=== PATIENT | male | born 1965 | race Caucasian/White ===

== ENCOUNTER 2016-05-17 03:49 | Observation (INO) | payer OTHER ==
[~2016-05-17] VITALS: Ht 182.9 cm; Wt 103.0 kg
[~2016-05-17 03:49] MED LIST: DABI150C PO; GARL10007 PO; LISI-792 PO; MAGN250T16 PO; METF-384 PO; METO50TA16 PO; OMEG10007 PO; TMB/100 PO; potassium PO
--- NOTE | 2016-05-17 04:29 | EMERGENCY ROOM VISIT NOTE ---
History Report prepared by Peg: Maria L Evangelista Under the Supervision of: Dr. Kathleen Luciano D.O. First contact with patient: 04:22 Chief Complaint: CARDIAC ASSESSMENT Stated Complaint: IRREGULAR HEART RHYTHM Nursing Triage Summary: Patient arrives to ED via ALS transport with complaints of being in AFib earlier, feeling his heart race, and pressure of indigestion. Patient denies chest pain at this time, denies SOB. EMS stated that they felt his radial pulse was irregular when theu arrived on scene, but after standing up, getting on to the litter and converted to a regular rhythm on his own. Patient was NSR in the ED. History of Present Illness The patient is a 51 year old male who presents to the Emergency Room with complaints of resolved atrial fibrillation that occurred around 0230 this morning. The patient states that he has a history of atrial fibrillation. He states that he takes Flecainide, Metoprolol, Pradaxa, and Lisinopril. The patient states that the first time he was in atrial fibrillation he had a rapid rate. He states that the second time he went into atrial fibrillation his rate was only irregular. The patient states that today his atrial fibrillation appeared to be rapid and irregular. He denies any recent changes in medication. The patient states that he has gone in and out of atrial fibrillation several times but states that the episodes do not last long. He denies any recent strenuous activity. The patient denies any chest pain, nausea , vomiting, diarrhea, or leg cramping or swelling. He states that his occupation adds stress to his life. The patient states that he converted when EMS arrived. Source of History: patient Onset: 0230 Position: other (global) Quality: other (atrial fibrillation) Timing: resolved Associated Symptoms: No chest pain, No diarrhea, No nausea, No vomiting Review of Systems See HPI for pertinent positives & negatives. A total of 10 systems reviewed and were otherwise negative. Past Medical & Surgical Medical Problems: (1) Atrial fibrillation (2) Diabetes mellitus Family History Diabetes mellitus Heart disease Hypertension Social History Smoking Status: Never Smoker Marital Status: Occupation Status: employed Current/Historical Medications Scheduled Cinnamon (Cinnamon), 500 MG PO BID Dabigatran Etexilate Mesylate (Pradaxa), 150 MG PO BID Fish Oil ([place]-3), 1,200 MG PO DAILY Flecainide Acetate (Tambocor), 50 MG PO BID Garlic (Garlic), 1,000 MG PO DAILY Gemfibrozil (Lopid), 600 MG PO BID Lisinopril (Zestril), 40 MG PO DAILY Metformin Hcl (Glucophage), 1,000 MG PO BIDM Metoprolol Tartrate (Lopressor) (Lopressor), 100 MG PO BID Allergies Coded Allergies: No Known Allergies (Unverified , 05/17/16) Physical Exam Vital Signs Date Time Temp Pulse Resp B/P Pulse Ox O2 Delivery O2 Flow Rate FiO2 05/17/16 06:36 69 19 149/77 95 Room Air 05/17/16 06:23 72 05/17/16 06:08 75 05/17/16 05:20 72 18 158/87 05/17/16 04:06 77 05/17/16 04:03 37.3 82 19 180/97 95 Room Air 05/17/16 04:03 95 Room Air Physical Exam HEENT: Head - normocephalic and atraumatic Pupils are equal, round, and reactive to light. Extraocular eye muscles are intact, and sclera are anicteric. Nose - moist nasal mucosa without discharge. Mouth - moist buccal mucosa. Oropharynx is nonerythematous and there is no tonsillar exudate or edema noted. Neck: Supple; no JVD, nuchal rigidity, cervical lymphadenopathy. Heart: Regular rate and rhythm. There is a normal S1 and S2 with no murmurs, clicks, or gallops appreciated. Lungs: Clear to auscultation bilaterally with no wheezes, rales, or rhonchi. Abdomen: Soft, completely nontender, nondistended, with good bowel sounds. There are no palpable pulsatile masses or hepatosplenomegaly. There is no guarding, rigidity, or rebound noted. Extremities: No evidence of cyanosis, clubbing, or edema. There are easily palpable peripheral pulses. Skin: warm and dry with good turgor and no rashes. Medical Decision & Procedures ER Provider Diagnostic Interpretation: 1 view chest x-ray interpreted by me: no pleural effusion, no congestive heart failure Laboratory Results 05/17/16 04:00 Red Blood Count 4.84, Mean Corpuscular Volume 83.5, Mean Corpuscular Hemoglobin 30.4, Mean Corpuscular Hemoglobin Concent 36.4, Mean Platelet Volume 11.5, Neutrophils (%) (Auto) 53.9, Lymphocytes (%) (Auto) 34.8, Monocytes (%) (Auto) 7.7, Eosinophils (%) (Auto) 3.0, Basophils (%) (Auto) 0.3, Neutrophils # (Auto) 4.77, Lymphocytes # (Auto) 3.08, Monocytes # (Auto) 0.68, Eosinophils # (Auto) 0.27, Basophils # (Auto) 0.03 05/17/16 04:00 Test 05/17/16 04:00 White Blood Count 8.86 K/uL (4.8-10.8) Red Blood Count 4.84 M/uL (4.7-6.1) Hemoglobin 14.7 g/dL (14.0-18.0) Hematocrit 40.4 % (42-52) Mean Corpuscular Volume 83.5 fL (80-100) Mean Corpuscular Hemoglobin 30.4 pg (25-34) Mean Corpuscular Hemoglobin Concent 36.4 g/dl (32-36) Platelet Count 275 K/uL (130-400) Mean Platelet Volume 11.5 fL (7.4-10.4) Neutrophils (%) (Auto) 53.9 % Lymphocytes (%) (Auto) 34.8 % Monocytes (%) (Auto) 7.7 % Eosinophils (%) (Auto) 3.0 % Basophils (%) (Auto) 0.3 % Neutrophils # (Auto) 4.77 K/uL (1.4-6.5) Lymphocytes # (Auto) 3.08 K/uL (1.2-3.4) Monocytes # (Auto) 0.68 K/uL (0.11-0.59) Eosinophils # (Auto) 0.27 K/uL (0-0.5) Basophils # (Auto) 0.03 K/uL (0-0.2) RDW Standard Deviation 38.9 fL (36.4-46.3) RDW Coefficient of Variation 12.8 % (11.5-14.5) Immature Granulocyte % (Auto) 0.3 % Immature Granulocyte # (Auto) 0.03 K/uL (0.00-0.02) Anion Gap 10.0 mmol/L (3-11) Est Creatinine Clear Calc Drug Dose 109.2 ml/min Estimated GFR () 100.4 Estimated GFR (Non- 86.6 BUN/Creatinine Ratio 14.7 (10-20) Estimated Average Glucose 301 mg/dl Hemoglobin A1c 12.1 % (4.5-5.6) Calcium Level 9.2 mg/dl (8.5-10.1) Magnesium Level 1.9 mg/dl (1.8-2.4) Total Bilirubin 0.3 mg/dl (0.2-1) Direct Bilirubin 0.1 mg/dl (0-0.2) Aspartate Amino Transf (AST/SGOT) 26 U/L (15-37) Alanine Aminotransferase (ALT/SGPT) 52 U/L (12-78) Alkaline Phosphatase 29 U/L (45-117) Total Creatine Kinase 61 U/L (39-308) Creatine Kinase MB 1.1 ng/ml (0.5-3.6) Creatine Kinase MB Ratio 1.8 (0-3.0) Troponin I < 0.015 ng/ml (0-0.045) Pro-B-Type Natriuretic Peptide 67 pg/ml (0-900) Total Protein 7.8 gm/dl (6.4-8.2) Albumin 3.5 gm/dl (3.4-5.0) Beta-Hydroxybutyric Acid 3.71 mg/dL (0.2-2.81) Thyroid Stimulating Hormone (TSH) 2.010 uIu/ml (0.300-4.500) Laboratory results per my review. Medications Administered Medications (Trade) Dose Ordered Sig/Faustino Route Start Time Stop Time Status Last Admin Dose Admin Sodium Chloride 1,000 ml @ 200 mls/hr Q5H STAT IV 05/17/16 06:34 05/17/16 08:58 DC 05/17/16 06:34 200 MLS/HR Sodium Chloride (Nss 1000ml) 1,000 ml @ 125 mls/hr Q8H IV 05/17/16 07:40 05/17/16 11:59 DC 05/17/16 09:50 125 MLS/HR Insulin Glargine (Lantus Solostar Pen) 8 unit NOW ONCE SC 05/17/16 07:45 05/17/16 08:12 DC 05/17/16 08:37 8 UNIT Procedure The patient was treated with Sodium Chloride 1000 ml @ 200 mls/hr IV. ECG Rate (beats per minute): 79 Rhythm: normal sinus Findings: no acute ischemic change, no ectopy ED Course 0441: Past medical records reviewed. The patient was evaluated in room A2. A complete history and physical exam was performed. A twelve-lead EKG was obtained as described above. An IV lock was initiated and labs were drawn as above. He was observed on the personnel monitor. 0543: I reevaluated the patient and he states that he feels fine. I updated him on his blood glucose level. 0603: I reevaluated the patient and he is resting comfortably. I discussed all the exam findings with him and I discussed the treatment plan. He verbalized complete understanding and agreement. He will be evaluated for further treatment. 0630: CHRISTA Caicedo Was contacted and said he would have the daylight shift come to the ER to see the patient . The [facility] will evaluate the patient for further treatment. 0634: Ordered Sodium Chloride 1000 ml @ 200 mls/hr IV. Medical Decision The patient is a 51 year old male who presents to the ED with resolved atrial fibrillation. Differential diagnosis includes A-fib with RVR, cardiac ischemia, acute coronary syndrome. Lab interpretation: normal white count, stable H&H, normal renal function, glucose 403, BHA 7.1, normal TSH, negative cardiac enzyme, BNP 67, normal LFTs. This is a 51-year-old male patient with a history of diabetes and A. fib who presents to the emergency department after having significant palpitations. When EMS initially saw the patient, took a pulse which was noted to be tachycardic and irregular. As they're moving the patient to the stretcher, the A. fib broke. Upon arrival in the emergency room, the patient was in a normal sinus rhythm. There is no arrhythmia while here in the ER. However, the patient has significant hyperglycemia with an elevated BHA concerning for DKA. I did discuss the case with the [facility] hospitalist JOSE CARLOS and they will evaluate the patient for further care. The patient is [id number] and is only taking metformin. Consults Time Called: [phone] Consulting Physician: CHRISTA Caicedo Returned Call: [phone] I discussed the patient's case with CHRISTA Caicedo. The [facility] will evaluate the patient for further treatment. Impression Primary Impression: Atrial fibrillation Additional Impression: Diabetes mellitus with hyperglycemia Scribe Attestation The scribe's documentation has been prepared under my direction and personally reviewed by me in its entirety. I confirm that the note above accurately reflects all work, treatment, procedures, and medical decision making performed by me. Departure Information Dispostion Being Evaluated By Hospitalist Referrals Mag Dewey M.D. (PCP) Problem Qualifiers
[2016-05-17 04:50] LABS: BASO % 0.3 %; BASO ABS # 0.03 K/uL (0-0.2); COMPLETE YES; HEMATOCRIT 40.4 % (42-52); IG% 0.3 %; LYMPH % 34.8 %; LYMPH ABS # 3.08 K/uL (1.2-3.4); MEAN CELL VOLUME 83.5 fL (80-100); MEAN CORPUSCULAR HEMOGLOBIN 30.4 pg (25-34); MEAN CORPUSCULAR HGB CONC 36.4 g/dl (32-36); MEAN PLATELET VOLUME 11.5 fL (7.4-10.4); MONO % 7.7 %; NEUT % 53.9 %; PLATELET COUNT 275 K/uL (130-400); RED BLOOD COUNT 4.84 M/uL (4.7-6.1); WHITE BLOOD COUNT 8.86 K/uL (4.8-10.8)
[2016-05-17 05:12] LABS: ALKALINE PHOSPHATASE 29 U/L (45-117); ALT/SGPT 52 U/L (12-78); AST/SGOT 26 U/L (15-37); BLOOD UREA NITROGEN 15 mg/dl (7-18); BUN/CREATININE RATIO 14.7 (10-20); CALCIUM 9.2 mg/dl (8.5-10.1); CARBON DIOXIDE 24 mmol/L (21-32); CHLORIDE 99 mmol/L (98-107); CKMB/CK RATIO 1.8 (0-3.0); CREATININE 0.99 mg/dl (0.60-1.40); GLUCOSE 403 mg/dl (70-99); SODIUM 133 mmol/L (136-145)
[2016-05-17] MEDS ORDERED: GEMF600T3 PO (05:17)
[2016-05-17] MEDS ORDERED: CINN1CAP2 PO (05:17)
[2016-05-17 05:38] LABS: BETA-HYDROXYBUTYRATE 3.71 mg/dL (0.2-2.81)
[2016-05-17] MEDS ORDERED: SODIUM CHLORIDE 0.9% 1000ML 1,000 ML IV STA (06:34)
[2016-05-17] MEDS ORDERED: SODIUM CHLORIDE 0.9% 1000ML 1,000 ML IV SCH (07:40)
[2016-05-17] MEDS ORDERED: METOPROLOL TARTRATE 1 MG/ML VIAL IV PRN (07:45)
[2016-05-17] MEDS ORDERED: ACETAMINOPHEN 325 MG TAB PO PRN (07:45)
[2016-05-17] MEDS ORDERED: INSULIN GLARGINE SOLOSTAR 100 UNITS/ML 3 ML PEN SC ONE (07:45)
[2016-05-17] MEDS ORDERED: ALUMINUM/MAGNESIUM/SIMETH (MAALOX MAX) 30 ML UDC PO PRN (07:45)
[2016-05-17] MEDS ORDERED: ONDANSETRON INJ 2 MG/ML 2 ML VIAL IV PRN (07:45)
[2016-05-17] MEDS ORDERED: POLYETHYLENE (MIRALAX) 17 GM PACK PO PRN (07:45)
[2016-05-17] MEDS ORDERED: MAGNESIUM HYDROXIDE SUSP 30 ML UDC PO PRN (07:45)
[2016-05-17] MEDS ORDERED: NITROGLYCERIN 0.4 MG SL PER TAB CHARGE SL PRN (07:45)
--- NOTE | 2016-05-17 08:01 | DIAGNOSTIC IMAGING REPORT ---
SINGLE VIEW CHEST CLINICAL HISTORY: Atrial fibrillation. FINDINGS: An AP, portable, upright chest radiograph is compared to study dated 08/13/2012. The examination is degraded by portable technique and patient rotation. The heart is top normal for projection. The pulmonary vasculature is noncongested. The lungs and pleural spaces are clear. No pneumothorax is seen. The bony thorax is grossly intact. IMPRESSION: No acute cardiopulmonary abnormality. Electronically signed by: Riaz Barney M.D. 05/17/2016 8:00 AM Dictated Date/Time: 05/17/2016 7:59 AM
--- NOTE | 2016-05-17 08:05 | History and Physical ---
History & Physical Date & Time of Service: May 17, 2016 at 07:48 Chief Complaint: Irregular Heart Rhythm Primary Care Physician: Mag Dewey M.D. History of Present Illness Source: patient, clinic records, hospital records Patient is a pleasant 51 y/o male, with PMHx of a.fib w/ RVR, T2DM, HTN, and hypercholesterolemia, who presented to the ED via EMS due to a.fib w/ RVR. Patient felt an irregular and fast heart rate at 0230 this morning. He converted in EMS while on his way to the emergency room. EKG at arrival to ED reported NSR. He has been successfully cardioverted x2 in the past. While in the ED, patient was found to be hyperglycemic w/ blood sugar of 403, beta- hydroxybutyric of 3.71. Per patient, during the winter months his sugars always elevate. He has been running 230-250s. He reports taking only Metformin 1000 mg BID. Currently, patient states he is feeling well. He denies any recent illnesses. Patient denies any fever, chills, sweats, lightheadedness, dizziness , vision changes, CP, palpitations, edema, SOB, wheezing, cough, abdominal pain , nausea, vomiting, diarrhea, urinary symptoms, melena, numbness/tingling, weakness, muscle/joint pain, anxiety/depression, active bleeding, or new skin discoloration/changes. Past Medical/Surgical History Medical Problems: 1. A.fib 2. T2DM 3. HTN 4. Hypercholesterolemia Family History Diabetes mellitus Heart disease Hypertension Social History Smoking Status: Former Smoker Marital Status: Occupational Status: employed ([employer] offs[employer] ) Immunizations History of Influenza Vaccine: N/A History of Tetanus Vaccine?: utd History of Pneumococcal: No History of Hepatitis B Vaccine: No Allergies Coded Allergies: No Known Allergies (Unverified , 05/17/16) Home Medications Scheduled Cinnamon (Cinnamon), 500 MG PO BID Dabigatran Etexilate Mesylate (Pradaxa), 150 MG PO BID Fish Oil ([place]-3), 1,200 MG PO DAILY Flecainide Acetate (Tambocor), 50 MG PO BID Garlic (Garlic), 1,000 MG PO DAILY Gemfibrozil (Lopid), 600 MG PO BID Lisinopril (Zestril), 40 MG PO DAILY Metformin Hcl (Glucophage), 1,000 MG PO BIDM Metoprolol Tartrate (Lopressor) (Lopressor), 100 MG PO BID Physical Exam Vital Signs Date Time Temp Pulse Resp B/P Pulse Ox O2 Delivery O2 Flow Rate FiO2 05/17/16 06:36 69 19 149/77 95 Room Air 05/17/16 06:23 72 05/17/16 06:08 75 05/17/16 05:20 72 18 158/87 05/17/16 04:06 77 05/17/16 04:03 37.3 82 19 180/97 95 Room Air 05/17/16 04:03 95 Room Air General Appearance: no apparent distress Head: normocephalic, atraumatic Eyes: normal inspection, PERRL ENT: hearing grossly normal Neck: supple Respiratory/Chest: lungs clear, no respiratory distress, no accessory muscle use Cardiovascular: regular rate, rhythm Abdomen/GI: normal bowel sounds, non tender, soft Back: normal inspection Extremities/Musculoskelatal: no calf tenderness, no pedal edema Neurologic/Psych: alert, normal mood/affect, oriented x 3 Skin: normal color, warm/dry, no rash Diagnostics Laboratory Results Results Past 24 Hours Test 05/17/16 04:00 Range/Units White Blood Count 8.86 4.8-10.8 K/uL Red Blood Count 4.84 4.7-6.1 M/uL Hemoglobin 14.7 14.0-18.0 g/dL Hematocrit 40.4 42-52 % Mean Corpuscular Volume 83.5 80-100 fL Mean Corpuscular Hemoglobin 30.4 25-34 pg Mean Corpuscular Hemoglobin Concent 36.4 32-36 g/dl Platelet Count 275 130-400 K/uL Mean Platelet Volume 11.5 7.4-10.4 fL Neutrophils (%) (Auto) 53.9 % Lymphocytes (%) (Auto) 34.8 % Monocytes (%) (Auto) 7.7 % Eosinophils (%) (Auto) 3.0 % Basophils (%) (Auto) 0.3 % Neutrophils # (Auto) 4.77 1.4-6.5 K/uL Lymphocytes # (Auto) 3.08 1.2-3.4 K/uL Monocytes # (Auto) 0.68 0.11-0.59 K/uL Eosinophils # (Auto) 0.27 0-0.5 K/uL Basophils # (Auto) 0.03 0-0.2 K/uL RDW Standard Deviation 38.9 36.4-46.3 fL RDW Coefficient of Variation 12.8 11.5-14.5 % Immature Granulocyte % (Auto) 0.3 % Immature Granulocyte # (Auto) 0.03 0.00-0.02 K/uL Sodium Level 133 136-145 mmol/L Potassium Level 4.0 3.5-5.1 mmol/L Chloride Level 99 98-107 mmol/L Carbon Dioxide Level 24 21-32 mmol/L Anion Gap 10.0 3-11 mmol/L Blood Urea Nitrogen 15 7-18 mg/dl Creatinine 0.99 0.60-1.40 mg/dl Est Creatinine Clear Calc Drug Dose 109.2 ml/min Estimated GFR () 100.4 Estimated GFR (Non- 86.6 BUN/Creatinine Ratio 14.7 10-20 Random Glucose 403 70-99 mg/dl Calcium Level 9.2 8.5-10.1 mg/dl Total Bilirubin 0.3 0.2-1 mg/dl Direct Bilirubin 0.1 0-0.2 mg/dl Aspartate Amino Transf (AST/SGOT) 26 15-37 U/L Alanine Aminotransferase (ALT/SGPT) 52 12-78 U/L Alkaline Phosphatase 29 45-117 U/L Total Creatine Kinase 61 39-308 U/L Creatine Kinase MB 1.1 0.5-3.6 ng/ml Creatine Kinase MB Ratio 1.8 0-3.0 Troponin I < 0.015 0-0.045 ng/ml Pro-B-Type Natriuretic Peptide 67 0-900 pg/ml Total Protein 7.8 6.4-8.2 gm/dl Albumin 3.5 3.4-5.0 gm/dl Beta-Hydroxybutyric Acid 3.71 0.2-2.81 mg/dL Thyroid Stimulating Hormone (TSH) 2.010 0.300-4.500 uIu/ml Diagnostic Radiology SINGLE VIEW CHEST CLINICAL HISTORY: Atrial fibrillation. FINDINGS: An AP, portable, upright chest radiograph is compared to study dated 08/13/2012. The examination is degraded by portable technique and patient rotation. The heart is top normal for projection. The pulmonary vasculature is noncongested. The lungs and pleural spaces are clear. No pneumothorax is seen. The bony thorax is grossly intact. IMPRESSION: No acute cardiopulmonary abnormality. Electronically signed by: Riaz Barney M.D. 05/17/2016 8:00 AM Dictated Date/Time: 05/17/2016 7:59 AM The status of this report is Signed. Draft = Not yet reviewed or approved by Radiologist. Signed = Reviewed and approved by Radiologist. EKG MASON DELGADO ID:[id number] 17-MAY-2016 03:53:54 [facility] Normal sinus rhythm Possible Left atrial enlargement Septal infarct , age undetermined Abnormal ECG When compared with ECG of 10-SEP-2012 07:38, No significant change was found 25mm/s 10mm/mV 150Hz 8.0 SP2 12SL 241 NIDIA: 0 Referred by: Referred Self Unconfirmed Vent. 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 Santana T2DM w/ hyperglycemia: - Lantus 8 u now - BSG ACHS w/ sliding insulin scale - Continue Metformin 1000 mg PO BID - Check ha1c--> patient will likely need additional glycemic medications- blood sugars have been running 230-250s Mild hyponatremia: Treat w/ IV NSS @ 125 ml/hr HTN: Continue Lisinopril 40 mg PO daily Hypercholesterolemia: Continue Gemfibrozil 600 mg PO BID GI Prophylaxis: Maalox PRN, IV Zofran PRN, Colace and/or Milk of Mag PRN DVT prophylaxis: Pradaxa, BENJAMIN and SCDs Code Status: LEVEL I, FULL Dispo: Discharge to home once medically stable Level of Care Telemetry Resuscitation Status FULL RESUSCITATION VTE Prophylaxis VTE Risk Assessment Done? Y/N: Yes Risk Level: Low Given or contraindicated: Other Anticoagulation, T.E.D. Stockings, SCD's
[2016-05-17] MEDS ORDERED: IV FLUIDS COMPLETED PRN (08:15)
[2016-05-17] MEDS ORDERED: GLUCOSE 10 TABS/TUBE PO PRN (08:30)
[2016-05-17] MEDS ORDERED: GLUCAGON FOR INJ 1 MG VIAL SQ PRN (08:30)
[2016-05-17] MEDS ORDERED: DEXTROSE 50% 50 ML SYR IV PRN (08:30)
[2016-05-17] MEDS ORDERED: GLUCOSE 40% GEL 15 GM TUBE PO PRN (08:30)
[2016-05-17 09:05] VITALS: BP 153/92; PULSE 63; TEMP 36.9; O2SAT 96; Ht 182.9 cm; Wt 103.0 kg
[2016-05-17] MEDS: METFORMIN HCL 500 MG TAB PO SCH ×2 (09:50→17:18)
[2016-05-17] MEDS: OMEGA-3 (PURIFIED FISH OIL) 1 GM CAP PO SCH (09:50)
[2016-05-17] MEDS: METOPROLOL TARTRATE 50 MG TAB PO SCH ×2 (09:51→21:02)
[2016-05-17] MEDS: GEMFIBROZIL 600 MG TAB PO SCH ×2 (09:51→21:03)
[2016-05-17] MEDS: DABIGATRAN ELEXILATE 75 MG CAP PO SCH ×2 (09:51→21:03)
[2016-05-17] MEDS: FLECAINIDE ACETATE 100 MG TAB PO SCH ×2 (09:51→21:03)
[2016-05-17] MEDS: LISINOPRIL 20 MG TAB PO SCH (09:52)
[2016-05-17 10:07] LABS: ESTIMATED AVERAGE GLUCOSE 301 mg/dl; HA1C FLAG Normal (Normal)
[2016-05-17 11:56] VITALS: BP 154/83; PULSE 58; TEMP 36.7; O2SAT 95
[2016-05-17] MEDS ORDERED: SITAGLIPTIN 25 MG TAB PO ONE (11:57)
[2016-05-17] MEDS: INSULIN ASPART 100 UNITS/ML 3 ML PEN SC SCH ×3 (12:23→21:00)
[2016-05-17 16:30] VITALS: BP 121/75; PULSE 65; TEMP 36.3; O2SAT 98
[2016-05-17 19:33] VITALS: BP 131/68; PULSE 65; TEMP 36.6; O2SAT 97
[2016-05-17 23:20] VITALS: BP 111/67; PULSE 63; TEMP 36.8; O2SAT 98
[2016-05-18 04:12] VITALS: BP 128/78; PULSE 57; TEMP 36.8; O2SAT 98
[2016-05-18 07:05] VITALS: BP 135/77; PULSE 53; TEMP 36.9; O2SAT 97
[2016-05-18 07:32] LABS: BUN/CREATININE RATIO 17.7 (10-20); CALCIUM 9.1 mg/dl (8.5-10.1); CREATININE 0.84 mg/dl (0.60-1.40); POTASSIUM 3.8 mmol/L (3.5-5.1)
[2016-05-18] MEDS: LISINOPRIL 20 MG TAB PO SCH (08:03)
[2016-05-18] MEDS: FLECAINIDE ACETATE 100 MG TAB PO SCH (08:03)
[2016-05-18] MEDS: DABIGATRAN ELEXILATE 75 MG CAP PO SCH (08:04)
[2016-05-18] MEDS: GEMFIBROZIL 600 MG TAB PO SCH (08:05)
[2016-05-18] MEDS: METOPROLOL TARTRATE 50 MG TAB PO SCH (08:05)
[2016-05-18] MEDS: METFORMIN HCL 500 MG TAB PO SCH (08:06)
[2016-05-18] MEDS: OMEGA-3 (PURIFIED FISH OIL) 1 GM CAP PO SCH (08:06)
[2016-05-18] MEDS: INSULIN ASPART 100 UNITS/ML 3 ML PEN SC SCH (08:14)
[2016-05-18] MEDS ORDERED: JNV100 PO (08:48)
--- NOTE | 2016-05-18 08:53 | Discharge Instructions ---
Discharge Instructions Date of Service May 18, 2016. Admission Reason for Admission: Diabetes Mellitus With Hyperglycemia Discharge Discharge Diagnosis / Problem: Atrial fibrillation, paroxysmal. DM type II with hyperglycemia Discharge Goals Goal(s): Improve function, Improve disease control Activity Recommendations Activity Limitations: resume your previous activity Lifting Limitations: none Exercise/Sports Limitations: as tolerated May Resume Sexual Activity: when tolerated Shower/Bathe: no limitations Driving or Machine Use: no limitations . Instructions / Follow-Up Instructions / Follow-Up Medications: resume all previous medications - JANUVIA: new medication for Diabetes, 100mg daily, take every morning Atrial fibrillation: you were in normal rhythm entire admission Diabetes: poorly controlled with HbA1c of 12.1 indicating average sugars 301 at home. continue Metformin 1000mg daily, added Januvia 100mg every morning important that you eat low carbohydrate diet, high proteins, healthy fats ( nuts, olive oil) cannot stress enough the importance of losing weight, goal for you initially would be 10% of body weight which would be 25 pounds over next 3 months get regular exercise as we discussed, ideally you would benefit from long acting insulin to help get your A1c to goal, would recommend Lantus 15 units every morning you can discuss this further with Dr. Dewey FOLLOW UP - Dr. Dewey in two weeks as previously scheduled Current Hospital Diet Patient's current hospital diet: Diabetes Type 1 Diet Discharge Diet Recommended Diet: Diabetes Type 2 Diet Pending Studies Studies pending at discharge: no Laboratory Results Last Resulted CBC 05/17/16 04:00 Red Blood Count 4.84, Mean Corpuscular Volume 83.5, Mean Corpuscular Hemoglobin 30.4, Mean Corpuscular Hemoglobin Concent 36.4, Mean Platelet Volume 11.5, Neutrophils (%) (Auto) 53.9, Lymphocytes (%) (Auto) 34.8, Monocytes (%) (Auto) 7.7, Eosinophils (%) (Auto) 3.0, Basophils (%) (Auto) 0.3, Neutrophils # (Auto) 4.77, Lymphocytes # (Auto) 3.08, Monocytes # (Auto) 0.68, Eosinophils # (Auto) 0.27, Basophils # (Auto) 0.03 Last Resulted BMP 05/18/16 06:40 Hemoglobin A1c Test 05/17/16 04:00 Range/Units Estimated Average Glucose 301 mg/dl Hemoglobin A1c 12.1 H 4.5-5.6 % Medical Emergencies . Who to Call and When: Medical Emergencies: If at any time you feel your situation is an emergency, please call 911 immediately. . Non-Emergent Contact Non-Emergency issues call your: Primary Care Provider Call Non-Emergent contact if: you have any medication questions . . "Provider Documentation" section prepared by Ray Bryant. VTE Core Measure Inpt VTE Proph given/why not?: Other Anticoagulation, T.E.D. Stockings, SCD's [place] Drug Monitoring Program Search Results: no issues identified
--- NOTE | 2016-05-18 08:57 | Discharge Summary ---
Discharge Summary Date of Service May 18, 2016. Discharge Summary Admission Date: May 17, 2016 at 07:47 Discharge Date: May 18, 2016 Discharge Disposition: Home Principal Diagnosis: DM type II with hyperglycemia Problems/Secondary Diagnoses: Paroxysmal atrial fibrillation Immunizations: Have You Had Influenza Vaccine: N/A History of Tetanus Vaccine?: utd History of Pneumococcal: No History of Hepatitis B Vaccine: No Procedures: none Consultations: none Medication Reconciliation New Medications: Sitagliptin (Januvia) 100 Mg Tab 100 MG PO DAILY, #30 TAB 3 Refills Continued Medications: Cinnamon (Cinnamon) 500 Mg Cap 500 MG PO BID Dabigatran Etexilate Mesylate (Pradaxa) 150 Mg Cap 150 MG PO BID, #60 CAP Fish Oil ([place]-3) 1 Ea Cap 1200 MG PO DAILY, CAP Flecainide Acetate (Tambocor) 100 Mg Tab 50 MG PO BID, #30 Garlic (Garlic) 1,000 Mg Cap 1000 MG PO DAILY Gemfibrozil (Lopid) 600 Mg Tab 600 MG PO BID, TAB Lisinopril (Zestril) 20 Mg Tab 40 MG PO DAILY, TAB Metformin Hcl (Glucophage) 1,000 Mg Tab 1000 MG PO BIDM, TAB Metoprolol Tartrate (Lopressor) (Lopressor) 50 Mg Tab 100 MG PO BID, TAB Discharge Exam Patient feeling well, no issues over night. long talk about diabetes control, eating healthy, weight loss, exercise, and my recommendation for Lantus which again he refuses. Review of Systems: Constitutional: No chills, No fatigue, No fever, No problem reported, No sweats, No weakness, No weight loss Eyes: No diplopia, No discharge, No eye pain, No problem reported, No redness, No worsening of vision ENT: No dental problems, No hearing loss, No nasal symptoms, No problem reported, No sore throat, No tinnitus, No trouble swallowing, No unusual epistaxis Respiratory: No cough, No dyspnea at rest, No dyspnea on exertion, No hemoptysis, No problem reported, No shortness of breath, No sputum, No wheezing Cardiovascular: No PND, No chest pain, No claudication, No edema, No orthopnea, No palpitations, No problem reported Abdomen: No GI bleeding, No constipation, No diarrhea, No nausea, No pain, No problem reported, No vomiting Musculoskeletal: No calf pain, No joint pain, No muscle pain, No problem reported, No swelling Genitourinary - Male: No dysuria, No hematuria, No urinary frequency, No urinary urgency Neurologic: No balance problems, No memory loss, No numbness/tingling, No paralysis, No problem reported, No vertigo, No weakness Psychiatric: No anhedonism, No anxiety, No depression symptoms, No insomnia , No problem reported, No substance abuse Endocrine: No excessive thirst, No excessive urination, No fatigue, No problem reported Hematologic / Lymphatic: No abnormal bleeding/bruising, No clotting problems , No night sweats, No problem reported, No swollen lymph nodes Integumentary: No bleeding, No color change, No itch, No new/changing skin lesions, No problem reported, No rash Physical Exam: General Appearance: WD/WN, no apparent distress Eyes: normal inspection, EOMI, sclerae normal ENT: normal ENT inspection, hearing grossly normal, pharynx normal Neck: supple, no adenopathy, no JVD, trachea midline Respiratory/Chest: chest non-tender, lungs clear, normal breath sounds, no respiratory distress, no accessory muscle use Cardiovascular: regular rate, rhythm, no edema, no gallop, no JVD, no murmur , normal peripheral pulses Abdomen / GI: normal bowel sounds, non tender, soft, no organomegaly Extremities: normal inspection, no calf tenderness, normal capillary refill , no pedal edema, normal range of motion, pelvis stable Neurologic/Psychiatric: java engineer II-XII nml as tested, no motor/sensory deficits , alert, normal mood/affect, normal reflexes, oriented x 3 Skin: normal color, warm/dry, no rash Hospital Course 51 yo male with h/o paroxysmal atrial fibrillation, typically maintained in NSR on Flecainide, had brief episode of atrial fibrillation but converted spontaneously prior to arrival in ED - Paroxysmal atrial fibrillation: converted spontaneously, observe overnight, electrolytes normal, remained in NSR continue Flecainide, Lopressor on Pradaxa for anticoagulation follow up with cardiology in a few weeks as previously scheduled - DM type II, poorly controlled, here with hyperglycemia normal HCO3, normal AG, normal beta hydroxybutyrate, no evidence of DKA discussed with patient, he has been on Metformin for 6 years, never on other medications sugars typically 250-300 at home when he checks HbA1c 12.1 with average sugars 301 discussed that he needs more medications and lifestyle changes, also would benefit from Lantus start Januvia 100mg daily my recommendation would be Januvia and Lantus on discharge, he refuses the Lantus because 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 Dewey in 2 weeks Total Time Spent: Greater than 30 minutes This includes examination of the patient, discharge planning, medication reconciliation, and communication with other providers. Discharge Instructions Please refer to the electronic Patient Visit Report (Discharge Instructions) for additional information. Follow-Up Dr. Dewey in two weeks, previously scheduled appointment Additional Copies To Mag Dewey M.D.
[2016-05-18] MEDS ORDERED: SITAGLIPTIN 25 MG TAB PO SCH (09:00)
[2016-05-18] MEDS ORDERED: SITAGLIPTIN 100 MG TAB PO SCH (09:00)
[2016-05-18] MEDS ORDERED: INSULIN GLARGINE SOLOSTAR 100 UNITS/ML 3 ML PEN SC ONE (09:00)
[2016-05-18 09:39] VITALS: BP 135/77; PULSE 53; TEMP 36.9; O2SAT 97
== END 2016-05-18 11:00 | disposition home or self-care (01) ==
LOC: ENRESERVDT → ENRESERVTM → EDBD 03:49 → C.EDA 03:50 → C.MED 07:47
PROVIDERS: ADMIT Internal Medicine; ATTEND Internal Medicine
DX: I48.0 Paroxysmal atrial fibrillation (principal); E11.65 Type 2 diabetes mellitus with hyperglycemia; E87.1 Hypo-osmolality and hyponatremia; E78.00 Pure hypercholesterolemia, unspecified; I10 Essential (primary) hypertension; Z79.4 Long term (current) use of insulin; Z87.891 Personal history of nicotine dependence; Z83.3 Family history of diabetes mellitus; Z82.49 Family history of ischemic heart disease and other diseases of the circulatory system

== ENCOUNTER 2016-08-04 11:02 | Emergency (ER) | payer OTHER ==
[~2016-08-04] VITALS: Ht 182.9 cm; Wt 103.9 kg
[~2016-08-04 11:02] MED LIST changes: +CINN1CAP2 PO; +GEMF600T3 PO; +JNV100 PO; -MAGN250T16 PO; -potassium PO
[2016-08-04 11:04] VITALS: Ht 182.9 cm; Wt 103.9 kg
[2016-08-04] MEDS ORDERED: SODIUM CHLORIDE 0.9% 1000ML 1,000 ML IV STA ×3 (11:19→13:24)
[2016-08-04] MEDS ORDERED: ONDANSETRON INJ 2 MG/ML 2 ML VIAL IV STA (11:19)
[2016-08-04 12:15] LABS: URINE APPEARANCE CLEAR (CLEAR); URINE BILIRUBIN NEG (NEG); URINE COLOR YELLOW; URINE NITRITE NEG (NEG); URINE SPECIFIC GRAVITY 1.033 (1.000-1.030); UROBILINOGEN NEG (NEG); ZZUR CULT IF INDIC CLEAN CATCH NO
[2016-08-04 12:24] LABS: MANUAL MICROSCOPIC REQUIRED? NO; REVIEW REQ? NO
[2016-08-04 12:31] LABS: HEMATOCRIT 43.3 % (42-52); MEAN CELL VOLUME 83.1 fL (80-100); MEAN CORPUSCULAR HEMOGLOBIN 30.3 pg (25-34); MEAN CORPUSCULAR HGB CONC 36.5 g/dl (32-36); MEAN PLATELET VOLUME 11.7 fL (7.4-10.4); PLATELET COUNT 284 K/uL (130-400); RED BLOOD COUNT 5.21 M/uL (4.7-6.1); WHITE BLOOD COUNT 8.62 K/uL (4.8-10.8)
[2016-08-04 12:57] LABS: ALB/GLOB RATIO 0.9 (0.9-2); ALKALINE PHOSPHATASE 36 U/L (45-117); ALT/SGPT 44 U/L (12-78); AST/SGOT 25 U/L (15-37); BLOOD UREA NITROGEN 17 mg/dl (7-18); BUN/CREATININE RATIO 15.6 (10-20); CALCIUM 9.5 mg/dl (8.5-10.1); CARBON DIOXIDE 25 mmol/L (21-32); CHLORIDE 95 mmol/L (98-107); GLUCOSE 497 mg/dl (70-99); MAGNESIUM 1.9 mg/dl (1.8-2.4); POTASSIUM 4.6 mmol/L (3.5-5.1); SODIUM 132 mmol/L (136-145); THYROID STIMULATING HORMONE 0.725 uIu/ml (0.300-4.500)
[2016-08-04 12:59] LABS: BASO ABS # 0.08 K/uL (0-0.2); BASOPHIL % 0.9 % (0-2); COMPLETE YES; EOSINOPHIL % 7.1 %; LYMPH ABS # 1.92 K/uL (1.2-3.4); LYMPHOCYTE % 22.3 %; META ABS # 0.08 K/uL (0-0); METAMYELOCYTE % 0.9 %; NEUTROPHILS % 63.4 %
[2016-08-04] MEDS ORDERED: NovoLIN-R INSULIN PER UNIT CHARGE IV STA ×2 (13:04→14:06)
[2016-08-04 13:18] LABS: BETA-HYDROXYBUTYRATE 2.13 mg/dL (0.2-2.81)
[2016-08-04 15:44] VITALS: BP 153/94; PULSE 68; TEMP 36.6; O2SAT 97
--- NOTE | 2016-08-04 16:25 | EMERGENCY ROOM VISIT NOTE ---
History Report prepared by Peg: Russ Mckenzie Under the Supervision of: Dr. Riaz Resendiz M.D. First contact with patient: 11:16 Chief Complaint: HYPERGLYCEMIA Stated Complaint: HYPERGLYCEMIA Nursing Triage Summary: Pt states he checked his blood sugar and it was 374 approx 45 minutes ago. Does not take insulin regularly, takes metformin. History of Present Illness The patient is a 51 year old male who presents to the Emergency Room with complaints of worsening hyperglycemia that started this morning. The patient states that he has been a Type 2 Diabetic since 1989. He reports that he uses Metformin 1000 mg twice a day, and he denies any change in dosage since his diagnosis. 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 He reports that he checked his glucose level and it was 294 mg earlier this morning and 347 mg 45 minutes ago. The patient states that his normal glucose range is in the 200s. The patient complains of stress, dysuria, dehydration, and admits to a history of atrial fibrillation. He states that he current takes Pradaxa and Flecainide but denies any change in dosage. He reports that the last time he had an experience with atrial fibrillation, he was cardioverted. The patient states that he does not believe his symptoms are related to atrial fibrillation. He reports that he does not eat often and does not eat many fruits or vegetables. The patient denies any congestion, cough, fever, nausea, cold like symptoms, suicidal thoughts, chest pain, and change in eating habits. Source of History: patient Onset: this morning Position: other (global) Quality: other (weakness) Timing: worsening Associated Symptoms: + urinary symptoms, + weakness, No fevers, No cough, No chest pain, No nausea Review of Systems See HPI for pertinent positives & negatives. A total of 10 systems reviewed and were otherwise negative. Past Medical & Surgical Medical Problems: (1) Atrial fibrillation (2) Diabetes mellitus Family History Diabetes mellitus Heart disease Hypertension Social History Smoking Status: Former Smoker Marital Status: Occupation Status: employed Current/Historical Medications Scheduled Cinnamon (Cinnamon), 500 MG PO BID Dabigatran Etexilate Mesylate (Pradaxa), 150 MG PO BID Fish Oil ([place]-3), 1,200 MG PO DAILY Flecainide Acetate (Tambocor), 50 MG PO BID Garlic (Garlic), 1,000 MG PO DAILY Gemfibrozil (Lopid), 600 MG PO BID Lisinopril (Zestril), 40 MG PO DAILY Metformin Hcl (Glucophage), 1,000 MG PO BIDM Metoprolol Tartrate (Lopressor) (Lopressor), 100 MG PO BID Allergies Coded Allergies: No Known Allergies (Unverified , 08/04/16) Physical Exam Vital Signs Date Time Temp Pulse Resp B/P (MAP) Pulse Ox O2 Delivery O2 Flow Rate FiO2 08/04/16 15:44 36.6 68 18 153/94 97 08/04/16 14:11 76 18 177/90 100 Room Air 08/04/16 11:04 36.6 77 18 166/91 95 Room Air Physical Exam GENERAL: Patient is in no acute distress. HEENT: No acute trauma, normocephalic atraumatic, mucous membranes moist, no nasal congestion, no scleral icterus. NECK: No stridor, no adenopathy, no meningismus, trachea is midline. LUNGS: Clear to auscultation bilaterally, no wheeze, no rhonchi, breath sounds equal. HEART: Without murmurs gallops or rubs, regular rate and rhythm. ABDOMEN: Soft, nontender, bowel sounds positive, no hernias, no peritonitis. EXTREMITIES: No cyanosis or edema, full range of motion of all the joints without pain or difficulty, no signs for acute trauma. NEUROLOGIC: Oriented x 3, no acute motor or sensory deficits, no focal weakness. SKIN: No rash, no jaundice, no diaphoresis. Psyc: Denies suicidal ideation. Medical Decision & Procedures Laboratory Results 08/04/16 11:50 Red Blood Count 5.21, Mean Corpuscular Volume 83.1, Mean Corpuscular Hemoglobin 30.3, Mean Corpuscular Hemoglobin Concent 36.5, Mean Platelet Volume 11.7 08/04/16 11:50 Test 08/04/16 11:50 08/04/16 14:36 White Blood Count 8.62 K/uL (4.8-10.8) Red Blood Count 5.21 M/uL (4.7-6.1) Hemoglobin 15.8 g/dL (14.0-18.0) Hematocrit 43.3 % (42-52) Mean Corpuscular Volume 83.1 fL (80-100) Mean Corpuscular Hemoglobin 30.3 pg (25-34) Mean Corpuscular Hemoglobin Concent 36.5 g/dl (32-36) Platelet Count 284 K/uL (130-400) Mean Platelet Volume 11.7 fL (7.4-10.4) RDW Standard Deviation 37.9 fL (36.4-46.3) RDW Coefficient of Variation 12.6 % (11.5-14.5) Neutrophils % (Manual) 63.4 % Lymphocytes % (Manual) 22.3 % Monocytes % (Manual) 5.4 % Eosinophils % (Manual) 7.1 % Basophils % (Manual) 0.9 % (0-2) Metamyelocytes % 0.9 % Neutrophils # (Manual) 5.47 K/uL (1.4-6.5) Total Absolute Neutrophils 5.47 K/uL (1.4-6.5) Lymphocytes # (Manual) 1.92 K/uL (1.2-3.4) Total Absolute Lymphocytes 1.92 K/uL (1.2-3.4) Monocytes # (Manual) 0.47 K/uL (0.11-0.59) Eosinophils # (Manual) 0.61 K/uL (0-0.5) Basophils # (Manual) 0.08 K/uL (0-0.2) Metamyelocytes # 0.08 K/uL (0-0) Red Blood Cell Morphology Unremarkable Urine Color YELLOW Urine Appearance CLEAR (CLEAR) Urine pH 5.0 (4.5-7.5) Urine Specific [place] 1.033 (1.000-1.030) Urine Protein NEG (NEG) Urine Glucose (UA) 3+ (NEG) Urine Ketones NEG (NEG) Urine Occult Blood NEG (NEG) Urine Nitrite NEG (NEG) Urine Bilirubin NEG (NEG) Urine Urobilinogen NEG (NEG) Urine Leukocyte Esterase NEG (NEG) Anion Gap 12.0 mmol/L (3-11) Est Creatinine Clear Calc Drug Dose 96.8 ml/min Estimated GFR () 88.4 Estimated GFR (Non- 76.2 BUN/Creatinine Ratio 15.6 (10-20) Calcium Level 9.5 mg/dl (8.5-10.1) Magnesium Level 1.9 mg/dl (1.8-2.4) Total Bilirubin 0.4 mg/dl (0.2-1) Aspartate Amino Transf (AST/SGOT) 25 U/L (15-37) Alanine Aminotransferase (ALT/SGPT) 44 U/L (12-78) Alkaline Phosphatase 36 U/L (45-117) Troponin I < 0.015 ng/ml (0-0.045) Total Protein 8.2 gm/dl (6.4-8.2) Albumin 3.9 gm/dl (3.4-5.0) Globulin 4.3 gm/dl (2.5-4.0) Albumin/Globulin Ratio 0.9 (0.9-2) Beta-Hydroxybutyric Acid 2.13 mg/dL (0.2-2.81) Thyroid Stimulating Hormone (TSH) 0.725 uIu/ml (0.300-4.500) Bedside Glucose 262 mg/dl (70-99) Laboratory results reviewed by me. Medications Administered Medications (Trade) Dose Ordered Sig/Faustino Route Start Time Stop Time Status Last Admin Dose Admin Ondansetron HCl (Zofran Inj) 4 mg NOW STAT IV 08/04/16 11:19 08/04/16 11:23 DC 08/04/16 11:57 4 MG Sodium Chloride 1,000 ml @ 999 mls/hr Q1H1M STAT IV 08/04/16 11:19 08/04/16 12:19 DC 08/04/16 11:51 999 MLS/HR Sodium Chloride 1,000 ml @ 200 mls/hr Q5H STAT IV 08/04/16 11:19 08/04/16 15:56 DC 08/04/16 11:51 200 MLS/HR Insulin Human Regular (novoLIN-R U-100 PER UNIT) 10 units NOW STAT IV 08/04/16 13:04 08/04/16 13:05 DC 08/04/16 13:30 10 UNITS Sodium Chloride 1,000 ml @ 999 mls/hr Q1H1M STAT IV 08/04/16 13:24 08/04/16 14:24 DC 08/04/16 13:33 999 MLS/HR Insulin Human Regular (novoLIN-R U-100 PER UNIT) 10 units NOW STAT IV 08/04/16 14:06 08/04/16 14:07 DC 08/04/16 14:09 10 UNITS ECG Indication: other (hyperglycemia) Rate (beats per minute): 71 Rhythm: normal sinus Findings: no acute ischemic change, no ectopy ED Course 1117: The patient was evaluated in room C03. A complete history and physical exam was performed. 1119: Sodium chloride 1000 ml @ 200 mls/hr IV, Sodium Chloride 1000 ml @ 999 mls /hr IV, Zofran Injection 4 mg IV. 1304: Insulin Human Regular 10 units IV. 1324: Sodium Chloride 1000 ml @ 999 mls/hr IV. 1406: Insulin Human Regular 10 units IV. 1502: Blood Pressure Screening: Patient was found to have an elevated blood pressure and was referred to their primary doctor for recheck and further treatment. Medication Reconciliation: I attest that I have personally reviewed the patient' s current medication list. 1508: I discussed the patient's case with the correctional casework specialist. The correctional casework specialist provided information regarding an adequate diabetic diet to the patient. 1540: I reevaluated the patient. I discussed results and discharge instructions : He verbalized understanding and agreement. The patient is ready for discharge. Medical Decision Differential diagnoses considered include: dehydration, hyperglycemia , renal failure, electrolyte imbalance, infection, urinary tract infection, stress/ anxiety. There is no leukocytosis or concerning anemia. Renal panel testing shows hyperglycemia with a blood sugar over 400. No kidney failure. There was no hepatitis. The patient appears to be in a euthyroid state. EKG shows a sinus rhythm, no acute ischemia. Cardiac enzyme testing times one is not consistent with acute cardiac injury. Urinalysis does not show infection, glucose was seen in the urine. The patient received IV saline. He was given IV insulin 2 doses. His blood sugar is now in the 200s, he feels improved. The [facility] He was given information on how to follow a more consistent diabetic diet. He was encouraged to stay well hydrated and to return here for fever or worsening symptoms. Impression Primary Impression: Hyperglycemia Additional Impression: Dehydration Scribe Attestation The scribe's documentation has been prepared under my direction and personally reviewed by me in its entirety. I confirm that the note above accurately reflects all work, treatment, procedures, and medical decision making performed by me. Departure Information Dispostion Home / Self-Care Referrals Mag Dewey M.D. (PCP) Forms HOME CARE DOCUMENTATION FORM, IMPORTANT VISIT INFORMATION, WORK / SCHOOL INSTRUCTIONS Patient Instructions My [facility] Spare to Share Additional Instructions follow the diabetic diet return for high sugar values as we discussed [facility] this [facility] for a recheck return if worsening stay well hydrated Problem Qualifiers
== END 2016-08-04 15:44 | disposition home or self-care (01) ==
LOC: C.EDB 11:03 → C.EDC 15:44
DX: R73.9 Hyperglycemia, unspecified (principal); E86.0 Dehydration; I48.91 Unspecified atrial fibrillation; E11.9 Type 2 diabetes mellitus without complications; Z87.891 Personal history of nicotine dependence

== ENCOUNTER 2021-06-12 20:01 | Inpatient (IN) ==
[2021-06-12 21:09] LABS: Hematocrit (blood only) 40.8 % (42-52); Hemoglobin 13.7 g/dL (14.0-18.0); Mean Corpuscular Hgb Conc 33.6 g/dL (32-36); Mean Corpuscular Volume 86.4 fL (80-100); Mean Platelet Volume 10.3 fL (7.4-10.4); Platelet Count 323 K/uL (130-400); RDW Coefficient of Variation 13.9 % (11.5-14.5); Red Blood Count 4.72 M/uL (4.7-6.1); White Blood Count 14.91 K/uL (4.8-10.8)
[2021-06-12 21:27] LABS: ALC (manual) 6.68 K/uL (1.2-3.4); ANC (manual) 7.57 K/uL (1.4-6.5); Eosinophils # (manual) 0.27 K/uL (0-0.5); Eosinophils % (manual) 1.8 %; Lymphocytes # (manual) 3.01 K/uL (1.2-3.4); Lymphocytes % (manual) 20.2 %; Monocytes # (manual) 0.39 K/uL (0.11-0.59); Monocytes % (manual) 2.6 %; Neutrophils # (manual) 7.57 K/uL (1.4-6.5); Neutrophils % (manual) 50.8 %; Reactive Lymphocytes # (manual) 3.67 K/uL; Reactive Lymphocytes % (manual) 24.6 %
[2021-06-12 21:47] LABS: Albumin Globulin Ratio 1.4 (0.9-2); BUN Creatinine Ratio 16.7 (10-20); Bilirubin,Total 0.3 mg/dl (0.2-1.0); Calcium 9.2 mg/dl (8.5-10.1); Creatinine Clr Calc Pharmacy 96.1 ml/min; Est GFR (African American) 93.5 ml/min; Est GFR (Non-African American) 80.6 ml/min; Globulin 2.9 gm/dl (2.5-4.0); Total Protein 6.9 gm/dl (6.0-8.3)
[2021-06-12] MEDS ORDERED: ONDANSETRON INJ 2 MG/ML 2 ML VIAL IV STA (22:09)
--- NOTE | 2021-06-12 22:15 | Emergency Department Note ---
History of Present Illness General Chief complaint: Abdominal Pain Stated complaint: ABDOMINAL PAIN, CONSTIPATION Time Seen by Provider: 06/12/21 21:44 History of Present Illness Maximum Pain Intensity: 8 This is a 56-year-old male presenting to the emergency department for evaluation of left lower quadrant and mid lower abdominal pain for the past week. The patient states his symptoms have worsened over the past 1 to 2 days and he rates his current pain an 8/10. The patient has a history of similar abdominal pain 2 months ago where there was considerable concern for ischemic colitis. The patient was hypotensive and ultimately life flighted to [facility] for treatment. The patient states that he was admitted for a week before recovering and being discharged home. The patient has not had recent fevers or chills. No chest pain, chest tightness, shortness of breath. He does follow with Dr. Vickers of gastroenterology locally and did have endoscopies about 1 ye ar ago that were fairly normal. The patient is scheduled to follow with Dr. Vickers in 2 days locally. The patient does have past history of appendectomy. He has not taken any [id number] for his symptoms. Last bowel movement was yesterday. Home Medications Medication Instructions Recorded Confirmed Type flecainide 150 mg tablet 150 mg PO BID #180 tab 11/04/18 06/12/21 History lisinopril 40 mg tablet 40 mg PO QAM #90 tab 11/04/18 06/12/21 History metformin 1,000 mg tablet 1,000 mg PO BID #180 tab 11/04/18 06/12/21 History metoprolol tartrate 100 mg tablet 100 mg PO BID #180 tab 11/04/18 06/12/21 History finasteride 1 mg tablet 1 mg PO QAM 12/04/18 06/12/21 History magnesium 250 mg tablet 250 mg PO QAM 12/04/18 06/12/21 History tamsulosin 0.4 mg capsule 0.4 mg PO QAM 12/04/18 06/12/21 History cetirizine 10 mg tablet 10 mg PO QAM 03/16/20 06/12/21 History apixaban 5 mg tablet (Eliquis) 5 mg PO BID 06/25/20 06/12/21 History cholecalciferol (vitamin D3) 25 25 mcg PO BID 06/25/20 06/12/21 History mcg (1,000 unit) tablet omega 5-hkl-tkk-fish oil 1,000 mg 1 cap PO BID 06/25/20 06/12/21 History (120 mg-180 mg) capsule (Fish Oil) semaglutide (Ozempic) 0.25 mg SUBCUT WK 06/25/20 06/12/21 History pantoprazole 40 mg tablet,delayed 40 mg PO DAILY 30 Days #30 tab 07/03/2006/12 Rx release (Protonix) Unknown Statin 0.5 tab PO DAILY 04/20/21 06/12/21 History insulin detemir U-100 100 unit/mL 5 unit SUBCUT HS 06/12/21 06/12/21 History (3 mL) subcutaneous pen Allergies Allergy/AdvReac Type Severity Reaction Status Date / Time No Known Allergies Allergy Verified 06/12/21 21:53 Past Med/Surg History Medical History Atrial fibrillation dx 1994 > h/o cardioversion x 2; follows with [facility] Cardio/ Eliquis BPH (benign prostatic hyperplasia) Diabetic neuropathy DM type 2 (diabetes mellitus, type 2) IDDM GERD (gastroesophageal reflux disease) KAW (hard of hearing) HTN (hypertension) Hyperlipidemia Surgical History History of appendectomy History of cardioversion x 2 History of carpal tunnel release RT/LEFT History of colonoscopy History of esophagogastroduodenoscopy (EGD) History of surgery on arm LEFT ULNAR NERVE TRANSPOSITION Family History Mother Atrial fibrillation Grandfather (Maternal) Coronary heart disease Other No family history of adverse response to anesthesia No pertinent family history Social History Smoking Status: Former smoker Age Started Using Tobacco: 19; Age Quit Using Tobacco: 42; Years Smoked: 23; Number of Years Since Quit: 12; Second Hand Exposure: No; Hx Alcohol Use: Yes Alcohol type: beer Hx Substance Use: No Preferred Language: Russian Communication Ability: Effective Dock Supervisor Required: No Beliefs That Will Affect Care: None marital status: Current Living Situation: Alone Feels Safe at Home: Yes Assistive Devices: Glasses Review of Systems A total of 10 systems reviewed and were otherwise negative Physical Exam Vital Signs Vital Signs - 24 hr 06/13/21 00:00 06/13/21 01:00 06/13/21 02:00 Pulse Rate 77 76 79 Respiratory Rate 15 17 13 Blood Pressure 139/87 146/92 H 157/94 H Blood Pressure Mean 104 110 115 Pulse Oximetry 97 97 97 Oxygen Delivery Method Room Air Room Air Room Air 06/13/21 03:00 Pulse Rate 78 Respiratory Rate 20 Blood Pressure 154/90 H Blood Pressure Mean 111 Pulse Oximetry 97 Oxygen Delivery Method Room Air VITALS: Vitals are noted on the nurse's note and reviewed by myself. Vital signs stable. GENERAL: Well-developed, well-nourished, white male, who is in no acute distress and resting comfortably. Patient is cooperative with the examination. HEAD: Normocephalic atraumatic. HEART: Regular rate and rhythm without murmurs gallops or rubs. LUNGS: Clear to auscultation bilaterally without wheezes, rales or rhonchi. No retractions or accessory muscle use. ABDOMEN: Positive normal bowel sounds x 4. Soft with left lower quadrant tenderness and mild suprapubic tenderness. No CVA tenderness. No rash. MUSCULOSKELETAL: No muscle atrophy, erythema, or edema noted. Full range of motion in all extremities. No tenderness to palpation. NEURO: Patient was alert and oriented to person place and time. CN II through XII grossly intact Course Administered Medications Flecainide Acetate (Flecainide Acetate 100 Mg Tablet) 150 mg PO BID [facility] Stop: 07/13/21 08:59 Last Admin: 06/13/21 21:41 Dose: 150 mg Documented by: [id number] Admin: 06/13/21 08:43 Dose: 150 mg Documented by: [id number] Heparin Sodium (Porcine) (Heparin Sod 5,000 Unit/0.5 Ml Vial) 5,000 units SQ Q8H SAMANTHA Stop: 07/13/21 07:59 Last Admin: 06/13/21 23:33 Dose: 5,000 units Documented by: [id number] Admin: 06/13/21 17:08 Dose: 5,000 units Documented by: [id number] Admin: 06/13/21 08:43 Dose: 5,000 units Documented by: [id number] Hydromorphone HCl (Hydromorphone Inj 0.5 Mg/0.5 Ml Syr) 0.5 mg IV Q6H PRN PRN Reason: Pain Stop: 06/27/21 18:24 Last Admin: 06/13/21 23:29 Dose: 0.5 mg Documented by: [id number] Sodium Chloride (Nss 1000ml) 1,000 mls @ 80 mls/hr IV .[id number] SAMANTHA Stop: 06/14/21 17:29 Last Admin: 06/13/21 15:55 Dose: 80 mls/hr Documented by: [id number] Infusion: 06/13/21 15:55 Dose: 80 mls/hr Documented by: [id number] Admin: 06/13/21 05:30 Dose: 80 mls/hr Documented by: [id number] Piperacillin Sod/Tazobactam (Sod 3.375 gm/ Dextrose) 115 mls @ 28.75 mls/hr IV Q8H SAMANTHA; Protocol Stop: 06/23/21 09:59 Last Infusion: 06/13/21 21:27 Dose: 0 mls/hr Documented by: [id number] Admin: 06/13/21 17:14 Dose: 28.8 mls/hr Documented by: [id number] Infusion: 06/13/21 13:03 Dose: 0 mls/hr Documented by: [id number] Admin: 06/13/21 09:00 Dose: 28.8 mls/hr Documented by: [id number] Pantoprazole Sodium 40 mg/ (Syringe) 10 mls @ 5 mls/min IV BID SAMANTHA Stop: 07/13/21 09:29 Last Admin: 06/13/21 21:39 Dose: 5 mls/min Documented by: [id number] Admin: 06/13/21 10:39 Dose: 5 mls/min Documented by: [id number] Insulin Glargine (Insulin Glargine Solostar 100 Units/Ml 3 Ml Pen) 5 units SC BID SAMANTHA Stop: 07/13/21 08:59 Last Admin: 06/13/21 21:40 Dose: 3 units Documented by: [id number] Cosigned by: [id number] Admin: 06/13/21 08:43 Dose: 3 units Documented by: [id number] Cosigned by: [id number] Lisinopril (Lisinopril 40 Mg Tab) 40 mg PO QAM SAMANTHA Stop: 07/13/21 08:59 Last Admin: 06/13/21 08:42 Dose: 40 mg Documented by: [id number] Metoprolol Tartrate (Metoprolol Tartrate 100 Mg Tab) 100 mg PO BID [facility] Stop: 07/13/21 08:59 Last Admin: 06/13/21 21:42 Dose: 100 mg Documented by: [id number] Admin: 06/13/21 08:42 Dose: 100 mg Documented by: [id number] Morphine Sulfate (Morphine Sulfate 2 Mg/Ml Carp) 2 mg IV Q3H PRN PRN Reason: severe pain 7-10 Stop: 06/27/21 06:09 Last Admin: 06/13/21 11:46 Dose: 2 mg Documented by: [id number] Pantoprazole Sodium (Pantoprazole 40 Mg Tab) 40 mg PO DAILY [facility] Stop: 07/13/21 08:59 Last Admin: 06/13/21 08:42 Dose: 40 mg Documented by: [id number] Tamsulosin HCl (Tamsulosin Hcl 0.4 Mg Cap) 0.4 mg PO QAM [facility] Stop: 07/13/21 08:59 Last Admin: 06/13/21 08:42 Dose: 0.4 mg Documented by: [id number] Discontinued Medications Cetirizine HCl (Cetirizine Hcl 10 Mg Tablet) 10 mg PO NOW ONE Stop: 06/13/21 15:48 Last Admin: 06/13/21 16:31 Dose: 10 mg Documented by: [id number] Diphenhydramine HCl (Diphenhydramine 50 Mg/Ml Vial) 25 mg IV NOW STA Stop: 06/13/21 13:52 Last Admin: 06/13/21 13:59 Dose: 25 mg Documented by: [id number] Diphenhydramine HCl (Diphenhydramine 50 Mg/Ml Vial) 50 mg IV NOW STA Stop: 06/13/21 17:37 Last Admin: 06/13/21 17:42 Dose: 50 mg Documented by: [id number] Hydromorphone HCl (Hydromorphone Inj 0.5 Mg/0.5 Ml Syr) 0.5 mg IV NOW STA Stop: 06/13/21 13:38 Last Admin: 06/13/21 13:59 Dose: 0.5 mg Documented by: [id number] Piperacillin Sod/Tazobactam (Sod 3.375 gm/ Dextrose) 100 ml in 115 mls @ 230 mls/hr IV NOW STA Stop: 06/13/21 04:26 Last Infusion: 06/13/21 05:02 Dose: 0 mls/hr Documented by: [id number] Admin: 06/13/21 04:32 Dose: 230 mls/hr Documented by: [id number] Magnesium Sulfate/Dextrose (Magnesium Sulfate / D5w) 1 gm in 100 mls @ 50 mls/hr IV Q2H SAMANTHA Stop: 06/13/21 12:57 Last Infusion: 06/13/21 14:28 Dose: 0 mls/hr Documented by: [id number] Admin: 06/13/21 12:28 Dose: 50 mls/hr Documented by: [id number] Infusion: 06/13/21 11:34 Dose: 0 mls/hr Documented by: [id number] Admin: 06/13/21 09:34 Dose: 50 mls/hr Documented by: [id number] Insulin Aspart (Insulin Aspart Per Unit) 0 units SC ACHS SAMANTHA Stop: 07/13/21 07:29 Last Admin: 06/13/21 21:40 Dose: 2 units Documented by: [id number] Cosigned by: [id number] Admin: 06/13/21 17:24 Dose: 2 units Documented by: [id number] Cosigned by: [id number] Admin: 06/13/21 11:55 Dose: Not Given Documented by: [id number] Admin: 06/13/21 08:35 Dose: Not Given Documented by: [id number] Morphine Sulfate (Morphine Sulfate 4 Mg/Ml 1 Ml Carp\Vial) 4 mg IV Q30M PRN PRN Reason: Pain Stop: 06/26/21 22:08 Last Admin: 06/13/21 02:20 Dose: 4 mg Documented by: [id number] Admin: 06/12/21 22:36 Dose: 4 mg Documented by: [id number] Morphine Sulfate (Morphine Sulfate 2 Mg/Ml Carp) 2 mg IV Q3H PRN PRN Reason: Severe Pain Stop: 06/26/21 22:08 Last Admin: 06/13/21 06:06 Dose: 2 mg Documented by: [id number] Ondansetron HCl (Ondansetron Inj 2 Mg/Ml 2 Ml Vial) 4 mg IV NOW STA Stop: 06/12/21 22:10 Last Admin: 06/12/21 22:36 Dose: 4 mg Documented by: [id number] Polyethylene Glycol/Electrolytes (Lavage Solution 4000ml) 1 dose PO NOW STA Stop: 06/13/21 16:23 Last Admin: 06/13/21 17:39 Dose: 1 dose Documented by: [id number] Medical Decision Making Differential Diagnosis Differential diagnosis: Etiologies such as biliary colic, cholecystitis, hepatitis, pancreatitis, cardiac disease, pancreatitis, gastritis, peptic ulcer disease, appendicitis, cystitis, diverticulitis, mesenteric ischemia, inflammatory bowel disease, ileus, bowel obstruction, testicular/adnexal torsion, aortic pathology, shingles, as well as others were considered Laboratory Data Result diagrams: 06/13/21 05:08 06/13/21 05:08 Lab Results 06/12/21 06/12/21 06/12/21 Range/Units 20:56 20:56 20:56 WBC 14.91 H (4.8-10.8) K/uL RBC 4.72 (4.7-6.1) M/uL Hgb 13.7 L (14.0-18.0) g/dL Hct 40.8 L (42-52) % MCV 86.4 (80-100) fL MCH 29.0 (25-34) pg MCHC 33.6 (32-36) g/dL RDW Std Deviation 44.0 (36.4-46.3) fL RDW Coeff of Yahaira 13.9 (11.5-14.5) % Plt Count 323 (130-400) K/uL MPV 10.3 (7.4-10.4) fL Neutrophils % (Manual) 50.8 % Lymphocytes % (Manual) 20.2 % Reactive Lymphs % (Man) 24.6 % Monocytes % (Manual) 2.6 % Eosinophils % (Manual) 1.8 % Neutrophils # (Manual) 7.57 H (1.4-6.5) K/uL Total Absolute Neuts 7.57 H (1.4-6.5) K/uL Lymphocytes # (Manual) 3.01 (1.2-3.4) K/uL Reactive Lymphs # 3.67 K/uL Total Abs Lymphocytes 6.68 H (1.2-3.4) K/uL Monocytes # (Manual) 0.39 (0.11-0.59) K/uL Eosinophils # (Manual) 0.27 (0-0.5) K/uL Blood Smear Review ESR 25 H (0-20) mm/hr Sodium 137 (136-145) mmol/L Potassium 4.0 (3.5-5.1) mmol/L Chloride 104 (98-107) mmol/L Carbon Dioxide 23 (21-32) mmol/L Anion Gap 10 (3-11) BUN 17 (6-23) mg/dl Creatinine 1.02 (0.6-1.4) mg/dl Est Cr Clr Drug Dosing 96.1 ml/min Est GFR ( Amer) 93.5 ml/min Est GFR (Non-Af Amer) 80.6 ml/min BUN/Creatinine Ratio 16.7 (10-20) Glucose 179 H (70-99(Fasting)) mg/dl Lactate (0.4-2.0) mmol/L Calcium 9.2 (8.5-10.1) mg/dl Total Bilirubin 0.3 (0.2-1.0) mg/dl AST 12 L (13-39) U/L ALT 15 (7-52) U/L Alkaline Phosphatase 23 L (34-104) U/L C-Reactive Protein (0-0.5) mg/dl Total Protein 6.9 (6.0-8.3) gm/dl Albumin 4.0 (3.4-5.0) gm/dl Globulin 2.9 (2.5-4.0) gm/dl Albumin/Globulin Ratio 1.4 (0.9-2) Lipase 23 (11-82) U/L 06/12/21 06/12/21 Range/Units 20:56 22:30 WBC (4.8-10.8) K/uL RBC (4.7-6.1) M/uL Hgb (14.0-18.0) g/dL Hct (42-52) % MCV (80-100) fL MCH (25-34) pg MCHC (32-36) g/dL RDW Std Deviation (36.4-46.3) fL RDW Coeff of Yahaira (11.5-14.5) % Plt Count (130-400) K/uL MPV (7.4-10.4) fL Neutrophils % (Manual) % Lymphocytes % (Manual) % Reactive Lymphs % (Man) % Monocytes % (Manual) % Eosinophils % (Manual) % Neutrophils # (Manual) (1.4-6.5) K/uL Total Absolute Neuts (1.4-6.5) K/uL Lymphocytes # (Manual) (1.2-3.4) K/uL Reactive Lymphs # K/uL Total Abs Lymphocytes (1.2-3.4) K/uL Monocytes # (Manual) (0.11-0.59) K/uL Eosinophils # (Manual) (0-0.5) K/uL Blood Smear Review ESR (0-20) mm/hr Sodium (136-145) mmol/L Potassium (3.5-5.1) mmol/L Chloride (98-107) mmol/L Carbon Dioxide (21-32) mmol/L Anion Gap (3-11) BUN (6-23) mg/dl Creatinine (0.6-1.4) mg/dl Est Cr Clr Drug Dosing ml/min Est GFR ( Amer) ml/min Est GFR (Non-Af Amer) ml/min BUN/Creatinine Ratio (10-20) Glucose (70-99(Fasting)) mg/dl Lactate 2.0 (0.4-2.0) mmol/L Calcium (8.5-10.1) mg/dl Total Bilirubin (0.2-1.0) mg/dl AST (13-39) U/L ALT (7-52) U/L Alkaline Phosphatase (34-104) U/L C-Reactive Protein 1.08 H (0-0.5) mg/dl Total Protein (6.0-8.3) gm/dl Albumin (3.4-5.0) gm/dl Globulin (2.5-4.0) gm/dl Albumin/Globulin Ratio (0.9-2) Lipase (11-82) U/L Imaging Data Radiologist's Impression: Abdomen/Pelvis CT 06/12/21 22:[address] WITHOUT CONTRAST CT DOSE: 891.89 mGy.cm HISTORY: Acute left lower quadrant abdominal pain LLQ abd pain. hx colitis. No apdx. TECHNIQUE: Multiaxial CT images of the abdomen and pelvis were performed without contrast. A dose lowering technique was utilized adhering to the principles of ALARA. COMPARISON STUDY: CTA abdomen and pelvis 04/20/2021 FINDINGS: The imaged inferior cardiac chambers are unremarkable. Mild subsegmental bibasilar atelectasis. 5 mm solid nodule of the right middle lobe on image 8 of series 3 is unchanged. There is no pneumatosis or pneumoperitoneum. The unenhanced spleen, pancreas, and adrenal glands are unremarkable. Cholelithiasis. Focus of air within the gallbladder lumen redemonstrated. Unremarkable liver. Nonspecific bilateral perinephric inflammation. No hydronephrosis. Mild nonspecific urinary bladder wall thickening. Small fat filled inguinal hernias. No abdominal aortic aneurysm or lymphadenopathy. Mild nonspecific distal es ophageal wall thickening. Extensive fecal retention. There is distention of the large bowel measuring up to 7.3 cm. Pill fragment within the dependent cecum. Appendectomy. There is diffuse colonic wall thickening with pericolonic inflammation. There is a caliber change within the descending colon on image 213 series 3 which is new from the prior study. Unremarkable soft tissues. Degenerative changes of the spine, pelvis and hips. IMPRESSION: 1. Constipation with wall thickening of the colon and pericolonic stranding, most pronounced in the ascending, transverse and descending segments. Distention of the colon measures up to 7 cm. Findings should be correlated clinically to exclude developing toxic megacolon. 2. Caliber change of the mid descending colon is new from the prior study. Underlying mucosal lesion is considered unlikely, however could be correlated with colonoscopy. 3. No bowel obstruction. 4. Mild nonspecific distal esophageal wall thickening. 5. Cholelithiasis with gallbladder distention and nonspecific intraluminal focus of air redemonstrated. Findings could be correlated with ultrasound to exclude acute cholecystitis. ACT 112: Negative or not required by law. The above report was generated using voice recognition software. It may contain grammatical, syntax or spelling errors. Electronically signed by: Adrian Lopez M.D. 06/13/2021 9:15 AM MDM Narrative Physical exam and history were performed. Nursing notes, EMR, and Medication List were personally reviewed. Patient appears to have abdominal pain bringing him to the ER. He does have a recent complicated history including similar symptoms about 2 months ago requiring him to be life flighted to [facility]. IV access was established and labs were obtained. He was hydrated and medicated as above. The patient's blood work is as above and was reviewed. He does have an elevated white blood cell count of nearly 15,000. He does not have significant anemia, bandemia, or gross electrolyte imbalance. Lipase and transaminases are not diagnostic. CT scan of the abdomen and pelvis was performed and also reviewed by myself and radiology. This is concerning for a large amount of stool, possible developing toxic megacolon, as well as findings around the gallbladder. Overall the patient does not seem well for discharge home. I did reach out to the surgical team, who recommended medical admission after evaluating the patient at bedside. Please see the hospitalist dictation for further patient course, plan, disposition. The chart was completed utilizing [employer] Speech Voice Recognition Software. Grammatical errors, random word insertions, pronoun errors, and incomplete sentences are an occasional consequence of this system due to software limitations, ambient noise, and hardware issues. Any formal questions or concerns about the content, text, or information contained within the body of this dictation should be directly addressed to the provider for clarification. . Impression & Plan Abnormal CT scan, gallbladder, Constipation Discharge Plan Visit Data Chief Complaint: Abdominal Pain Stated Complaint: ABDOMINAL PAIN, CONSTIPATION ED Provider: Manny Castañeda ED Midlevel Provider: Edison Brice Discharge Problem: Abnormal CT scan, gallbladder, Constipation Patient Disposition: Admitted As Inpatient Discharge Instructions Interventions: ED Discharge Assessment Last Done: 06/13/21 06:17
[2021-06-12] MEDS: MoRPHine SULFATE 4 MG/ML 1 ML CARP\\VIAL IV PRN (22:36)
--- NOTE | 2021-06-13 01:34 | Surgery Consultation ---
Date of Consultation June 13, 2021 Assessment & Plan (1) Abdominal pain of unknown cause: Due to the patient's clinical presentation and imaging findings the treating clinician in the emergency department has elected to have him admitted to the hospital service. At the present time the patient does not have a surgical abdomen. It was noted in March 2020 the patient should have a repeat colonoscopy so he is due for this study to be repeated. This would also be beneficial due to the concern for potential mechanical obstruction noted in his colon on today's CT scan. Would recommend keeping the patient n.p.o. until seen by GI and will await their recommendations about consideration for colonoscopy. Additional recommendations from the surgical service will be dependent on further recommendations from gastroenterology. Supervising Physician Co-Signing Physician Notes Dr. Lowerypatient with a dilated a sending and transverse colon full of stool with significant stool distally in his sigmoid colon and rectum It appears the patient has a problem with chronic constipation at least using Ex-Lax The patient does not require urgent or emergent surgery I believe we would benefit from a good bowel prep and colonoscopy Depending on the findings he may improve with a strict bowel regime to avoid constipation Although it may be that he will require a bowel resection at some point History of Present Illness Reason for Consultation: [place] pain, concern for colon obstruction History of Present Illness This is a 56-year-old male who presented to [facility] secondary to abdominal pain. Patient noted that he presented to [facility] emergency department secondary to acute onset abdominal pain in March of this year. On this presentation the patient was noted to be hypotensive and he was given Solu-Medrol, Benadryl, epinephrine, and Zosyn due to concern for sepsis. He underwent a CT angiogram of his abdomen that did not note any concerns for ischemic bowel he was noted to have a dilated and fluid- filled colon with fecal impaction. A general surgery consultation was obtained and the patient was seen by the [facility] general surgery service and at that time it was recommended that patient be transferred to a tertiary care center d ue to concern for possible ischemic bowel. The patient was transported to [facility] where patient says he was treated for colitis and did not undergo any surgery. To the best of his knowledge he was treated with antibiotics and IV fluid for hydration. Patient represented to [facility] emergency department today secondary to abdominal pain. Patient says that he has had ongoing abdominal pain and on and off fashion ever since his discharge from [facility] and he has never "felt quite right." Because his pain was somewhat more severe today he presented to the emergency department. He denies any fevers, shakes, chills. He denies any nausea or vomiting. He does note that he has been having some issues with constipation but he does report having a normal bowel movement yesterday. He denies any melena or hematochezia. He denies any weight loss or family history of colon cancer. He notes that his appetite has been normal. He does report prior abdominal surgery in the form of an appendectomy in the . Today in the emergency department the patient had labs and imaging which I independently reviewed. CBC revealed white blood cell count was 14.9. Hemoglobin hematocrit were 13.7 and 40.8. Platelet count was noted to be normal. Chemistry profile showed sodium, potassium, BUN, and creatinine were all normal. Lactic acid level was not elevated. There is no elevation of patient's bilirubin, transaminases, or alkaline phosphatase. Lipase was not also not elevated. A CT scan of the abdomen and pelvis was performed today in the emergency department that showed a markedly distended a sending and transverse colon. The colon wall was noted to be thickened in the area of the transverse colon. It was a transition point noted in the descending colon and a mechanical obstruction secondary to a neoplasm could not be excluded. Patient was noted to have cholelithiasis on the study as well. Prior records were reviewed and the patient did have his most recent colonoscopy on March 29, 2020. This study was noted to have a poor prep and there was stool noted in the entire examined colon. Examination was noted to be otherwise normal and there was no comment of any polyps or masses. Is recommended the patient have a repeat colonoscopy in approximately 1 year. It is also noteworthy mention that the patient did have an EGD on July 03, 2020. Study revealed the patient had grade a mucosal breaks consistent with esophagitis. Patient was also noted to have large amount of food residue in the stomach. The duodenal bulb and second portion of the duodenum were noted to be normal on the study. At the time of my interview the patient was quite comfortable resting in bed. He was in no distress and his pain was currently well controlled. Allergies Allergy/AdvReac Type Severity Reaction Status Date / Time No Known Allergies Allergy Verified 06/12/21 21:53 Home Medications Medication Instructions Recorded Confirmed Type flecainide 150 mg tablet 150 mg PO BID #180 tab 11/04/18 06/12/21 History lisinopril 40 mg tablet 40 mg PO QAM #90 tab 11/04/18 06/12/21 History metformin 1,000 mg tablet 1,000 mg PO BID #180 tab 11/04/18 06/12/21 History metoprolol tartrate 100 mg tablet 100 mg PO BID #180 tab 11/04/18 06/12/21 History finasteride 1 mg tablet 1 mg PO QAM 12/04/18 06/12/21 History magnesium 250 mg tablet 250 mg PO QAM 12/04/18 06/12/21 History tamsulosin 0.4 mg capsule 0.4 mg PO QAM 12/04/18 06/12/21 History cetirizine 10 mg tablet 10 mg PO QAM 03/16/20 06/12/21 History apixaban 5 mg tablet (Eliquis) 5 mg PO BID 06/25/20 06/12/21 History cholecalciferol (vitamin D3) 25 25 mcg PO BID 06/25/20 06/12/21 History mcg (1,000 unit) tablet omega 4-kmy-zdx-fish oil 1,000 mg 1 cap PO BID 06/25/20 06/12/21 History (120 mg-180 mg) capsule (Fish Oil) semaglutide (Ozempic) 0.25 mg SUBCUT WK 06/25/20 06/12/21 History pantoprazole 40 mg tablet,delayed 40 mg PO DAILY 30 Days #30 tab 07/03/20 06/12/21 Rx release (Protonix) Unknown Statin 0.5 tab PO DAILY 04/20/21 06/12/21 History insulin detemir U-100 100 unit/mL 5 unit SUBCUT HS 06/12/21 06/12/21 History (3 mL) subcutaneous pen Patient History Medical History (Updated 06/13/21 @ 05:17 by Michael Cornell MD) Atrial fibrillation dx 1994 > h/o cardioversion x 2; follows with [facility] Cardio/ Eliquis BPH (benign prostatic hyperplasia) Diabetic neuropathy DM type 2 (diabetes mellitus, type 2) IDDM GERD (gastroesophageal reflux disease) [place] (hard of hearing) HTN (hypertension) Hyperlipidemia Surgical History History of appendectomy History of cardioversion x 2 History of carpal tunnel release RT/LEFT History of colonoscopy History of esophagogastroduodenoscopy (EGD) History of surgery on arm LEFT ULNAR NERVE TRANSPOSITION Family History Mother Atrial fibrillation Grandfather (Maternal) Coronary heart disease Other No family history of adverse response to anesthesia No pertinent family history Social History Smoking Status: Former smoker Age Started Using Tobacco: 19; Age Quit Using Tobacco: 42; Years Smoked: 23; Number of Years Since Quit: 12; Second Hand Exposure: No; Hx Alcohol Use: Yes Alcohol type: beer Preferred Language: Namibian Communication Ability: Effective Watch Dial Maker Required: No Beliefs That Will Affect Care: None marital status: Current Living Situation: Family Feels Safe at Home: Yes Assistive Devices: Glasses Review of Systems Constitutional: no fever, no chills and no weight loss Eyes: + corrective lenses Ear, Nose, Mouth, Throat: no ear pain Respiratory: no cough and no dyspnea Cardiovascular: no chest pain Gastrointestinal: as per Subjective / HPI, + abdominal pain and + constipation; no nausea, no vomiting, no diarrhea/loose stools and no blood in stools Genitourinary: no dysuria Musculoskeletal: no back pain Integumentary: no rash Neurologic: no localized weakness Physical Exam Constitutional: well developed and well nourished; no acute distress Eyes: Wears glasses ENMT: Ears: no hearing impairment and no external ear abnormality Mouth: no oropharynx abnormality Neck: trachea midline Respiratory: normal respiratory effort, lungs clear to auscultation Cardiovascular: Rate/Rhythm: regular rate and regular rhythm Gastrointestinal (Abdomen): Patient's abdomen is soft and nondistended. There is no rebound tenderness or guarding. The patient did have slight pain with palpation in the left lower quadrant and suprapubic regions Musculoskeletal: No calf tenderness Skin: no rashes Neurologic: moves all extremities Psychiatric: A+Ox3, euthymic affect Results & Data ([facility]) Vital Signs (Past 12 Hours) Vital Signs Temp Pulse Resp BP Pulse Ox 06/12/21 23:30 79 18 132/82 95 06/12/21 22:00 80 21 152/82 H 97 06/12/21 20:02 36.5 C 81 16 126/72 98 PG Care Time/CCT Total # of Minutes Spent Total Time Spent with Patient: Total time spent is greater than 50% in coordination of care (as documented) at patient's floor/unit and/or counseling patient: Coding Level of Care Code 76437 Inpt Consult Level 5 Diagnoses Abdominal pain of unknown cause R10.9
--- NOTE | 2021-06-13 02:06 | History & Physical Report ---
Date of Service June 13, 2021 Assessment & Plan (1) Large bowel obstruction: Plan: 56 year old male with IDDM, paroxysmal afib on Eliquis, HTN, HLD, GERD, gastroparesis who presents w/ 5 days of lower abdominal pain secondary to possible large bowel obstruction as suggested by transition point at the descending colon. He does have large stool burden per my read and may benefit from disimpaction. He was admitted to [facility] on 04/20/21 w/ transfer to [facility] for possible ischemic bowel and there was treated for septic shock, DKA, and fecal disimpaction and ultimately thought not to have had ischemic bowel. Patient is stable. - gen surg assessed in ED: not surgical abdomen - GI consulted - discuss w/ team whether aggressive bowel regimen + digital disimpaction would be appropriate vs risk of perf in setting of LBO and borderline lactate w/ leuko cytosis. - last screening colonoscopy 03/29/20 Dr. Vickers: Poor prep. Stool in entire colon. Exam otherwise normal. Repeat in 1 year for screening purposes with an extended prep. - lactate 2.0, repeat ordered. crp 1.08 - empiric Zosyn for intra-abdominal coverage given septic course during prior admission - NPO, allowing meds - NSS 80/hr x 1 bag - prn IV tylenol and IV morphine (2mg q3h prn) ordered - per CT imaging and prior colonoscopy, lower suspicion for renal pathology or diverticular disease. Patient is s/p open appendectomy in the 90s; increaed risk of adhesions. statrad CT ABDOMEN & PELVIS Without Contrast: Markedly distended ascending and transverse colon with thickening of the colon wall of the transverse colon. This thickening is nonspecific and may be infectious or inflammatory. There is a transition point of the descending colon, cannot exclude mechanical obstruction secondary to neoplasm. Correlation with colonoscopy is recommended. Cholelithiasis. There is a small foci of gas in the gallbladder. Consider further evaluation with dedicated gallbladder ultrasound. The solid organs are within normal limits. No fracture. (2) DM type 2 (diabetes mellitus, type 2): Plan: - basal+SSI. home PO regimen held (3) Paroxysmal atrial fibrillation: Plan: - continue home metoprolol, flecainide - hold home Eliquis in even may need colonoscopy. last dose was AM of 06/12/21 (4) Abnormal CT scan, gallbladder: Plan: - gallbladder air focus on CT abd/pelv; was also present on 04/20/21 CT. No RUQ ttp on exam. (5) Hypertension, essential: Plan: - continue home regimen (6) GERD (gastroesophageal reflux disease): Plan: - continue home omeprazole (7) Hyperlipidemia: Plan: - unknown home statin, currently held (8) Gastroparesis: Plan: - 2/2 DM. less likely contributory to LBO (9) BPH (benign prostatic hyperplasia): Plan: - continue home Flomax Plan: FEN/GI: NPO. 80mL/hr NSS x 1 bag ppx: heparin sq. Home Eliquis held because of possible colonoscopy. Low chadsvasc. code: full dispomed tele History of Present Illness Chief Complaint: lower abdominal pain Primary Care Provider: Jaime Lopez, FOOD SAFETY SPECIALIST-C 56 year old male with IDDM, parox afib on eliquis, HTN, HLD, GERD, gastroparesis and recent 04[place]20[place]04[place] [place] similar symptoms who presents w/ 4-5 days of worsening lower abd pain near midline. No radiation to back. 10/10 at worst. Currently 2-3 after morphine. Bowel patterns have been on and off in past month. He has had decreased flatus. He has only had small BMs. His abd pain is a cramping pain, intermittent. It is better w/ rest and not affected by eating. Mild nausea, but no vomiting. Denies bloody or black stools. Denies fhx colon cancer. No chest pain, sob, fever, chills, or urinary symptoms. He has had fatigue since his last hospitalization. Follows [facility]. Hx of appendectomy in 1992. He has not been using a bowel regimen regularly. Denies VTE or OK or stroke. He was seen at [facility] on 04/20/21 and transferred [place] [facility] [place] of [place] [facility] [place] had lactic acidosis and required pressors. He was treated for DKA. He was fecal disimpacted in the ED. He then had colitis on imaging, so was treated w/ IV abx. He improved after 1 week on medical treatment and was discharged home. ED course: Morphine, zofran. CT abd/pelv statrad excerpt: "Markedly distended ascending and transverse colon with thickening of the colon wall of the transverse colon. This thickening is nonspecific and may be infectious or inflammatory. There is a transition point of the descending colon, cannot exclude mechanical obstruction secondary to neoplasm." Per gen surg eval, not acute abdomen. Allergies Allergy/AdvReac Type Severity Reaction Status Date / Time No Known Allergies Allergy Verified 06/12/21 21:53 Home Medications Medication Instructions Recorded Confirmed Type flecainide 150 mg tablet 150 mg PO BID #180 tab 11/04/18 06/12/21 History lisinopril 40 mg tablet 40 mg PO QAM #90 tab 11/04/18 06/12/21 History metformin 1,000 mg tablet 1,000 mg PO BID #180 tab 11/04/18 06/12/21 History metoprolol tartrate 100 mg tablet 100 mg PO BID #180 tab 11/04/18 06/12/21 History finasteride 1 mg tablet 1 mg PO QAM 12/04/18 06/12/21 History magnesium 250 mg tablet 250 mg PO QAM 12/04/18 06/12/21 History tamsulosin 0.4 mg capsule 0.4 mg PO QAM 12/04/18 06/12/21 History cetirizine 10 mg tablet 10 mg PO QAM 03/16/20 06/12/21 History apixaban 5 mg tablet (Eliquis) 5 mg PO BID 06/25/20 06/12/21 History cholecalciferol (vitamin D3) 25 25 mcg PO BID 06/25/20 06/12/21 History mcg (1,000 unit) tablet omega 6-kxu-vqj-fish oil 1,000 mg 1 cap PO BID 06/25/20 06/12/21 History (120 mg-180 mg) capsule (Fish Oil) semaglutide (Ozempic) 0.25 mg SUBCUT WK 06/25/20 06/12/21 History pantoprazole 40 mg tablet,delayed 40 mg PO DAILY 30 Days #30 tab 07/03/20 06/12/21 Rx release (Protonix) Unknown Statin 0.5 tab PO DAILY 04/20/21 06/12/21 History insulin detemir U-100 100 unit/mL 5 unit SUBCUT HS 06/12/21 06/12/21 History (3 mL) subcutaneous pen Past Med/Surg History Medical History (Updated 06/13/21 @ 05:17 by Michael Cornell MD) Atrial fibrillation dx 1994 > h/o cardioversion x 2; follows with [facility] Cardio/ Eliquis BPH (benign prostatic hyperplasia) Diabetic neuropathy DM type 2 (diabetes mellitus, type 2) IDDM GERD (gastroesophageal reflux disease) [place] (hard of hearing) HTN (hypertension) Hyperlipidemia Surgical History History of appendectomy History of cardioversion x 2 History of carpal tunnel release RT/LEFT History of colonoscopy History of esophagogastroduodenoscopy (EGD) History of surgery on arm LEFT ULNAR NERVE TRANSPOSITION Family History Mother Atrial fibrillation Grandfather (Maternal) Coronary heart disease Other No family history of adverse response to anesthesia No pertinent family history Social History Smoking Status: Former smoker Age Started Using Tobacco: 19; Age Quit Using Tobacco: 42; Years Smoked: 23; Number of Years Since Quit: 12; Second Hand Exposure: No; Hx Alcohol Use: Yes Alcohol type: beer Preferred Language: Gibraltarian Communication Ability: Effective Cook Apprentice Required: No Beliefs That Will Affect Care: None marital status: Current Living Situation: Family Feels Safe at Home: Yes Assistive Devices: Glasses Review of Systems Review of Systems: All systems reviewed & are unremarkable except as noted in HPI & below chronic mild vision issues (light sensitivity and worsened w/ neck pain flares). follows optometry. has had months of this and some neck pain. chronic neck pain mild R hand paresthesias, attributes to capral tunnel syndrome; has had bilat wrist releases Physical Exam Physical Exam: General: Grossly A&O. NAD. Cooperative. Conversational. Appears comfortable s/p IV morphine. HEENT: Atraumatic, normocephalic. EOMI Pulm: CTAB. -wheezes, -rales, -rhonchi. No respiratory distress. Cardiac: RRR, -mrg. Radial pulses intact and symmetrical. Abdominal: Lower abd ttp. No RUQ ttp. Nondistended, soft. + bowel sounds, slightly hyperactive Msk: Moving all extremities. Integ: Warm, dry, inact Neuro: Normal strength and sensation of extrem. Results & Data Results & Data ([facility]) Vital Signs (Past 12 Hours) Vital Signs Temp Pulse Resp BP Pulse Ox 06/12/21 23:30 79 18 132/82 95 06/12/21 22:00 80 21 152/82 H 97 06/12/21 20:02 36.5 C 81 16 126/72 98 Laboratory Results leukocytosis 14.91. crp 1.08. lactate 2.0 06/12/21 20:56 06/12/21 20:56 Cardiac Enzymes 06/12/21 Range/Units 20:56 AST 12 L (13-39) U/L CBC 06/12/21 Range/Units 20:56 WBC 14.91 H (4.8-10.8) K/uL RBC 4.72 (4.7-6.1) M/uL Hgb 13.7 L (14.0-18.0) g/dL Hct 40.8 L (42-52) % Plt Count 323 (130-400) K/uL Comprehensive Metabolic Panel 06/12/21 Range/Units 20:56 Sodium 137 (136-145) mmol/L Potassium 4.0 (3.5-5.1) mmol/L Chloride 104 (98-107) mmol/L Carbon Dioxide 23 (21-32) mmol/L BUN 17 (6-23) mg/dl Creatinine 1.02 (0.6-1.4) mg/dl Glucose 179 H (70-99(Fasting)) mg/dl Calcium 9.2 (8.5-10.1) mg/dl AST 12 L (13-39) U/L ALT 15 (7-52) U/L Alkaline Phosphatase 23 L (34-104) U/L Total Protein 6.9 (6.0-8.3) gm/dl Albumin 4.0 (3.4-5.0) gm/dl Intake and Output 06/12/21 06/12/21 06/13/21 14:59 22:59 06:59 Other: Weight 98.7 kg Patient Weight 06/13/21 06:59 Weight 98.7 kg Diagnostic Findings statrad Preliminary Findings Only - See Final Report For Complete Findings CT ABDOMEN & PELVIS Without Contrast: Markedly distended ascending and transverse colon with thickening of the colon wall of the transverse colon. This thickening is nonspecific and may be infectious or inflammatory. There is a transition point of the descending colon, cannot exclude mechanical obstruction secondary to neoplasm. Correlation with colonoscopy is recommended. Cholelithiasis. There is a small foci of gas in the gallbladder. Consider further evaluation with dedicated gallbladder ultrasound. The solid organs are within normal limits. No fracture. Radiologist: Mary Ann Eduardo MD Study ready at 23:56 and initial results transmitted at 00:23 ECG Additional Comments: ecg not performed Code Status & VTE Plan Code Status full VTE Prophylaxis Plan VTE Prophylaxis will be ordered: Yes Supervising Physician Co-Signing Physician Notes Patient seen and examined, chart reviewed, case discussed with Dr. Cornell and I agree with the assessment and plan as documented above. In brief, patient is a 56yo male presenting with abdominal pain x [address] suggestive of large bowel obstruction with transition point in descending colon. Exam with abdominal tenderness, no rebound/guarding or peritoneal signs +S1/S2, regular Lungs CTA Abd soft, diminished bowel sounds, tender and mildly distended Ext warm, well perfused Labs and images reviewed Assessment/Plan -Conservative management for possible LBO, ?disimpaction and bowel regimen -GI and General Surgery consultations appreciated -Empiric Zosyn -Remainder of plan as above Resident Activity Tracking Resident Involvement: Resident Care Provided Care Provided: Adult Hospital Medicine
[2021-06-13] MEDS: MoRPHine SULFATE 4 MG/ML 1 ML CARP\\VIAL IV PRN (02:20)
[2021-06-13] MEDS ORDERED: PIPERACILL/TAZOBAC CONSULT ACTIVE PRN (03:57)
[2021-06-13] MEDS ORDERED: PIPERACILLIN/TAZOBACTAM 3.375 GM in DEXTROSE 5% 100 ML/100 ML BAG IV STA (03:57)
--- NOTE | 2021-06-13 04:10 | Billing Data ---
Date of Service June 13, 2021 Coding Level of Care Code 49584 Initial Inpt Care Lvl 3
[2021-06-13] MEDS ORDERED: MoRPHine SULFATE 2 MG/ML CARP IV PRN (04:22)
[2021-06-13] MEDS ORDERED: GLUCOSE 10 TABS/TUBE PO PRN (04:53)
[2021-06-13] MEDS ORDERED: GLUCOSE 40% GEL 15 GM TUBE PO PRN (04:53)
[2021-06-13] MEDS ORDERED: DEXTROSE 50% 50 ML SYRINGE IV PRN (04:53)
[2021-06-13] MEDS ORDERED: CARBOHYDRATES FOR HYPOGLYCEMIA PO PRN (04:53)
[2021-06-13] MEDS ORDERED: GLUCAGON FOR INJ 1 MG VIAL SQ PRN (04:53)
[2021-06-13] MEDS: SODIUM CHLORIDE 0.9% 1000ML 1,000 ML IV SCH ×2 (05:30→15:55)
[2021-06-13 05:44] LABS: Mean Corpuscular Hgb Conc 33.1 g/dL (32-36); Mean Platelet Volume 10.2 fL (7.4-10.4); Platelet Count 255 K/uL (130-400)
[2021-06-13] MEDS ORDERED: ONDANSETRON INJ 2 MG/ML 2 ML VIAL IV PRN (06:10)
[2021-06-13 06:12] LABS: ALC (manual) 3.84 K/uL (1.2-3.4); ANC (manual) 6.42 K/uL (1.4-6.5); Eosinophils % (manual) 1.8 %; Hematocrit (blood only) 36.9 % (42-52); Hemoglobin 12.2 g/dL (14.0-18.0); Lymphocytes # (manual) 2.59 K/uL (1.2-3.4); Lymphocytes % (manual) 23.7 %; Mean Corpuscular Hemoglobin 28.6 pg (25-34); Mean Corpuscular Volume 86.6 fL (80-100); Monocytes # (manual) 0.48 K/uL (0.11-0.59); Monocytes % (manual) 4.4 %; Neutrophils # (manual) 6.42 K/uL (1.4-6.5); Neutrophils % (manual) 58.7 %; RDW Coefficient of Variation 14.1 % (11.5-14.5); RDW Standard Deviation 44.3 fL (36.4-46.3); Reactive Lymphocytes # (manual) 1.25 K/uL; Reactive Lymphocytes % (manual) 11.4 %; Red Blood Count 4.26 M/uL (4.7-6.1); White Blood Count 10.93 K/uL (4.8-10.8)
[2021-06-13 06:20] LABS: Albumin Globulin Ratio 1.3 (0.9-2); Albumin Level 3.6 gm/dl (3.4-5.0); BUN Creatinine Ratio 15.3 (10-20); Bilirubin,Total 0.5 mg/dl (0.2-1.0); Calcium 8.7 mg/dl (8.5-10.1); Est GFR (African American) 98.1 ml/min; Est GFR (Non-African American) 84.6 ml/min; Globulin 2.8 gm/dl (2.5-4.0); Magnesium 1.6 mg/dl (1.7-2.4); Potassium 3.9 mmol/L (3.5-5.1); Total Protein 6.4 gm/dl (6.0-8.3)
[2021-06-13] MEDS: INSULIN ASPART PER UNIT SC SCH ×4 (08:35→21:40)
[2021-06-13] MEDS: lisinopril 40 MG TAB PO SCH (08:42)
[2021-06-13] MEDS: PANTOprazole 40 MG TAB PO SCH (08:42)
[2021-06-13] MEDS: METOPROLOL TARTRATE 100 MG TAB PO SCH ×2 (08:42→21:42)
[2021-06-13] MEDS: TAMSULOSIN HCL 0.4 MG CAP PO SCH (08:42)
[2021-06-13] MEDS: HEPARIN SOD 5,000 UNIT/0.5 ML VIAL SQ SCH ×3 (08:43→23:33)
[2021-06-13] MEDS: FLECAINIDE ACETATE 100 MG TABLET PO SCH ×2 (08:43→21:41)
[2021-06-13] MEDS: INSULIN GLARGINE SOLOSTAR 100 UNITS/ML 3 ML PEN SC SCH ×2 (08:43→21:40)
[2021-06-13] MEDS ORDERED: NON-FORMULARY MEDICATION (Finasteride 1 mg Tablet) PO SCH (09:00)
[2021-06-13] MEDS: PIPERACILLIN/TAZOBACTAM 3.375 GM in DEXTROSE 5% 100 ML IV SCH ×2 (09:00→17:14)
--- NOTE | 2021-06-13 09:16 | CT Scan Report ---
ABDOMEN AND PELVIS CT WITHOUT CONTRAST CT DOSE: 891.89 mGy.cm HISTORY: Acute left lower quadrant abdominal pain LLQ abd pain. hx colitis. No apdx. TECHNIQUE: Multiaxial CT images of the abdomen and pelvis were performed without contrast. A dose lo wering technique was utilized adhering to the principles of ALARA. COMPARISON STUDY: CTA abdomen and pelvis 04/20/2021 FINDINGS: The imaged inferior cardiac chambers are unremarkable. Mild subsegmental bibasilar atelectasis. 5 mm solid nodule of the right middle lobe on image 8 of series 3 is unchanged. There is no pneumatosis or pneumoperitoneum. The unenhanced spleen, pancreas, and adrenal glands are unremarkable. Cholelithias is. Focus of air within the gallbladder lumen redemonstrated. Unremarkable liver. Nonspecific bilateral perinephric inflammation. No hydronephrosis. Mild nonspecific urinary bladder w all thickening. Small fat filled inguinal hernias. No abdominal aortic aneurysm or lymphadenopathy. M ild nonspecific distal esophageal wall thickening. Extensive fecal retention. There is distention of the large bowel measuring up to 7.3 cm. Pill fragment within the dependent cecum. Appendectomy. There is diffuse colonic wall thickening with pericolonic inflammation. There is a caliber change within t he descending colon on image 213 series 3 which is new from the prior study. Unremarkable soft tissue s. Degenerative changes of the spine, pelvis and hips. IMPRESSION: 1. Constipation with wall thickening of the colon and pericolonic stranding, most pronounced in the a scending, transverse and descending segments. Distention of the colon measures up to 7 cm. Findings s hould be correlated clinically to exclude developing toxic megacolon. 2. Caliber change of the mid descending colon is new from the prior study. Underlying mucosal lesion is considered unlikely, however could be correlated with colonoscopy. 3. No bowel obstruction. 4. Mild nonspecific distal esophageal wall thickening. 5. Cholelithiasis with gallbladder distention and nonspecific intraluminal focus of air redemonstrate d. Findings could be correlated with ultrasound to exclude acute cholecystitis. ACT 112: Negative or not required by law. The above report was generated using voice recognition software. It may contain grammatical, syntax o r spelling errors. Electronically signed by: Adrian Lopez M.D. 06/13/2021 9:15 AM
--- NOTE | 2021-06-13 09:31 | Hospitalist Progress Note ---
Date of Service June 13, 2021 Assessment & Plan (1) Large bowel obstruction: Plan: 56 year old male with IDDM, paroxysmal afib on Eliquis, HTN, HLD, GERD, gastroparesis who presents w/ 5 days of lower abdominal pain secondary to possible large bowel obstruction as suggested by transition point at the descending colon. He does have large stool burden per my read and may benefit from disimpaction. He was admitted to [facility] on 04/20/21 w/ transfer to [facility] for possible ischemic bowel and there was treated for septic shock, DKA, and fecal disimpaction and ultimately thought not to have had ischemic bowel. Patient is stable. - gen surg assessed in ED: not surgical abdomen - GI consulted - discuss w/ team whether aggressive bowel regimen + digital disimpaction would be appropriate vs risk of perf in setting of LBO and borderline lactate w/ leukocytosis. - last screening colonoscopy 03/29/20 Dr. Vickers: Poor prep. Stool in entire colon. Exam otherwise normal. Repeat in 1 year for screening purposes with an extended prep. - lactate 2.0, repeat ordered. crp 1.08 - empiric Zosyn for intra-abdominal coverage given septic course during prior admission - NPO, allowing meds - NSS 80/hr x 1 bag - prn IV tylenol and IV morphine (2mg q3h prn) ordered - per CT imaging and prior colonoscopy, lower suspicion for renal pathology or diverticular disease. Patient is s/p open appendectomy in the 90s; increaed risk of adhesions. 06/13 CTAP: * 1. Constipation with wall thickening of the colon and pericolonic stranding, most pronounced in the ascending, transverse and descending segments. Distention of the colon measures up to 7 cm. Findings should be correlated clinically to exclude developing toxic megacolon. * 2. Caliber change of the mid descending colon is new from the prior study. Underlying mucosal lesion is considered unlikely, however could be correlated with colonoscopY. * 3. No bowel obstruction. * 4. Mild nonspecific distal esophageal wall thickening. * 5. Cholelithiasis with gallbladder distention and nonspecific intraluminal focus of air re-demonstrated. Findings could be correlated with ultrasound to exclude acute cholecystitis. Will check RUQ for completeness although LFTs wnl and no RUQ pain on exam NPO remains in case of need for c-scope GI on consult, appreciate recs. Changed to Dr Vickers as that is who followed in past and recent c-scope earlier this month Holding eliquis, continues on Heparin for DVT prophylaxis, tele monitoring given hx paroxysmal afib and continue flecainide WBC trending down, continue Zosyn IVF NS@80cc/hr will increase to 100cc/hr and add K Mag 1.6 and 2gm IV replacement ordered Also check cdiff given recent abx use and possible development of toxic megacolon on CT Monitor labs/electrolyte replacement as needed (2) DM type 2 (diabetes mellitus, type 2): Plan: - basal+SSI. home PO regimen held BSGs acceptable (3) Paroxysmal atrial fibrillation: Plan: - continue home metoprolol, flecainide - hold home Eliquis in even may need colonoscopy. last dose was AM of 06/12/21 (4) Abnormal CT scan, gallbladder: Plan: - gallbladder air focus on CT abd/pelv; was also present on 04/20/21 CT. No RUQ ttp on exam but will check US for completeness (5) Hypertension, essential: Plan: continue home regimen as already got AM lisinopril but will hold this moving forward for now BP 132/86 (6) GERD (gastroesophageal reflux disease): Plan: Continue Protonix while inpatient, switched to IV BID given distal esophageal wall thickening on GI and epigastric discomfort on examination Mag replacement as above (7) Hyperlipidemia: Plan: - unknown home statin, currently held (8) Gastroparesis: Plan: - 2/2 DM. less likely contributory to LBO (9) BPH (benign prostatic hyperplasia): Plan: - continue home Flomax Plan: FEN/GI: NPO. 80mL/hr NSS x 1 bag ppx: heparin sq. Home Eliquis held because of possible colonoscopy. Monitor on telemetry Admission and Anticipated Discharge Date Admission Date: June 13, 2021 Subjective BRIDGE NOTE: ADMIT AFTER MIDNIGHT Patient seen in ER. Resting comfortably in bed. Pain currently controlled. Pain primarily to RLQ/lower abdomen. No vomiting reported. States didn't notice eating in days past made pain any worse. Had been at [place] and [place] on abx. States had been in afib at hospital but rates controlled, they hadn't been giving him his flecainide. States he felt go back in normal rhythm at home, and knows when in afib as it makes him feel like crap and has needed cardioverted twice. On eliquis typically. States had c-scope, had been doing ok, but states never felt back to usual self after discharge. Last BM small without blood possibly yesterday morning or day prior but had been taking ex-lax, approx 3-[address] Vickers and not yet seen but discussed possible need for c-scope. Review of Systems Review of Systems: All systems reviewed & are unremarkable except as noted in HPI & below Physical Exam Physical Exam: General: WD/WN male siting up in bed, NAD HEENT; head atraumatic, normocephalic, mm slightly dry, trachea midline without deviation Resp: CTAB, no w/c/r, on RA CV: RRR, no mn/r/g, calves non-tender, pulses palpable GI: +BS, hypoactive RLQ/R lower abdomen, tender to palpation, tender also to epigastric region, no rebound/rigidity Psych: AOX3, pleasant and cooperative Neuro: no focal deficit, answering questions appropriately, CN intact grossly Results & Data Results & Data ([facility]) Vital Signs (Past 12 Hours) Vital Signs Pulse Pulse Resp BP BP Pulse Ox Pulse Ox 06/13/21 08:00 70 18 132/86 99 06/13/21 07:10 96 06/13/21 07:09 70 18 132/83 96 06/13/21 06:00 70 13 140/87 96 06/13/21 05:00 74 13 126/83 93 06/13/21 04:00 77 15 132/80 95 06/13/21 03:00 78 20 154/90 H 97 06/13/21 02:00 79 13 157/94 H 97 06/13/21 01:00 76 17 146/92 H 97 06/13/21 00:00 77 15 139/87 97 06/12/21 23:30 79 18 132/82 95 06/12/21 22:00 80 21 152/82 H 97 Laboratory Results 06/13/21 06/13/21 06/13/21 Range/Units Unknown 08:23 05:08 WBC (4.8-10.8) K/uL RBC (4.7-6.1) M/uL Hgb (14.0-18.0) g/dL Hct (42-52) % MCV (80-100) fL MCH (25-34) pg MCHC (32-36) g/dL RDW Std Deviation (36.4-46.3) fL RDW Coeff of Yahaira (11.5-14.5) % Plt Count (130-400) K/uL MPV (7.4-10.4) fL Neutrophils % (Manual) % Lymphocytes % (Manual) % Reactive Lymphs % (Man) % Monocytes % (Manual) % Eosinophils % (Manual) % Neutrophils # (Manual) (1.4-6.5) K/uL Total Absolute Neuts (1.4-6.5) K/uL Lymphocytes # (Manual) (1.2-3.4) K/uL Reactive Lymphs # K/uL Total Abs Lymphocytes (1.2-3.4) K/uL Monocytes # (Manual) (0.11-0.59) K/uL Eosinophils # (Manual) (0-0.5) K/uL Blood Smear Review ESR (0-20) mm/hr Sodium (136-145) mmol/L Potassium (3.5-5.1) mmol/L Chloride (98-107) mmol/L Carbon Dioxide (21-32) mmol/L Anion Gap (3-11) BUN (6-23) mg/dl Creatinine (0.6-1.4) mg/dl Est Cr Clr Drug Dosing ml/min Est GFR ( Amer) ml/min Est GFR (Non-Af Amer) ml/min BUN/Creatinine Ratio (10-20) Glucose (70-99(Fasting)) mg/dl POC Glucose 112 H (70-99) mg/dl Lactate (0.4-2.0) mmol/L Calcium (8.5-10.1) mg/dl Magnesium (1.7-2.4) mg/dl Total Bilirubin (0.2-1.0) mg/dl AST (13-39) U/L ALT (7-52) U/L Alkaline Phosphatase (34-104) U/L C-Reactive Protein (0-0.5) mg/dl Total Protein (6.0-8.3) gm/dl Albumin (3.4-5.0) gm/dl Globulin (2.5-4.0) gm/dl Albumin/Globulin Ratio (0.9-2) Lipase (11-82) U/L Procalcitonin Pending SARS-CoV-2, RNA, NAAT NEGATIVE (NEGATIVE) 06/13/21 06/13/21 06/13/21 Range/Units 05:08 05:08 05:08 WBC 10.93 H (4.8-10.8) K/uL RBC 4.26 L (4.7-6.1) M/uL Hgb 12.2 L (14.0-18.0) g/dL Hct 36.9 L (42-52) % MCV 86.6 (80-100) fL MCH 28.6 (25-34) pg MCHC 33.1 (32-36) g/dL RDW Std Deviation 44.3 (36.4-46.3) fL RDW Coeff of Yahaira 14.1 (11.5-14.5) % Plt Count 255 (130-400) K/uL MPV 10.2 (7.4-10.4) fL Neutrophils % (Manual) 58.7 % Lymphocytes % (Manual) 23.7 % Reactive Lymphs % (Man) 11.4 % Monocytes % (Manual) 4.4 % Eosinophils % (Manual) 1.8 % Neutrophils # (Manual) 6.42 (1.4-6.5) K/uL Total Absolute Neuts 6.42 (1.4-6.5) K/uL Lymphocytes # (Manual) 2.59 (1.2-3.4) K/uL Reactive Lymphs # 1.25 K/uL Total Abs Lymphocytes 3.84 H (1.2-3.4) K/uL Monocytes # (Manual) 0.48 (0.11-0.59) K/uL Eosinophils # (Manual) 0.20 (0-0.5) K/uL Blood Smear Review ESR (0-20) mm/hr Sodium 139 (136-145) mmol/L Potassium 3.9 (3.5-5.1) mmol/L Chloride 105 (98-107) mmol/L Carbon Dioxide 28 (21-32) mmol/L Anion Gap 6 (3-11) BUN 15 (6-23) mg/dl Creatinine 0.98 (0.6-1.4) mg/dl Est Cr Clr Drug Dosing 100.0 ml/min Est GFR ( Amer) 98.1 ml/min Est GFR (Non-Af Amer) 84.6 ml/min BUN/Creatinine Ratio 15.3 (10-20) Glucose 127 H (70-99(Fasting)) mg/dl POC Glucose (70-99) mg/dl Lactate 0.8 (0.4-2.0) mmol/L Calcium 8.7 (8.5-10.1) mg/dl Magnesium 1.6 L (1.7-2.4) mg/dl Total Bilirubin 0.5 (0.2-1.0) mg/dl AST 10 L (13-39) U/L ALT 13 (7-52) U/L Alkaline Phosphatase 20 L (34-104) U/L C-Reactive Protein (0-0.5) mg/dl Total Protein 6.4 (6.0-8.3) gm/dl Albumin 3.6 (3.4-5.0) gm/dl Globulin 2.8 (2.5-4.0) gm/dl Albumin/Globulin Ratio 1.3 (0.9-2) Lipase (11-82) U/L Procalcitonin SARS-CoV-2, RNA, NAAT (NEGATIVE) 06/12/21 06/12/21 06/12/21 Range/Units 22:30 20:56 20:56 WBC (4.8-10.8) K/uL RBC (4.7-6.1) M/uL Hgb (14.0-18.0) g/dL Hct (42-52) % MCV (80-100) fL MCH (25-34) pg MCHC (32-36) g/dL RDW Std Deviation (36.4-46.3) fL RDW Coeff of Yahaira (11.5-14.5) % Plt Count (130-400) K/uL MPV (7.4-10.4) fL Neutrophils % (Manual) % Lymphocytes % (Manual) % Reactive Lymphs % (Man) % Monocytes % (Manual) % Eosinophils % (Manual) % Neutrophils # (Manual) (1.4-6.5) K/uL Total Absolute Neuts (1.4-6.5) K/uL Lymphocytes # (Manual) (1.2-3.4) K/uL Reactive Lymphs # K/uL Total Abs Lymphocytes (1.2-3.4) K/uL Monocytes # (Manual) (0.11-0.59) K/uL Eosinophils # (Manual) (0-0.5) K/uL Blood Smear Review ESR 25 H (0-20) mm/hr Sodium (136-145) mmol/L Potassium (3.5-5.1) mmol/L Chloride (98-107) mmol/L Carbon Dioxide (21-32) mmol/L Anion Gap (3-11) BUN (6-23) mg/dl Creatinine (0.6-1.4) mg/dl Est Cr Clr Drug Dosing ml/min Est GFR ( Amer) ml/min Est GFR (Non-Af Amer) ml/min BUN/Creatinine Ratio (10-20) Glucose (70-99(Fasting)) mg/dl POC Glucose (70-99) mg/dl Lactate 2.0 (0.4-2.0) mmol/L Calcium (8.5-10.1) mg/dl Magnesium (1.7-2.4) mg/dl Total Bilirubin (0.2-1.0) mg/dl AST (13-39) U/L ALT (7-52) U/L Alkaline Phosphatase (34-104) U/L C-Reactive Protein 1.08 H (0-0.5) mg/dl Total Protein (6.0-8.3) gm/dl Albumin (3.4-5.0) gm/dl Globulin (2.5-4.0) gm/dl Albumin/Globulin Ratio (0.9-2) Lipase (11-82) U/L Procalcitonin SARS-CoV-2, RNA, NAAT (NEGATIVE) 06/12/21 06/12/21 Range/Units 20:56 20:56 WBC 14.91 H (4.8-10.8) K/uL RBC 4.72 (4.7-6.1) M/uL Hgb 13.7 L (14.0-18.0) g/dL Hct 40.8 L (42-52) % MCV 86.4 (80-100) fL MCH 29.0 (25-34) pg MCHC 33.6 (32-36) g/dL RDW Std Deviation 44.0 (36.4-46.3) fL RDW Coeff of Yahaira 13.9 (11.5-14.5) % Plt Count 323 (130-400) K/uL MPV 10.3 (7.4-10.4) fL Neutrophils % (Manual) 50.8 % Lymphocytes % (Manual) 20.2 % Reactive Lymphs % (Man) 24.6 % Monocytes % (Manual) 2.6 % Eosinophils % (Manual) 1.8 % Neutrophils # (Manual) 7.57 H (1.4-6.5) K/uL Total Absolute Neuts 7.57 H (1.4-6.5) K/uL Lymphocytes # (Manual) 3.01 (1.2-3.4) K/uL Reactive Lymphs # 3.67 K/uL Total Abs Lymphocytes 6.68 H (1.2-3.4) K/uL Monocytes # (Manual) 0.39 (0.11-0.59) K/uL Eosinophils # (Manual) 0.27 (0-0.5) K/uL Blood Smear Review ESR (0-20) mm/hr Sodium 137 (136-145) mmol/L Potassium 4.0 (3.5-5.1) mmol/L Chloride 104 (98-107) mmol/L Carbon Dioxide 23 (21-32) mmol/L Anion Gap 10 (3-11) BUN 17 (6-23) mg/dl Creatinine 1.02 (0.6-1.4) mg/dl Est Cr Clr Drug Dosing 96.1 ml/min Est GFR ( Amer) 93.5 ml/min Est GFR (Non-Af Amer) 80.6 ml/min BUN/Creatinine Ratio 16.7 (10-20) Glucose 179 H (70-99(Fasting)) mg/dl POC Glucose (70-99) mg/dl Lactate (0.4-2.0) mmol/L Calcium 9.2 (8.5-10.1) mg/dl Magnesium (1.7-2.4) mg/dl Total Bilirubin 0.3 (0.2-1.0) mg/dl AST 12 L (13-39) U/L ALT 15 (7-52) U/L Alkaline Phosphatase 23 L (34-104) U/L C-Reactive Protein (0-0.5) mg/dl Total Protein 6.9 (6.0-8.3) gm/dl Albumin 4.0 (3.4-5.0) gm/dl Globulin 2.9 (2.5-4.0) gm/dl Albumin/Globulin Ratio 1.4 (0.9-2) Lipase 23 (11-82) U/L Procalcitonin SARS-CoV-2, RNA, NAAT (NEGATIVE) Diagnostic Findings Abdomen/Pelvis CT 06/12/21 22:[address] WITHOUT CONTRAST CT DOSE: 891.89 mGy.cm HISTORY: Acute left lower quadrant abdominal pain LLQ abd pain. hx colitis. No apdx. TECHNIQUE: Multiaxial CT images of the abdomen and pelvis were performed without contrast. A dose lowering technique was utilized adhering to the principles of ALARA. COMPARISON STUDY: CTA abdomen and pelvis 04/20/2021 FINDINGS: The imaged inferior cardiac chambers are unremarkable. Mild subsegmental bibasilar atelectasis. 5 mm solid nodule of the right middle lobe on image 8 of series 3 is unchanged. There is no pneumatosis or pneumoperitoneum. The unenhanced spleen, pancreas, and adrenal glands are unremarkable. Cholelithiasis. Focus of air within the gallbladder lumen redemonstrated. Unremarkable liver. Nonspecific bilateral perinephric inflammation. No hydronephrosis. Mild nonspecific urinary bladder wall thickening. Small fat filled inguinal hernias. No abdominal aortic aneurysm or lymphadenopathy. Mild nonspecific distal esophageal wall thickening. Extensive fecal retention. There is distention of the large bowel measuring up to 7.3 cm. Pill fragment within the dependent cecum. Appendectomy. There is diffuse colonic wall thickening with pericolonic inflammation. There is a caliber change within the descending colon on image 213 series 3 which is new from the prior study. Unremarkable soft tissues. Degenerative changes of the spine, pelvis and hips. IMPRESSION: 1. Constipation with wall thickening of the colon and pericolonic stranding, most pronounced in the ascending, transverse and descending segments. Distention of the colon measures up to 7 cm. Findings should be correlated clinically to exclude developing toxic megacolon. 2. Caliber change of the mid descending colon is new from the prior study. Underlying mucosal lesion is considered unlikely, however could be correlated with colonoscopy. 3. No bowel obstruction. 4. Mild nonspecific distal esophageal wall thickening. 5. Cholelithiasis with gallbladder distention and nonspecific intraluminal focus of air redemonstrated. Findings could be correlated with ultrasound to exclude acute cholecystitis. ACT 112: Negative or not required by law. The above report was generated using voice recognition software. It may contain grammatical, syntax or spelling errors. Electronically signed by: Adrian Lopez M.D. 06/13/2021 9:15 AM PG Care Time/CCT Total # of Minutes Spent Total Time Spent with Patient: Total time spent is greater than 50% in coordination of care (as documented) at patient's floor/unit and/or counseling patient: Coding Level of Care Code None Diagnoses Large bowel obstruction K56.609 DM type 2 (diabetes mellitus, type 2) E11.9 Paroxysmal atrial fibrillation I48.[address] scan, gallbladder R93.2 Hypertension, essential I10 GERD (gastroesophageal reflux disease) K21.9 Hyperlipidemia E78.5 Gastroparesis K31.84 BPH (benign prostatic hyperplasia) N40.0
[2021-06-13] MEDS: MAGNESIUM SULFATE / D5W 1 GM/100 ML BAG IV SCH ×2 (09:34→12:28)
[2021-06-13] MEDS: PANTOprazole 40 MG in SYRINGE 0 ML IV SCH ×2 (10:39→21:39)
[2021-06-13 10:58] LABS: Appearance Urine Clear (Clear); Bilirubin Urine Negative (Negative); Blood Urine Negative (Negative); Color Urine Yellow; Glucose Urine UA Negative (Negative); Ketones Urine Trace (Negative); Leukocyte Esterase Urine Negative (Negative); Nitrite Urine Negative (Negative); Protein Urine Negative (Negative); Specific Gravity Urine 1.021 (1.000-1.030); Urobilinogen Urine Negative (Negative)
[2021-06-13] MEDS: MoRPHine SULFATE 2 MG/ML CARP IV PRN (11:46)
--- NOTE | 2021-06-13 12:16 | Ultrasound Report ---
US liver CLINICAL HISTORY: abd pain, cholelithiasis TECHNIQUE: Multiple real-time sonographic images of the right upper quadrant were obtained. Comparison: Comparison is made to CT abdomen pelvis 06/13/2019 FINDINGS: The liver is diffusely echogenic in appearance with poor ultrasound penetration, with normal contour, which is consistent with fatty infiltration. Is enlarged measuring 20.3 cm. No intrahepatic ductal dilatation is seen. Stones and echogenic foci are seen in the gallbladder, apparently nonmobile. Th e wall measures 3 to 4 mm in diameter with apparent increased vascularity. No definite pericholecysti c fluid is seen. A sonographic Jones's sign was not elicited by the wellness program coordinator. The common duct m easures 0.5 cm in diameter at the level of the hepatic artery. The visualized portions of the pancre as appear normal. The right kidney shows normal echogenicity, cortical thickness and renal contour. The right kidney sh ows no evidence of hydronephrosis or mass. No ascites or free fluid is seen in Marie's pouch. IMPRESSION: Gallbladder wall thickening and edema with a mobile gallstones as well as sludge noted. Sonographic M urphy's sign is negative, correlation with patient's history of pain medication administration is rec ommended. Overall findings are concerning for acute cholecystitis in the appropriate clinical setting . If clinical uncertainty remains, nuclear medicine HIDA study can be performed. ACT 112: Negative or not required by law. Electronically signed by: Ray Bear M.D. 06/13/2021 12:15 PM
[2021-06-13] MEDS ORDERED: HYDROmorphone INJ 0.5 MG/0.5 ML SYR IV STA (13:37)
[2021-06-13] MEDS ORDERED: diphenhydrAMINE 50 MG/ML VIAL IV STA ×2 (13:51→17:36)
[2021-06-13] MEDS ORDERED: CETIRIZINE HCL 10 MG TABLET PO ONE (15:47)
--- NOTE | 2021-06-13 16:21 | Gastrointestinal Consultation ---
Date of Consultation June 13, 2021 Assessment & Plan (1) Cholelithiasis: (2) Constipation: (3) Abnormal CT scan: significant constipation with colonic thickening on CT imaging: likely just severe chronic constipation cholelithiasis and abnormal biliary findings recs: --obtain HIDA scan, if positive would consider surgical consult for CCY --start golytely 4L tonight into tomorrow for bowel clean out, will likely give another 4L golytely over the weekend and plan for a colonoscopy on saturday 06/17 (needs an extended prep) --clear liquid diet --supportive care, IVFs --abx ok for now Thank you for allowing me to participate in the care of this patient History of Present Illness Attending Physician: Sherman Deluca History of Present Illness 56 year old male with IDDM, parox afib on eliquis, HTN, HLD, GERD, gastroparesis and recent 04/20-04/27/21 ([facility] hospital admission for similar symptoms who presents w/ 4-5 days of worsening diffuse lower abdominal pains. He has chronic constipation and had poor prep on last colonoscopy one year ago, CT imaging shows distended colon with stool and nonspecific thickening. He denies hematochezia, nausea, vomiting, change in appetite. Last bowel movement was yesterday but bowel movements have been small volume. Last admission here he was transferred to [facility] and had lactic acidosis and DKA. lactate is currently normal here, mild leukocytosis is noted. VSS, labs reviewed. Allergies Allergy/AdvReac Type Severity Reaction Status Date / Time No Known Allergies Allergy Verified 06/12/21 21:53 Home Medications Medication Instructions Recorded Confirmed Type flecainide 150 mg tablet 150 mg PO BID #180 tab 11/04/18 06/12/21 History lisinopril 40 mg tablet 40 mg PO QAM #90 tab 11/04/18 06/12/21 History metformin 1,000 mg tablet 1,000 mg PO BID #180 tab 11/04/18 06/12/21 History metoprolol tartrate 100 mg tablet 100 mg PO BID #180 tab 11/04/18 06/12/21 History finasteride 1 mg tablet 1 mg PO QAM 12/04/18 06/12/21 History magnesium 250 mg tablet 250 mg PO QAM 12/04/18 06/12/21 History tamsulosin 0.4 mg capsule 0.4 mg PO QAM 12/04/18 06/12/21 History cetirizine 10 mg tablet 10 mg PO QAM 03/16/20 06/12/21 History apixaban 5 mg tablet (Eliquis) 5 mg PO BID 06/25/20 06/12/21 History cholecalciferol (vitamin D3) 25 25 mcg PO BID 06/25/20 06/12/21 History mcg (1,000 unit) tablet omega [id number]-[id number]-fish oil 1,000 mg 1 cap PO BID 06/25/20 06/12/21 History (120 mg-180 mg) capsule (Fish Oil) semaglutide (Ozempic) 0.25 mg SUBCUT WK 06/25/20 06/12/21 History pantoprazole 40 mg tablet,delayed 40 mg PO DAILY 30 Days #30 tab 07/03/20 06/12/21 Rx release (Protonix) Unknown Statin 0.5 tab PO DAILY 04/20/21 06/12/21 History insulin detemir U-100 100 unit/mL 5 unit SUBCUT HS 06/12/21 06/12/21 History (3 mL) subcutaneous pen Patient History Medical History Atrial fibrillation dx 1994 > h/o cardioversion x 2; follows with [facility] Cardio/ Eliquis BPH (benign prostatic hyperplasia) Diabetic neuropathy DM type 2 (diabetes mellitus, type 2) IDDM GERD (gastroesophageal reflux disease) [place] (hard of hearing) HTN (hypertension) Hyperlipidemia Surgical History History of appendectomy History of cardioversion x 2 History of carpal tunnel release RT/LEFT History of colonoscopy History of esophagogastroduodenoscopy (EGD) History of surgery on arm LEFT ULNAR NERVE TRANSPOSITION Family History Mother Atrial fibrillation Grandfather (Maternal) Coronary heart disease Other No family history of adverse response to anesthesia No pertinent family history Social History Smoking Status: Former smoker Age Started Using Tobacco: 19; Age Quit Using Tobacco: 42; Years Smoked: 23; Number of Years Since Quit: 12; Second Hand Exposure: No; Hx Alcohol Use: Yes Alcohol type: beer Hx Substance Use: No Preferred Language: Kyrgyz Communication Ability: Effective Operator Cavity Pump Required: No Beliefs That Will Affect Care: None marital status: Current Living Situation: Alone Feels Safe at Home: Yes Assistive Devices: Glasses Review of Systems Constitutional: no fever, no chills and no weight loss Eyes: as per Subjective / HPI Ear, Nose, Mouth, Throat: as per Subjective / HPI Respiratory: no dyspnea and no dyspnea on exertion Cardiovascular: no chest pain and no palpitations Gastrointestinal: as per Subjective / HPI Musculoskeletal: no joint pain and no swelling Integumentary: no rash and no lesions Neurologic: no numbness and no paresthesia Psychiatric: no depression and no anxiety Endocrine: no fatigue Hematologic / Lymphatic: no easy bleeding and no easy bruising Physical Exam Constitutional: WD/WN, vitals as above Eyes: EOM intact bilaterally Neck: normal visual inspection Respiratory: normal respiratory effort, lungs clear to auscultation Cardiovascular: RRR, no murmur, no edema Gastrointestinal (Abdomen): Inspection/Auscultation: abdomen normal to inspection; abdomen not distended Percussion/Palpation: + abdomen tender (mild lower abdomen) and abdomen soft; no hepatosplenomegaly Musculoskeletal: Extremities: no cyanosis Gait: normal gait Skin: no rashes, warm and dry Neurologic: moves all extremities Psychiatric: A+Ox3, euthymic affect Results & Data ([facility]) Vital Signs (Past 12 Hours) Vital Signs Temp Pulse Pulse Resp BP BP Pulse Ox 06/13/21 14:46 36.8 C 67 18 137/83 94 06/13/21 13:04 64 06/13/21 13:00 36.4 C L 64 18 137/80 96 06/13/21 10:43 79 18 114/74 97 06/13/21 09:23 36.7 C 70 18 132/86 98 06/13/21 08:00 70 18 132/86 99 06/13/21 07:10 06/13/21 07:09 70 18 132/83 96 06/13/21 06:00 70 13 140/87 96 06/13/21 05:00 74 13 126/83 93 Pulse Ox 06/13/21 14:46 06/13/21 13:04 06/13/21 13:00 06/13/21 10:43 06/13/21 09:23 06/13/21 08:00 06/13/21 07:10 96 06/13/21 07:09 06/13/21 06:00 06/13/21 05:00 PG Care Time/CCT Total # of Minutes Spent Total Time Spent with Patient: Total time spent is greater than 50% in coordination of care (as documented) at patient's floor/unit and/or counseling patient: Coding Level of Care Code 37802 Inpt Consult Level 4 Diagnoses Cholelithiasis K80.[address] scan R93.89
[2021-06-13] MEDS ORDERED: LAVAGE SOLUTION 4000ML PO STA (16:22)
--- NOTE | 2021-06-13 19:54 | Communication Note ---
Date of Service: June 13, 2021 Messaged by nursing about needing to be NPO after midnight for tomorrow's HIDA scan, per nuclear tech. update: patient only completed 2L of his 4L bowel prep. Notified of rash. Patient has already received 25mg IV benadyl and 50mg IV benadryl today. Initially, considered zosyn, however, on further questioning, patient states he has had intermittent urticaria for years. He had it during his 03/2021 hospital admission, but even prior to receiving zosyn at that visit. on exam: Urticaria at left lower back. There are palpable red colored wheals. Patient states it has slightly resolved. considered drug reaction vs crohns vs urticarial vasculitis vs angioedema There seems to be some associate btwn the urticaria and patient's flare up of his abd symptoms. Plan: continue zosyn. Michael Go PGY2 night resident
[2021-06-13] MEDS: HYDROmorphone INJ 0.5 MG/0.5 ML SYR IV PRN (23:29)
[2021-06-13] MEDS ORDERED: Nursing to Pharmacy Communication SCH (23:30)
[2021-06-14] MEDS: MoRPHine SULFATE 2 MG/ML CARP IV PRN (02:02)
[2021-06-14] MEDS: PIPERACILLIN/TAZOBACTAM 3.375 GM in DEXTROSE 5% 100 ML IV SCH ×3 (02:13→17:44)
[2021-06-14] MEDS: SODIUM CHLORIDE 0.9% 1000ML 1,000 ML IV SCH (04:36)
[2021-06-14] MEDS: INSULIN ASPART PER UNIT SC SCH ×3 (06:18→17:56)
[2021-06-14 07:29] LABS: Basophils # (auto) 0.02 K/uL (0-0.2); Basophils % (auto) 0.2 %; Eosinophils # (auto) 0.14 K/uL (0-0.5); Eosinophils % (auto) 1.2 %; Hematocrit (blood only) 34.2 % (42-52); Hemoglobin 11.2 g/dL (14.0-18.0); Immature Granulocytes # (auto) 0.02 K/uL (0.00-0.02); Immature Granulocytes % (auto) 0.2 %; Lymphocytes # (auto) 3.12 K/uL (1.2-3.4); Lymphocytes % (auto) 26.2 %; Mean Corpuscular Hemoglobin 28.1 pg (25-34); Mean Corpuscular Hgb Conc 32.7 g/dL (32-36); Mean Corpuscular Volume 85.9 fL (80-100); Mean Platelet Volume 10.1 fL (7.4-10.4); Monocytes # (auto) 0.82 K/uL (0.11-0.59); Monocytes % (auto) 6.9 %; Neutrophils # (auto) 7.78 K/uL (1.4-6.5); Neutrophils % (auto) 65.3 %; Platelet Count 235 K/uL (130-400); Red Blood Count 3.98 M/uL (4.7-6.1)
[2021-06-14 07:53] LABS: Albumin Globulin Ratio 1.4 (0.9-2); Albumin Level 3.3 gm/dl (3.4-5.0); BUN Creatinine Ratio 13.4 (10-20); Bilirubin,Total 0.6 mg/dl (0.2-1.0); Calcium 8.2 mg/dl (8.5-10.1); Creatinine Clr Calc Pharmacy 120.9 ml/min; Est GFR (Non-African American) 97.5 ml/min; Globulin 2.4 gm/dl (2.5-4.0); Magnesium 1.7 mg/dl (1.7-2.4); Potassium 3.8 mmol/L (3.5-5.1); Total Protein 5.7 gm/dl (6.0-8.3)
--- NOTE | 2021-06-14 07:57 | Surgery Progress Note ---
Date of Service June 14, 2021 Assessment & Plan Plan: Patient being prepped for colonoscopy on Thursday His ultrasound of the gallbladder shows some edema and stones He is for a HIDA scan If the HIDA scan shows no filling of the gallbladder would proceed with laparoscopic cholecystectomy on Thursday Possibly a coordinated procedure with colonoscopy in the OR Patient does not want his gallbladder removed unless absolutely necessary Dr. Quiroz is covering over the weekend This was discussed with [place] Will try to discuss with GI Admission and Anticipated Discharge Date Admission Date: June 13, 2021 Subjective Patient with some lower abdominal pain No epigastric or right upper quadrant pain Bowel prep seems to be working Scheduled for HIDA scan at approximately 430 this afternoon-cannot perform sooner Review of Systems Constitutional: no fever, no chills and no weight loss Eyes: + corrective lenses Ear, Nose, Mouth, Throat: no ear pain Respiratory: no cough and no dyspnea Cardiovascular: no chest pain Gastrointestinal: as per Subjective / HPI, + abdominal pain and + constipation; no nausea, no vomiting, no diarrhea/loose stools and no blood in stools Genitourinary: no dysuria Musculoskeletal: no back pain Integumentary: no rash Neurologic: no localized weakness Physical Exam Physical Exam: Patient awake and alert in no distress his abdomen is flat soft and has minimal tenderness in the lower abdomen No pain in the upper abdomen to palpation Results & Data ([facility]) Vital Signs (Past 12 Hours) Vital Signs Temp Pulse Pulse Resp BP Pulse Ox 06/14/21 04:31 36.7 C 81 18 151/80 H 96 06/13/21 23:27 36.8 C 76 18 128/74 96 06/13/21 23:00 85 PG Care Time/CCT Total # of Minutes Spent Total Time Spent with Patient: Total time spent is greater than 50% in coordination of care (as documented) at patient's floor/unit and/or counseling patient: Coding Level of Care Code 72011 Subseq Hosp Care Lvl 2
--- NOTE | 2021-06-14 07:59 | Hospitalist Progress Note ---
Date of Service June 14, 2021 Assessment & Plan (1) Large bowel obstruction: Plan: 56 year old male with IDDM, paroxysmal afib on Eliquis, HTN, HLD, GERD, gastroparesis who presents w/ 5 days of lower abdominal pain secondary to possible large bowel obstruction as suggested by transition point at the descending colon. He does have large stool burden per my read and may benefit from disimpaction. He was admitted to [facility] on 04/20/21 w/ transfer to for possible ischemic bowel and there was treated for septic shock, DKA, and fecal disimpaction and ultimately thought not to have had ischemic bowel. per CT imaging and prior colonoscopy, lower suspicion for renal pathology or diverticular disease. Patient is s/p open appendectomy in the s; increased risk of adhesions. * 1. Constipation with wall thickening of the colon and pericolonic stranding, most pronounced in the ascending, transverse and descending segments. Distention of the colon measures up to 7 cm. Findings should be correlated clinically to exclude developing toxic megacolon. * 2. Caliber change of the mid descending colon is new from the prior study. Underlying mucosal lesion is considered unlikely, however could be correlated with colonoscopY. * 3. No bowel obstruction. * 4. Mild nonspecific distal esophageal wall thickening. * 5. Cholelithiasis with gallbladder distention and nonspecific intraluminal focus of air re-demonstrated. Findings could be correlated with ultrasound to exclude acute cholecystitis. General surgery consulted -- not surgical abdomen. Of note, avoid ex-lax given likely causing issues with colonic inertia as taking 4-5 times at home [employer]. GI consulted -- bowel prep overnight last night, again this weekend planned and c-scope for thursday Moving bowels, can continue clear liquids Given GB stones/distension, RUQ checked --> sludge and thickening LFTs remain without elevation. Denies RUQ pain but does have some to deep palpation Remains on Zosyn WBC elevated but suspect also related to LBO, remains afebrile Lactic normalized Continue IVF while NPO for HIDA scan Pending results of HIDA, may need CCY. If stable, can plan for Thursday and need to be NPO after midnight Thursday. If decompensates over weekend will need to contact Dr Quiroz as Dr Lowery will be off service Antiemetics, pain control prn- - diluadid for breakthrough Heparin SQ for DVT Prophylaxis (eliquis on hold in case of need for surgery) --> remains on fleccanide for hx paroxysmal afib, currently in NSR on telemetry Protonix for GI prophylaxis Cdiff also ordered given possible toxic megacolon on CT and recent abx use Electrolyte replacement/supportive care (2) Urticaria: Plan: Rash formed last evening to back/thigh, states occurs when does not take cetirizine got benadryl x 2 last evening ?urticarial vasculitis vs drug reaction from zosyn (although received this before). states chronic issue, ?stress related urticaria --> ?f/u allergy/immunology rash almost completely resolved, occurring prior to admission and ongoing for ~2 years, comes and goes and uses cetirizine at home. Will make benadryl available prn (3) DM type 2 (diabetes mellitus, type 2): Plan: - basal+SSI. home PO regimen held BSGs acceptable (4) Paroxysmal atrial fibrillation: Plan: - continue home metoprolol, flecainide - hold home Eliquis in even may need colonoscopy. last dose was AM of 06/12/21 and remains on Heparin SQ, monitoring on telemetry (5) Abnormal CT scan, gallbladder: Plan: - gallbladder air focus on CT abd/pelv; was also present on 04/20/21 CT. No RUQ ttp on exam but will check US for completeness --> RUQ abnormal, HIDA scan ordered (6) Hypertension, essential: Plan: continue home regimen except lisinopril BP 117/69 Monitor (7) GERD (gastroesophageal reflux disease): Plan: Continue Protonix while inpatient, switched to IV BID given distal esophageal wall thickening on GI and epigastric discomfort on examination, resolved today since having BMs and changed back to once daily for now Mag replacement as above to keep >2 (8) Hyperlipidemia: Plan: - unknown home statin, currently held (9) Gastroparesis: Plan: - 2/2 DM. less likely contributory to LBO (10) BPH (benign prostatic hyperplasia): Plan: - continue home Flomax (11) Abnormal CT scan: Plan: as above, HIDA scan now pending (12) Cholelithiasis: Plan: noted on CT RUQ with sludge HIDA scan ordered for today (13) Constipation: Plan: moving bowels, prep ordered by GI Plan: Continued inpatient stay through weekend Admission and Anticipated Discharge Date Admission Date: June 13, 2021 Subjective Patient evaluated this morning. Doing alright. pain improved but still present to lower abdomen/LLQ. Denies nausea/vomiting. Hasn't had much to eat. Currently NPO for HIDA scan but discussed if need for surgery unless acutely decompensates would be for Thursday. Agreeable to if needed based on HIDA results. Moving bowels with prep. States was seen by GI PA this morning. No fever, chills, chest pain, shortness of breath dysuria at this time. He had a rash develop on his back/trunk and abdomen last evening, almost completely resolved today with administration of benadryl. Typically takes cetrizine at home for these episodes. They come on without provocation. States doesn't change detergent. Discussed has been seen by jesus at [place] but they want pictures and he hasn't had breakouts when having appointments. Discussed taking pictures and possible follow up allergy/immunology in future for stress/heat induced urticara? Questions/concerns addressed at this time. Review of Systems Review of Systems: All systems reviewed & are unremarkable except as noted in HPI & below Physical Exam Physical Exam: General: WD/WN, laying in bed, NAD HEENT; head atraumatic, normocephalic, mmm, trachea midline without deviation Resp: CTAB, no w/c/r, on RA CV: RRR, no mn/r/g, calves non-tender, pulses palpable GI: +BS, soft, tenderness to palpation LLQ/lower abdomen, voluntary guarding but no rigidity, slight tenderness to deep palpation RUQ Psych: AOX3, pleasant and cooperative Neuro: no focal deficit, answering questions appropriately, CN intact grossly Skin: warm, dry, healing 3 wheels/hives from breakout last night to lower L back/flank, blanchable, no drainage Results & Data Results & Data ([facility]) Vital Signs (Past 12 Hours) Vital Signs Temp Pulse Pulse Resp BP Pulse Ox 06/14/21 04:31 36.7 C 81 18 151/80 H 96 06/13/21 23:27 36.8 C 76 18 128/74 96 06/13/21 23:00 85 Laboratory Results 04/22/22 04/22/22 04/22/22 Range/Units 06:45 06:45 05:40 WBC 11.90 H (4.8-10.8) K/uL RBC 3.98 L (4.7-6.1) M/uL Hgb 11.2 L (14.0-18.0) g/dL Hct 34.2 L (42-52) % MCV 85.9 (80-100) fL MCH 28.1 (25-34) pg MCHC 32.7 (32-36) g/dL RDW Std Deviation 44.0 (36.4-46.3) fL RDW Coeff of Yahaira 14.0 (11.5-14.5) % Plt Count 235 (130-400) K/uL MPV 10.1 (7.4-10.4) fL Immature Gran % (Auto) 0.2 % Neut % (Auto) 65.3 % Lymph % (Auto) 26.2 % Waldo % (Auto) 6.9 % Eos % (Auto) 1.2 % Baso % (Auto) 0.2 % Neut # (Auto) 7.78 H (1.4-6.5) K/uL Lymph # (Auto) 3.12 (1.2-3.4) K/uL Waldo # (Auto) 0.82 H (0.11-0.59) K/uL Eos # (Auto) 0.14 (0-0.5) K/uL Baso # (Auto) 0.02 (0-0.2) K/uL Immature Gran # (Auto) 0.02 (0.00-0.02) K/uL Sodium 137 (136-145) mmol/L Potassium 3.8 (3.5-5.1) mmol/L Chloride 106 (98-107) mmol/L Carbon Dioxide 26 (21-32) mmol/L Anion Gap 5 (3-11) BUN 11 (6-23) mg/dl Creatinine 0.82 (0.6-1.4) mg/dl Est Cr Clr Drug Dosing 120.9 ml/min Est GFR ( Amer) 113.0 ml/min Est GFR (Non-Af Amer) 97.5 ml/min BUN/Creatinine Ratio 13.4 (10-20) Glucose 124 H (70-99(Fasting)) mg/dl POC Glucose 128 H (70-99) mg/dl Calcium 8.2 L (8.5-10.1) mg/dl Magnesium 1.7 (1.7-2.4) mg/dl Total Bilirubin 0.6 (0.2-1.0) mg/dl AST 15 (13-39) U/L ALT 18 (7-52) U/L Alkaline Phosphatase 22 L (34-104) U/L Total Protein 5.7 L (6.0-8.3) gm/dl Albumin 3.3 L (3.4-5.0) gm/dl Globulin 2.4 L (2.5-4.0) gm/dl Albumin/Globulin Ratio 1.4 (0.9-2) Procalcitonin (0-0.5) ng/ml Urine Color Urine Appearance (Clear) Urine pH (4.5-7.5) Ur Specific [place] (1.000-1.030) Urine Protein (Negative) Urine Glucose (UA) (Negative) Urine Ketones (Negative) Urine Blood (Negative) Urine Nitrite (Negative) Urine Bilirubin (Negative) Urine Urobilinogen (Negative) Ur Leukocyte Esterase (Negative) 06/13/21 06/13/21 06/13/21 Range/Units 23:38 20:12 17:12 WBC (4.8-10.8) K/uL RBC (4.7-6.1) M/uL Hgb (14.0-18.0) g/dL Hct (42-52) % MCV (80-100) fL MCH (25-34) pg MCHC (32-36) g/dL RDW Std Deviation (36.4-46.3) fL RDW Coeff of Yahaira (11.5-14.5) % Plt Count (130-400) K/uL MPV (7.4-10.4) fL Immature Gran % (Auto) % Neut % (Auto) % Lymph % (Auto) % Waldo % (Auto) % Eos % (Auto) % Baso % (Auto) % Neut # (Auto) (1.4-6.5) K/uL Lymph # (Auto) (1.2-3.4) K/uL Waldo # (Auto) (0.11-0.59) K/uL Eos # (Auto) (0-0.5) K/uL Baso # (Auto) (0-0.2) K/uL Immature Gran # (Auto) (0.00-0.02) K/uL Sodium (136-145) mmol/L Potassium (3.5-5.1) mmol/L Chloride (98-107) mmol/L Carbon Dioxide (21-32) mmol/L Anion Gap (3-11) BUN (6-23) mg/dl Creatinine (0.6-1.4) mg/dl Est Cr Clr Drug Dosing ml/min Est GFR ( Amer) ml/min Est GFR (Non-Af Amer) ml/min BUN/Creatinine Ratio (10-20) Glucose (70-99(Fasting)) mg/dl POC Glucose 110 H 248 H 112 H (70-99) mg/dl Calcium (8.5-10.1) mg/dl Magnesium (1.7-2.4) mg/dl Total Bilirubin (0.2-1.0) mg/dl AST (13-39) U/L ALT (7-52) U/L Alkaline Phosphatase (34-104) U/L Total Protein (6.0-8.3) gm/dl Albumin (3.4-5.0) gm/dl Globulin (2.5-4.0) gm/dl Albumin/Globulin Ratio (0.9-2) Procalcitonin (0-0.5) ng/ml Urine Color Urine Appearance (Clear) Urine pH (4.5-7.5) Ur Specific [place] (1.000-1.030) Urine Protein (Negative) Urine Glucose (UA) (Negative) Urine Ketones (Negative) Urine Blood (Negative) Urine Nitrite (Negative) Urine Bilirubin (Negative) Urine Urobilinogen (Negative) Ur Leukocyte Esterase (Negative) 06/13/21 06/13/21 06/13/21 Range/Units 11:48 10:45 08:23 WBC (4.8-10.8) K/uL RBC (4.7-6.1) M/uL Hgb (14.0-18.0) g/dL Hct (42-52) % MCV (80-100) fL MCH (25-34) pg MCHC (32-36) g/dL RDW Std Deviation (36.4-46.3) fL RDW Coeff of Yahaira (11.5-14.5) % Plt Count (130-400) K/uL MPV (7.4-10.4) fL Immature Gran % (Auto) % Neut % (Auto) % Lymph % (Auto) % Waldo % (Auto) % Eos % (Auto) % Baso % (Auto) % Neut # (Auto) (1.4-6.5) K/uL Lymph # (Auto) (1.2-3.4) K/uL Waldo # (Auto) (0.11-0.59) K/uL Eos # (Auto) (0-0.5) K/uL Baso # (Auto) (0-0.2) K/uL Immature Gran # (Auto) (0.00-0.02) K/uL Sodium (136-145) mmol/L Potassium (3.5-5.1) mmol/L Chloride (98-107) mmol/L Carbon Dioxide (21-32) mmol/L Anion Gap (3-11) BUN (6-23) mg/dl Creatinine (0.6-1.4) mg/dl Est Cr Clr Drug Dosing ml/min Est GFR ( Amer) ml/min Est GFR (Non-Af Amer) ml/min BUN/Creatinine Ratio (10-20) Glucose (70-99(Fasting)) mg/dl POC Glucose 136 H 112 H (70-99) mg/dl Calcium (8.5-10.1) mg/dl Magnesium (1.7-2.4) mg/dl Total Bilirubin (0.2-1.0) mg/dl AST (13-39) U/L ALT (7-52) U/L Alkaline Phosphatase (34-104) U/L Total Protein (6.0-8.3) gm/dl Albumin (3.4-5.0) gm/dl Globulin (2.5-4.0) gm/dl Albumin/Globulin Ratio (0.9-2) Procalcitonin (0-0.5) ng/ml Urine Color Yellow Urine Appearance Clear (Clear) Urine pH 5.0 (4.5-7.5) Ur Specific [place] 1.021 (1.000-1.030) Urine Protein Negative (Negative) Urine Glucose (UA) Negative (Negative) Urine Ketones Trace H (Negative) Urine Blood Negative (Negative) Urine Nitrite Negative (Negative) Urine Bilirubin Negative (Negative) Urine Urobilinogen Negative (Negative) Ur Leukocyte Esterase Negative (Negative) 06/13/21 Range/Units 05:08 WBC (4.8-10.8) K/uL RBC (4.7-6.1) M/uL Hgb (14.0-18.0) g/dL Hct (42-52) % MCV (80-100) fL MCH (25-34) pg MCHC (32-36) g/dL RDW Std Deviation (36.4-46.3) fL RDW Coeff of Yahaira (11.5-14.5) % Plt Count (130-400) K/uL MPV (7.4-10.4) fL Immature Gran % (Auto) % Neut % (Auto) % Lymph % (Auto) % [place] % (Auto) % Eos % (Auto) % Baso % (Auto) % Neut # (Auto) (1.4-6.5) K/uL Lymph # (Auto) (1.2-3.4) K/uL Waldo # (Auto) (0.11-0.59) K/uL Eos # (Auto) (0-0.5) K/uL Baso # (Auto) (0-0.2) K/uL Immature Gran # (Auto) (0.00-0.02) K/uL Sodium (136-145) mmol/L Potassium (3.5-5.1) mmol/L Chloride (98-107) mmol/L Carbon Dioxide (21-32) mmol/L Anion Gap (3-11) BUN (6-23) mg/dl Creatinine (0.6-1.4) mg/dl Est Cr Clr Drug Dosing ml/min Est GFR ( Amer) ml/min Est GFR (Non-Af Amer) ml/min BUN/Creatinine Ratio (10-20) Glucose (70-99(Fasting)) mg/dl POC Glucose (70-99) mg/dl Calcium (8.5-10.1) mg/dl Magnesium (1.7-2.4) mg/dl Total Bilirubin (0.2-1.0) mg/dl AST (13-39) U/L ALT (7-52) U/L Alkaline Phosphatase (34-104) U/L Total Protein (6.0-8.3) gm/dl Albumin (3.4-5.0) gm/dl Globulin (2.5-4.0) gm/dl Albumin/Globulin Ratio (0.9-2) Procalcitonin < 0.05 (0-0.5) ng/ml Urine Color Urine Appearance (Clear) Urine pH (4.5-7.5) Ur Specific [place] (1.000-1.030) Urine Protein (Negative) Urine Glucose (UA) (Negative) Urine Ketones (Negative) Urine Blood (Negative) Urine Nitrite (Negative) Urine Bilirubin (Negative) Urine Urobilinogen (Negative) Ur Leukocyte Esterase (Negative) Diagnostic Findings Abdomen/Pelvis CT 06/12/21 22:[address] WITHOUT CONTRAST CT DOSE: 891.89 mGy.cm HISTORY: Acute left lower quadrant abdominal pain LLQ abd pain. hx colitis. No apdx. TECHNIQUE: Multiaxial CT images of the abdomen and pelvis were performed without contrast. A dose lowering technique was utilized adhering to the principles of ALARA. COMPARISON STUDY: CTA abdomen and pelvis 04/20/2021 FINDINGS: The imaged inferior cardiac chambers are unremarkable. Mild subsegmental bibasilar atelectasis. 5 mm solid nodule of the right middle lobe on image 8 of series 3 is unchanged. There is no pneumatosis or pneumoperitoneum. The unenhanced spleen, pancreas, and adrenal glands are unremarkable. Cholelithiasis. Focus of air within the gallbladder lumen redemonstrated. Unremarkable liver. Nonspecific bilateral perinephric inflammation. No hydronephrosis. Mild nonspecific urinary bladder wall thickening. Small fat filled inguinal hernias. No abdominal aortic aneurysm or lymphadenopathy. Mild nonspecific distal esophageal wall thickening. Extensive fecal retention. There is distention of the large bowel measuring up to 7.3 cm. Pill fragment within the dependent cecum. Appendectomy. There is diffuse colonic wall thickening with pericolonic inflammation. There is a caliber change within the descending colon on image 213 series 3 which is new from the prior study. Unremarkable soft tissues. Degenerative changes of the spine, pelvis and hips. IMPRESSION: 1. Constipation with wall thickening of the colon and pericolonic stranding, most pronounced in the ascending, transverse and descending segments. Distention of the colon measures up to 7 cm. Findings should be correlated clinically to exclude developing toxic megacolon. 2. Caliber change of the mid descending colon is new from the prior study. Underlying mucosal lesion is considered unlikely, however could be correlated with colonoscopy. 3. No bowel obstruction. 4. Mild nonspecific distal esophageal wall thickening. 5. Cholelithiasis with gallbladder distention and nonspecific intraluminal focus of air redemonstrated. Findings could be correlated with ultrasound to exclude acute cholecystitis. ACT 112: Negative or not required by law. The above report was generated using voice recognition software. It may contain grammatical, syntax or spelling errors. Electronically signed by: Adrian Lopez M.D. 06/13/2021 9:15 AM Liver Ultrasound 06/13/21 09:24 US liver CLINICAL HISTORY: abd pain, cholelithiasis TECHNIQUE: Multiple real-time sonographic images of the right upper quadrant were obtained. Comparison: Comparison is made to CT abdomen pelvis 06/13/2019 FINDINGS: The liver is diffusely echogenic in appearance with poor ultrasound penetration, with normal contour, which is consistent with fatty infiltration. Is enlarged measuring 20.3 cm. No intrahepatic ductal dilatation is seen. Stones and echogenic foci are seen in the gallbladder, apparently nonmobile. The wall measures 3 to 4 mm in diameter with apparent increased vascularity. No definite pericholecystic fluid is seen. A sonographic Jones's sign was not elicited by the manager monitoring. The common duct measures 0.5 cm in diameter at the level of the hepatic artery. The visualized portions of the pancreas appear normal. The right kidney shows normal echogenicity, cortical thickness and renal contour. The right kidney shows no evidence of hydronephrosis or mass. No ascites or free fluid is seen in Marie's pouch. IMPRESSION: Gallbladder wall thickening and edema with a mobile gallstones as well as sludge noted. Sonographic Jones's sign is negative, correlation with patient's history of pain medication administration is recommended. Overall findings are concerning for acute cholecystitis in the appropriate clinical setting. If clinical uncertainty remains, nuclear medicine HIDA study can be performed. ACT 112: Negative or not required by law. Electronically signed by: Ray Bear M.D. 06/13/2021 12:15 PM PG Care Time/CCT Total # of Minutes Spent Total Time Spent with Patient: Total time spent is greater than 50% in coordination of care (as documented) at patient's floor/unit and/or counseling patient: Coding Level of Care Code 60540 Subseq Hosp Care Lvl 3 Diagnoses Large bowel obstruction K56.609 DM type 2 (diabetes mellitus, type 2) E11.9 Paroxysmal atrial fibrillation I48.[address] scan, gallbladder R93.2 Hypertension, essential I10 GERD (gastroesophageal reflux disease) K21.9 Hyperlipidemia E78.5 Gastroparesis K31.84 BPH (benign prostatic hyperplasia) N40.[address] scan R93.89 Constipation K59.00 Cholelithiasis K80.20
[2021-06-14] MEDS ORDERED: MAGNESIUM SULFATE / D5W 1 GM/100 ML BAG IV ONE (08:30)
[2021-06-14] MEDS: TAMSULOSIN HCL 0.4 MG CAP PO SCH (09:25)
[2021-06-14] MEDS: METOPROLOL TARTRATE 100 MG TAB PO SCH ×2 (09:25→19:58)
[2021-06-14] MEDS: NSS + 20MEQ KCL 20 MEQ/1,000 ML BAG IV SCH (09:25)
[2021-06-14] MEDS: FLECAINIDE ACETATE 100 MG TABLET PO SCH ×2 (09:25→19:58)
[2021-06-14] MEDS: INSULIN GLARGINE SOLOSTAR 100 UNITS/ML 3 ML PEN SC SCH ×2 (09:26→21:23)
[2021-06-14] MEDS: HEPARIN SOD 5,000 UNIT/0.5 ML VIAL SQ SCH ×2 (09:26→17:44)
--- NOTE | 2021-06-14 09:39 | Gastroenterology Progress Note ---
Date of Service June 14, 2021 Assessment & Plan (1) Abnormal CT scan: (2) Constipation: (3) Abnormal CT scan, gallbladder: Plan: -HIDA scan ordered for this AM -Continue liquid diet throughout the weekend -Extended bowel prep and colonoscopy on Thursday -Further recommendations pending test results Admission and Anticipated Discharge Date Admission Date: June 13, 2021 Subjective Patient is a 56 yo male GI was asked to see regarding significant constipation and an abnormal GI CT imaging. Patient is moving his bowels. He notes persistent abdominal pains but notes it is suprapubic. He is having a HIDA scan this AM. He is planned for a colonoscopy on Thursday06/17/21. He denies new issues. Review of Systems Constitutional: no fever and no chills Gastrointestinal: + abdominal pain and + change in bowel habits; no blood in s tools Physical Exam Constitutional: well developed Respiratory: normal respiratory effort Cardiovascular: Rate/Rhythm: regular rate Gastrointestinal (Abdomen): Inspection/Auscultation: abdomen normal to inspection and normal bowel sounds Percussion/Palpation: + abdomen tender and abdomen soft Musculoskeletal: Head/Neck/Chest: normocephalic Psychiatric: Orientation: alert and oriented x 3 Results & Data Results & Data ([facility]) Vital Signs (Past 12 Hours) Vital Signs Temp Pulse Pulse Resp BP Pulse Ox 06/14/21 08:02 36.7 C 73 18 117/69 96 06/14/21 04:31 36.7 C 81 18 151/80 H 96 06/13/21 23:27 36.8 C 76 18 128/74 96 06/13/21 23:00 85 PG Care Time/CCT Total # of Minutes Spent Total Time Spent with Patient: Total time spent is greater than 50% in coordination of care (as documented) at patient's floor/unit and/or counseling patient: Coding Level of Care Code 12350 Subseq Hosp Care Lvl [address] scan R93.[address] scan, gallbladder R93.2
[2021-06-14] MEDS: PANTOprazole 40 MG in SYRINGE 0 ML IV SCH (09:53)
--- NOTE | 2021-06-14 12:11 | Electrocardiogram Report ---
Test Reason : Blood Pressure : / mmHG Vent. Rate : 082 BPM Atrial Rate : 082 BPM P-R Int : 152 ms QRS Dur : 096 ms QT Int : 396 ms P-R-T Axes : 004 -06 006 degrees QTc Int : 462 ms Normal sinus rhythm Nonspecific T wave abnormality Abnormal ECG When compared with ECG of 20-APR-2021 18:03, Left bundle branch block is no longer Present Confirmed by Manuelito John ([id number]) on 06/14/2021 12:11:05 PM Referred By: REFERRED SELF Confirmed By:Kyler John
[2021-06-14] MEDS ORDERED: MoRPHine SULFATE 2 MG/ML CARP ONE (15:39)
--- NOTE | 2021-06-14 16:42 | Nuclear Medicine Report ---
NUCLEAR MEDICINE HEPATOBILIARY SCAN HISTORY: Right upper quadrant abdominal pain, stone on CT, thickening/sludge on US COMPARISON: Abdomen and pelvis CT 06/12/2021. TECHNIQUE: Immediately following the intravenous administration of 5.0 mCi Tc-99m Choletec, dynamic a nterior abdominal imaging was performed. FINDINGS: Uniform hepatic tracer accumulation is shown. Prompt intrahepatic biliary excretion is seen. The comm on bile duct and small bowel are all visualized by 10 minutes. The gallbladder was not visualized on the initial 60 minutes of imaging. Therefore, 2 mg of intravenous morphine were administered and an a dditional 30 minutes of imaging was obtained. The gallbladder was not identified on the additional 30 minutes of imaging. Therefore, this is consistent with cystic duct obstruction/acute cholecystitis. IMPRESSION: Above findings consistent with cystic duct obstruction/acute cholecystitis. ACT 112: Negative or not required by law. Electronically signed by: Norberto Guillermo M.D. 06/14/2021 4:41 PM
[2021-06-14] MEDS: LAVAGE SOLUTION 4000ML PO SCH (17:44)
[2021-06-14] MEDS ORDERED: diphenhydrAMINE Capsule 25 MG CAP PO PRN (20:34)
[2021-06-15] MEDS: NSS + 20MEQ KCL 20 MEQ/1,000 ML BAG IV SCH ×3 (00:42→13:29)
[2021-06-15] MEDS: INSULIN ASPART PER UNIT SC SCH ×4 (00:43→17:07)
[2021-06-15] MEDS: HEPARIN SOD 5,000 UNIT/0.5 ML VIAL SQ SCH ×3 (00:44→16:58)
[2021-06-15] MEDS: PIPERACILLIN/TAZOBACTAM 3.375 GM in DEXTROSE 5% 100 ML IV SCH ×3 (04:00→17:51)
[2021-06-15] MEDS: LAVAGE SOLUTION 4000ML PO SCH (04:01)
[2021-06-15 06:52] LABS: Basophils # (auto) 0.02 K/uL (0-0.2); Basophils % (auto) 0.3 %; Eosinophils # (auto) 0.21 K/uL (0-0.5); Eosinophils % (auto) 2.8 %; Hematocrit (blood only) 33.7 % (42-52); Immature Granulocytes # (auto) 0.01 K/uL (0.00-0.02); Immature Granulocytes % (auto) 0.1 %; Lymphocytes # (auto) 3.14 K/uL (1.2-3.4); Lymphocytes % (auto) 41.9 %; Mean Corpuscular Hemoglobin 28.2 pg (25-34); Mean Corpuscular Hgb Conc 32.6 g/dL (32-36); Mean Corpuscular Volume 86.4 fL (80-100); Mean Platelet Volume 10.2 fL (7.4-10.4); Monocytes # (auto) 0.52 K/uL (0.11-0.59); Monocytes % (auto) 6.9 %; Neutrophils # (auto) 3.59 K/uL (1.4-6.5); Platelet Count 234 K/uL (130-400); RDW Coefficient of Variation 13.9 % (11.5-14.5); RDW Standard Deviation 43.8 fL (36.4-46.3); White Blood Count 7.49 K/uL (4.8-10.8)
[2021-06-15 07:09] LABS: Albumin Globulin Ratio 1.3 (0.9-2); Albumin Level 3.3 gm/dl (3.4-5.0); BUN Creatinine Ratio 7.3 (10-20); Bilirubin,Total 0.5 mg/dl (0.2-1.0); Calcium 8.4 mg/dl (8.5-10.1); Creatinine Clr Calc Pharmacy 120.2 ml/min; Est GFR (Non-African American) 97.5 ml/min; Globulin 2.6 gm/dl (2.5-4.0); Magnesium 1.8 mg/dl (1.7-2.4); Potassium 3.9 mmol/L (3.5-5.1); Total Protein 5.9 gm/dl (6.0-8.3)
--- NOTE | 2021-06-15 07:45 | Hospitalist Progress Note ---
Date of Service June 15, 2021 Assessment & Plan (1) Acute cholecystitis: Plan: presented with LBO/distension of colon and possible toxic megacolon General surgery was on consult on admission, not surgical abdomen and avoid ex- lax as patient was taking [employer] likely causing problems with colonic inertia LFTs were normal but on CTAP on admission GB noted to be distended and with stones --> RUQ performed which showed sludge and thickening Denied RUQ pain in days prior but some mild tenderness to deep palpation RUQ 06/14 and HIDA scan performed HIDA scan c/w cystic duct obstruction/acute cholecystitis. Discussed with Dr Quiroz last evening, will monitor on abx for now and plan for CCY on Thursday with Dr Lowery unless decompensates over the weekend WBC now wnl, 7.4k Afebrile BCx NGTD after 48 hours Remains on Zosyn GI on consult -- seeing if able to coordinate c-scope with CCY on Thursday and also for any need for intra-op ERCP. Per Dr Vickers, will plan for c-scope on Thursday with CCY LFTs wnl Also getting prep for c-scope with Del for Thursday Continue to monitor (2) Large bowel obstruction: Plan: 56 year old male with IDDM, paroxysmal afib on Eliquis, HTN, HLD, GERD, gastroparesis who presents w/ 5 days of lower abdominal pain secondary to possible large bowel obstruction as suggested by transition point at the descending colon. He does have large stool burden per my read and may benefit from disimpaction. He was admitted to [facility] on 04/20/21 w/ transfer to [facility] for possible ischemic bowel and there was treated for septic shock, DKA, and fecal disimpaction and ultimately thought not to have had ischemic bowel. per CT imaging and prior colonoscopy, lower suspicion for renal pathology or diverticular disease. Patient is s/p open appendectomy in the s; increased risk of adhesions. * 1. Constipation with wall thickening of the colon and pericolonic stranding, most pronounced in the ascending, transverse and descending segments. Distention of the colon measures up to 7 cm. Findings should be correlated clinically to exclude developing toxic megacolon. * 2. Caliber change of the mid descending colon is new from the prior study. Underlying mucosal lesion is considered unlikely, however could be correlated with colonoscopY. * 3. No bowel obstruction. * 4. Mild nonspecific distal esophageal wall thickening. * 5. Cholelithiasis with gallbladder distention and nonspecific intraluminal focus of air re-demonstrated. Findings could be correlated with ultrasound to exclude acute cholecystitis. General surgery consulted -- not surgical abdomen. Of note, avoid ex-lax given likely causing issues with colonic inertia as taking 4-5 times at home [employer]. GI consulted -- bowel prep ordered, plans for c-scope on Thursday Clear liquid diet/prep until then See above regarding GB/acute madhu Remains on Zosyn BCx NGTD Antiemetics, pain control prn- - diluadid for breakthrough Heparin SQ for DVT Prophylaxis (eliquis on hold in case of need for surgery and will need to hold Heparin Thursday night) --> remains on fleccanide for hx paroxysmal afib, currently in NSR on telemetry Protonix for GI prophylaxis Cdiff also ordered given possible toxic megacolon on CT and recent abx use. cdiff Electrolyte replacement/supportive care -- will give 2gm mag to keep closer to 2 (3) Urticaria: Plan: Rash formed last evening to back/thigh, states occurs when does not take cetirizine got benadryl x 2 last evening ?urticarial vasculitis vs drug reaction from zosyn (although received this before). states chronic issue, ?stress related urticaria --> ?f/u allergy/immunology rash almost completely resolved, occurring prior to admission and ongoing for ~2 years, comes and goes and uses cetirizine at home. Will make benadryl available prn but has not needed this since 2 days ago (4) DM type 2 (diabetes mellitus, type 2): Plan: - basal+SSI. home PO regimen held BSGs acceptable (5) Paroxysmal atrial fibrillation: Plan: - continue home metoprolol, flecainide - hold home Eliquis in even may need colonoscopy. last dose was AM of 06/12/21 and remains on Heparin SQ, monitoring on telemetry (6) Abnormal CT scan, gallbladder: Plan: - gallbladder air focus on CT abd/pelv; was also present on 04/20/21 CT. No RUQ ttp on exam but will check US for completeness --> RUQ abnormal, HIDA scan ordered and plans for CCY on Rash[place] with Dr Lowery unless worsens over the weekend (7) Hypertension, essential: Plan: continue home regimen except lisinopril BP stable Monitor (8) GERD (gastroesophageal reflux disease): Plan: Continue Protonix while inpatient, switched to IV BID given distal esophageal wall thickening on GI and epigastric discomfort on examination, resolving today since having BMs and changed back to once daily for now Mag replacement as above to keep >2 (9) Hyperlipidemia: Plan: - unknown home statin, currently held (10) Gastroparesis: Plan: - 2/2 DM moving bowels as above (11) BPH (benign prostatic hyperplasia): Plan: - continue home Flomax (12) Abnormal CT scan: Plan: as above (13) Cholelithiasis: Plan: noted on CT RUQ with sludge, HIDA c/w acute madhu. Clear liquids for now, continue zosyn. gen surg for thursday (14) Constipation: Plan: moving bowels, prep ordered by GI Plan: Continued inpatient stay through weekend plans for CCY and c-scope Thursday with general surgery/GI Admission and Anticipated Discharge Date Admission Date: June 13, 2021 Subjective Patient evaluated this morning. States "doing shitty" and then laughed as he was referencing moving his bowels, but otherwise feeling improved somewhat. Still with lower abdominal pain, states less cramping discomfort and tolerating clear liquid low fat. No nausea or vomiting. Pain controlled with ordered medications. Discussed HIDA scan and plans to monitor over the weekend. Will intervene sooner if decompensates but otherwise discussed with GI/surgery and plans for c-scope and CCY on thursday. No fever/chills, chest pain, palpitations, shortness of breath. Questions/concerns addressed at this time. Review of Systems Review of Systems: All systems reviewed & are unremarkable except as noted in HPI & below Physical Exam Physical Exam: General: WD/WN male, resting/laying in bed, NAD HEENT; head atraumatic, normocephalic, mmm, trachea midline without deviation Resp: CTAB, no w/c/r, on RA 97% CV: RRR, no mn/r/g, calves non-tender, pulses palpable GI: +BS, soft, tenderness to palpation LLQ/lower abdomen, no guarding/rigidity, slight tenderness to deep palpation RUQ (decreased) Psych: AOX3, pleasant and cooperative Neuro: no focal deficit, answering questions appropriately, CN intact grossly Skin: warm, dry, healing 3 wheels/hives from breakout last night to lower L back/flank, blanchable, no drainage Results & Data Results & Data ([facility]) Vital Signs (Past 12 Hours) Vital Signs Temp Pulse Pulse Resp BP Pulse Ox 06/15/21 03:04 36.8 C 71 18 157/82 H 94 06/15/21 00:11 73 06/14/21 23:08 36.6 C 69 18 137/74 99 06/14/21 19:49 36.5 C 71 18 153/84 H 97 Laboratory Results 06/15/21 06/15/21 06/14/21 Range/Units 06:16 06:16 22:00 WBC 7.49 (4.8-10.8) K/uL RBC 3.90 L (4.7-6.1) M/uL Hgb 11.0 L (14.0-18.0) g/dL Hct 33.7 L (42-52) % MCV 86.4 (80-100) fL MCH 28.2 (25-34) pg MCHC 32.6 (32-36) g/dL RDW Std Deviation 43.8 (36.4-46.3) fL RDW Coeff of Yahaira 13.9 (11.5-14.5) % Plt Count 234 (130-400) K/uL MPV 10.2 (7.4-10.4) fL Immature Gran % (Auto) 0.1 % Neut % (Auto) 48.0 % Lymph % (Auto) 41.9 % [place] % (Auto) 6.9 % Eos % (Auto) 2.8 % Baso % (Auto) 0.3 % Neut # (Auto) 3.59 (1.4-6.5) K/uL Lymph # (Auto) 3.14 (1.2-3.4) K/uL [place] # (Auto) 0.52 (0.11-0.59) K/uL Eos # (Auto) 0.21 (0-0.5) K/uL Baso # (Auto) 0.02 (0-0.2) K/uL Immature Gran # (Auto) 0.01 (0.00-0.02) K/uL Sodium 137 (136-145) mmol/L Potassium 3.9 (3.5-5.1) mmol/L Chloride 108 H (98-107) mmol/L Carbon Dioxide 24 (21-32) mmol/L Anion Gap 5 (3-11) BUN 6 (6-23) mg/dl Creatinine 0.82 (0.6-1.4) mg/dl Est Cr Clr Drug Dosing 120.2 ml/min Est GFR ( Amer) 113.0 ml/min Est GFR (Non-Af Amer) 97.5 ml/min BUN/Creatinine Ratio 7.3 L (10-20) Glucose 103 H (70-99(Fasting)) mg/dl POC Glucose (70-99) mg/dl Calcium 8.4 L (8.5-10.1) mg/dl Magnesium 1.8 (1.7-2.4) mg/dl Total Bilirubin 0.5 (0.2-1.0) mg/dl AST 16 (13-39) U/L ALT 17 (7-52) U/L Alkaline Phosphatase 23 L (34-104) U/L Total Protein 5.9 L (6.0-8.3) gm/dl Albumin 3.3 L (3.4-5.0) gm/dl Globulin 2.6 (2.5-4.0) gm/dl Albumin/Globulin Ratio 1.3 (0.9-2) Stl C. diff Tox B Gene Negative Cdiff Gene (Neg) C1 Esterase Inhibitor 06/14/21 06/14/21 06/14/21 Range/Units 20:14 17:54 11:43 WBC (4.8-10.8) K/uL RBC (4.7-6.1) M/uL Hgb (14.0-18.0) g/dL Hct (42-52) % MCV (80-100) fL MCH (25-34) pg MCHC (32-36) g/dL RDW Std Deviation (36.4-46.3) fL RDW Coeff of Yahaira (11.5-14.5) % Plt Count (130-400) K/uL MPV (7.4-10.4) fL Immature Gran % (Auto) % Neut % (Auto) % Lymph % (Auto) % [place] % (Auto) % Eos % (Auto) % Baso % (Auto) % Neut # (Auto) (1.4-6.5) K/uL Lymph # (Auto) (1.2-3.4) K/uL [place] # (Auto) (0.11-0.59) K/uL Eos # (Auto) (0-0.5) K/uL Baso # (Auto) (0-0.2) K/uL Immature Gran # (Auto) (0.00-0.02) K/uL Sodium (136-145) mmol/L Potassium (3.5-5.1) mmol/L Chloride (98-107) mmol/L Carbon Dioxide (21-32) mmol/L Anion Gap (3-11) BUN (6-23) mg/dl Creatinine (0.6-1.4) mg/dl Est Cr Clr Drug Dosing ml/min Est GFR ( Amer) ml/min Est GFR (Non-Af Amer) ml/min BUN/Creatinine Ratio (10-20) Glucose (70-99(Fasting)) mg/dl POC Glucose 164 H 107 H 127 H (70-99) mg/dl Calcium (8.5-10.1) mg/dl Magnesium (1.7-2.4) mg/dl Total Bilirubin (0.2-1.0) mg/dl AST (13-39) U/L ALT (7-52) U/L Alkaline Phosphatase (34-104) U/L Total Protein (6.0-8.3) gm/dl Albumin (3.4-5.0) gm/dl Globulin (2.5-4.0) gm/dl Albumin/Globulin Ratio (0.9-2) Stl C. diff Tox B Gene (Neg) C1 Esterase Inhibitor 06/14/21 06/14/21 Range/Units 11:05 06:45 WBC (4.8-10.8) K/uL RBC (4.7-6.1) M/uL Hgb (14.0-18.0) g/dL Hct (42-52) % MCV (80-100) fL MCH (25-34) pg MCHC (32-36) g/dL RDW Std Deviation (36.4-46.3) fL RDW Coeff of Yahaira (11.5-14.5) % Plt Count (130-400) K/uL MPV (7.4-10.4) fL Immature Gran % (Auto) % Neut % (Auto) % Lymph % (Auto) % [place] % (Auto) % Eos % (Auto) % Baso % (Auto) % Neut # (Auto) (1.4-6.5) K/uL Lymph # (Auto) (1.2-3.4) K/uL [place] # (Auto) (0.11-0.59) K/uL Eos # (Auto) (0-0.5) K/uL Baso # (Auto) (0-0.2) K/uL Immature Gran # (Auto) (0.00-0.02) K/uL Sodium 137 (136-145) mmol/L Potassium 3.8 (3.5-5.1) mmol/L Chloride 106 (98-107) mmol/L Carbon Dioxide 26 (21-32) mmol/L Anion Gap 5 (3-11) BUN 11 (6-23) mg/dl Creatinine 0.82 (0.6-1.4) mg/dl Est Cr Clr Drug Dosing 120.9 ml/min Est GFR ( Amer) 113.0 ml/min Est GFR (Non-Af Amer) 97.5 ml/min BUN/Creatinine Ratio 13.4 (10-20) Glucose 124 H (70-99(Fasting)) mg/dl POC Glucose (70-99) mg/dl Calcium 8.2 L (8.5-10.1) mg/dl Magnesium 1.7 (1.7-2.4) mg/dl Total Bilirubin 0.6 (0.2-1.0) mg/dl AST 15 (13-39) U/L ALT 18 (7-52) U/L Alkaline Phosphatase 22 L (34-104) U/L Total Protein 5.7 L (6.0-8.3) gm/dl Albumin 3.3 L (3.4-5.0) gm/dl Globulin 2.4 L (2.5-4.0) gm/dl Albumin/Globulin Ratio 1.4 (0.9-2) Stl C. diff Tox B Gene (Neg) C1 Esterase Inhibitor Pending Diagnostic Findings Hepatobiliary Scan Nuclear Medicine 06/14/21 16:25 NUCLEAR MEDICINE HEPATOBILIARY SCAN HISTORY: Right upper quadrant abdominal pain, stone on CT, thickening/sludge on US COMPARISON: Abdomen and pelvis CT 06/12/2021. TECHNIQUE: Immediately following the intravenous administration of 5.0 mCi Tc- 99m Choletec, dynamic anterior abdominal imaging was performed. FINDINGS: Uniform hepatic tracer accumulation is shown. Prompt intrahepatic biliary excretion is seen. The common bile duct and small bowel are all visualized by 10 minutes. The gallbladder was not visualized on the initial 60 minutes of imaging. Therefore, 2 mg of intravenous morphine were administered and an additional 30 minutes of imaging was obtained. The gallbladder was not identified on the additional 30 minutes of imaging. Therefore, this is consistent with cystic duct obstruction/acute cholecystitis. IMPRESSION: Above findings consistent with cystic duct obstruction/acute cholecystitis. ACT 112: Negative or not required by law. Electronically signed by: Norberto Guillermo M.D. 06/14/2021 4:41 PM PG Care Time/CCT Total # of Minutes Spent Total Time Spent with Patient: Total time spent is greater than 50% in coordination of care (as documented) at patient's floor/unit and/or counseling patient: Coding Level of Care Code 80051 Subseq Hosp Care Lvl 3 Diagnoses Large bowel obstruction K56.609 Urticaria L50.9 DM type 2 (diabetes mellitus, type 2) E11.9 Paroxysmal atrial fibrillation I48.[address] scan, gallbladder R93.2 Hypertension, essential I10 GERD (gastroesophageal reflux disease) K21.9 Hyperlipidemia E78.5 Gastroparesis K31.84 BPH (benign prostatic hyperplasia) N40.[address] scan R93.89 Cholelithiasis K80.20 Constipation K59.00 Acute cholecystitis K81.0
[2021-06-15] MEDS ORDERED: PANTOprazole 40 MG in SYRINGE 0 ML IV SCH (09:00)
[2021-06-15] MEDS: FLECAINIDE ACETATE 100 MG TABLET PO SCH ×2 (09:06→20:24)
[2021-06-15] MEDS: INSULIN GLARGINE SOLOSTAR 100 UNITS/ML 3 ML PEN SC SCH ×2 (09:08→20:25)
[2021-06-15] MEDS: MAGNESIUM SULFATE / D5W 1 GM/100 ML BAG IV SCH ×2 (09:08→11:36)
--- NOTE | 2021-06-15 10:10 | Surgery Progress Note ---
Date of Service June 15, 2021 Assessment & Plan (1) Abdominal pain of unknown cause: Plan: Patient being prepped for colonoscopy on Thursday His ultrasound of the gallbladder shows some edema and stones HIDA scan demonstrates blockage of cystic duct. He will be set up for probable lap cholecystectomy on Thursday in conjunction with colonoscopy. Admission and Anticipated Discharge Date Admission Date: June 13, 2021 Subjective Feeling okay today. He is prepping for his colonoscopy. He denies fevers or chills. He denies right upper quadrant pain. He denies nausea. Physical Exam Physical Exam: Patient awake and alert in no distress his abdomen is flat soft and has minimal tenderness in the lower abdomen No pain in the upper abdomen to palpation Constitutional: well developed and well nourished; no acute distress Neck: trachea midline Gastrointestinal (Abdomen): Inspection/Auscultation: abdomen normal to inspection; abdomen not distended Percussion/Palpation: abdomen soft; abdomen nontender Skin: no rashes Neurologic: moves all extremities Psychiatric: A+Ox3, euthymic affect Results & Data ([facility]) Vital Signs (Past 12 Hours) Vital Signs Temp Pulse Pulse Resp BP Pulse Ox 06/15/21 08:38 36.3 C L 72 20 172/87 H 97 06/15/21 03:04 36.8 C 71 18 157/82 H 94 06/15/21 00:11 73 06/14/21 23:08 36.6 C 69 18 137/74 99 Laboratory Results 06/15/21 06/15/21 06/15/21 Range/Units 07:48 06:16 06:16 WBC 7.49 (4.8-10.8) K/uL RBC 3.90 L (4.7-6.1) M/uL Hgb 11.0 L (14.0-18.0) g/dL Hct 33.7 L (42-52) % MCV 86.4 (80-100) fL MCH 28.2 (25-34) pg MCHC 32.6 (32-36) g/dL RDW Std Deviation 43.8 (36.4-46.3) fL RDW Coeff of Yahaira 13.9 (11.5-14.5) % Plt Count 234 (130-400) K/uL MPV 10.2 (7.4-10.4) fL Immature Gran % (Auto) 0.1 % Neut % (Auto) 48.0 % Lymph % (Auto) 41.9 % [place] % (Auto) 6.9 % Eos % (Auto) 2.8 % Baso % (Auto) 0.3 % Neut # (Auto) 3.59 (1.4-6.5) K/uL Lymph # (Auto) 3.14 (1.2-3.4) K/uL [place] # (Auto) 0.52 (0.11-0.59) K/uL Eos # (Auto) 0.21 (0-0.5) K/uL Baso # (Auto) 0.02 (0-0.2) K/uL Immature Gran # (Auto) 0.01 (0.00-0.02) K/uL Sodium 137 (136-145) mmol/L Potassium 3.9 (3.5-5.1) mmol/L Chloride 108 H (98-107) mmol/L Carbon Dioxide 24 (21-32) mmol/L Anion Gap 5 (3-11) BUN 6 (6-23) mg/dl Creatinine 0.82 (0.6-1.4) mg/dl Est Cr Clr Drug Dosing 120.2 ml/min Est GFR ( Amer) 113.0 ml/min Est GFR (Non-Af Amer) 97.5 ml/min BUN/Creatinine Ratio 7.3 L (10-20) Glucose 103 H (70-99(Fasting)) mg/dl POC Glucose 116 H (70-99) mg/dl Calcium 8.4 L (8.5-10.1) mg/dl Magnesium 1.8 (1.7-2.4) mg/dl Total Bilirubin 0.5 (0.2-1.0) mg/dl AST 16 (13-39) U/L ALT 17 (7-52) U/L Alkaline Phosphatase 23 L (34-104) U/L Total Protein 5.9 L (6.0-8.3) gm/dl Albumin 3.3 L (3.4-5.0) gm/dl Globulin 2.6 (2.5-4.0) gm/dl Albumin/Globulin Ratio 1.3 (0.9-2) Stl C. diff Tox B Gene (Neg) C1 Esterase Inhibitor 06/14/21 06/14/21 06/14/21 Range/Units 22:00 20:14 17:54 WBC (4.8-10.8) K/uL RBC (4.7-6.1) M/uL Hgb (14.0-18.0) g/dL Hct (42-52) % MCV (80-100) fL MCH (25-34) pg MCHC (32-36) g/dL RDW Std Deviation (36.4-46.3) fL RDW Coeff of Yahaira (11.5-14.5) % Plt Count (130-400) K/uL MPV (7.4-10.4) fL Immature Gran % (Auto) % Neut % (Auto) % Lymph % (Auto) % [place] % (Auto) % Eos % (Auto) % Baso % (Auto) % Neut # (Auto) (1.4-6.5) K/uL Lymph # (Auto) (1.2-3.4) K/uL [place] # (Auto) (0.11-0.59) K/uL Eos # (Auto) (0-0.5) K/uL Baso # (Auto) (0-0.2) K/uL Immature Gran # (Auto) (0.00-0.02) K/uL Sodium (136-145) mmol/L Potassium (3.5-5.1) mmol/L Chloride (98-107) mmol/L Carbon Dioxide (21-32) mmol/L Anion Gap (3-11) BUN (6-23) mg/dl Creatinine (0.6-1.4) mg/dl Est Cr Clr Drug Dosing ml/min Est GFR ( Amer) ml/min Est GFR (Non-Af Amer) ml/min BUN/Creatinine Ratio (10-20) Glucose (70-99(Fasting)) mg/dl POC Glucose 164 H 107 H (70-99) mg/dl Calcium (8.5-10.1) mg/dl Magnesium (1.7-2.4) mg/dl Total Bilirubin (0.2-1.0) mg/dl AST (13-39) U/L ALT (7-52) U/L Alkaline Phosphatase (34-104) U/L Total Protein (6.0-8.3) gm/dl Albumin (3.4-5.0) gm/dl Globulin (2.5-4.0) gm/dl Albumin/Globulin Ratio (0.9-2) Stl C. diff Tox B Gene Negative Cdiff Gene (Neg) C1 Esterase Inhibitor 06/14/21 06/14/21 Range/Units 11:43 11:05 WBC (4.8-10.8) K/uL RBC (4.7-6.1) M/uL Hgb (14.0-18.0) g/dL Hct (42-52) % MCV (80-100) fL MCH (25-34) pg MCHC (32-36) g/dL RDW Std Deviation (36.4-46.3) fL RDW Coeff of Yahaira (11.5-14.5) % Plt Count (130-400) K/uL MPV (7.4-10.4) fL Immature Gran % (Auto) % Neut % (Auto) % Lymph % (Auto) % [place] % (Auto) % Eos % (Auto) % Baso % (Auto) % Neut # (Auto) (1.4-6.5) K/uL Lymph # (Auto) (1.2-3.4) K/uL [place] # (Auto) (0.11-0.59) K/uL Eos # (Auto) (0-0.5) K/uL Baso # (Auto) (0-0.2) K/uL Immature Gran # (Auto) (0.00-0.02) K/uL Sodium (136-145) mmol/L Potassium (3.5-5.1) mmol/L Chloride (98-107) mmol/L Carbon Dioxide (21-32) mmol/L Anion Gap (3-11) BUN (6-23) mg/dl Creatinine (0.6-1.4) mg/dl Est Cr Clr Drug Dosing ml/min Est GFR ( Amer) ml/min Est GFR (Non-Af Amer) ml/min BUN/Creatinine Ratio (10-20) Glucose (70-99(Fasting)) mg/dl POC Glucose 127 H (70-99) mg/dl Calcium (8.5-10.1) mg/dl Magnesium (1.7-2.4) mg/dl Total Bilirubin (0.2-1.0) mg/dl AST (13-39) U/L ALT (7-52) U/L Alkaline Phosphatase (34-104) U/L Total Protein (6.0-8.3) gm/dl Albumin (3.4-5.0) gm/dl Globulin (2.5-4.0) gm/dl Albumin/Globulin Ratio (0.9-2) Stl C. diff Tox B Gene (Neg) C1 Esterase Inhibitor Pending
[2021-06-15] MEDS: METOPROLOL TARTRATE 100 MG TAB PO SCH ×2 (10:40→20:24)
[2021-06-15] MEDS: TAMSULOSIN HCL 0.4 MG CAP PO SCH (10:40)
--- NOTE | 2021-06-15 14:22 | Gastroenterology Progress Note ---
Date of Service June 15, 2021 Assessment & Plan (1) Constipation: (2) Abnormal biliary HIDA scan: Plan: improving with golytely, pain has resolved. recs: --complete another 4L of golytely (has it bedside already) by midnight thursday night --clear liquid diet today and tomorrow, NPO post midnight thursday night --[facility] saturday 06/17 supportive care, IVFs replete lytes prn Admission and Anticipated Discharge Date Admission Date: June 13, 2021 Subjective no events overnight, HIDA scan is positive. his abdominal pains in lowr abdomen have resolved. having multiple bowel movements now with the golytely, has drank about 4L and will be drinking another 4L this weekend prior to colonoscopy on thursday which is planned for the OR with the CCY. labs reviewed. Review of Systems Constitutional: no fever and no chills Respiratory: no cough, no dyspnea and no dyspnea on exertion Cardiovascular: no chest pain and no dyspnea Gastrointestinal: as per Subjective / HPI Psychiatric: no depression and no anxiety Physical Exam Constitutional: WD/WN, vitals as above Respiratory: normal respiratory effort, lungs clear to auscultation Cardiovascular: RRR, no murmur, no edema Gastrointestinal (Abdomen): normal bowel sounds, soft, nontender, no hepatosplenomegaly Musculoskeletal: no lower extremity edema Psychiatric: A+Ox3, euthymic affect Results & Data Results & Data ([facility]) Vital Signs (Past 12 Hours) Vital Signs Temp Pulse Pulse Resp BP BP Pulse Ox 06/15/21 12:17 36.9 C 69 18 165/83 H 98 06/15/21 09:00 70 06/15/21 08:38 36.3 C L 72 20 172/87 H 97 06/15/21 03:04 36.8 C 71 18 157/82 H 94 PG Care Time/CCT Total # of Minutes Spent Total Time Spent with Patient: Total time spent is greater than 50% in coordination of care (as documented) at patient's floor/unit and/or counseling patient: Coding Level of Care Code 35926 Subseq Hosp Care Lvl 3 Diagnoses Constipation K59.00 Abnormal biliary HIDA scan R94.8
[2021-06-16] MEDS: PIPERACILLIN/TAZOBACTAM 3.375 GM in DEXTROSE 5% 100 ML IV SCH ×3 (01:04→18:50)
[2021-06-16] MEDS: NSS + 20MEQ KCL 20 MEQ/1,000 ML BAG IV SCH ×2 (01:04→16:26)
[2021-06-16] MEDS: INSULIN ASPART PER UNIT SC SCH ×5 (01:05→23:50)
[2021-06-16] MEDS: HEPARIN SOD 5,000 UNIT/0.5 ML VIAL SQ SCH ×3 (01:05→18:44)
[2021-06-16 06:53] LABS: Hematocrit (blood only) 31.6 % (42-52); Hemoglobin 10.7 g/dL (14.0-18.0); Mean Corpuscular Hemoglobin 28.5 pg (25-34); Mean Corpuscular Hgb Conc 33.9 g/dL (32-36); Mean Corpuscular Volume 84.3 fL (80-100); Mean Platelet Volume 9.8 fL (7.4-10.4); Platelet Count 197 K/uL (130-400); RDW Coefficient of Variation 13.9 % (11.5-14.5); RDW Standard Deviation 42.6 fL (36.4-46.3); Red Blood Count 3.75 M/uL (4.7-6.1); White Blood Count 6.76 K/uL (4.8-10.8)
[2021-06-16 07:19] LABS: Albumin Globulin Ratio 1.3 (0.9-2); Albumin Level 3.2 gm/dl (3.4-5.0); BUN Creatinine Ratio 3.7 (10-20); Bilirubin,Total 0.4 mg/dl (0.2-1.0); Calcium 8.3 mg/dl (8.5-10.1); Creatinine Clr Calc Pharmacy 121.4 ml/min; Est GFR (African American) 113.5 ml/min; Globulin 2.5 gm/dl (2.5-4.0); Magnesium 1.8 mg/dl (1.7-2.4); Potassium 3.6 mmol/L (3.5-5.1); Total Protein 5.7 gm/dl (6.0-8.3)
[2021-06-16] MEDS: METOPROLOL TARTRATE 100 MG TAB PO SCH ×2 (07:21→20:10)
[2021-06-16] MEDS ORDERED: lisinopril 40 MG TAB PO STA (07:49)
--- NOTE | 2021-06-16 07:53 | Hospitalist Progress Note ---
Date of Service June 16, 2021 Assessment & Plan (1) Acute cholecystitis: Plan: presented with LBO/distension of colon and possible toxic megacolon General surgery was on consult on admission, not surgical abdomen and avoid ex- lax as patient was taking IT [employer] likely causing problems with colonic inertia LFTs were normal but on CTAP on admission GB noted to be distended and with stones --> RUQ performed which showed sludge and thickening Denied RUQ pain in days prior but some mild tenderness to deep palpation RUQ 06/14 and HIDA scan performed HIDA scan c/w cystic duct obstruction/acute cholecystitis. WBC wnl, afebrile BCx NGTD Continues Zosyn Bowel prep for c-scope in AM/LBO on admission and continues to move bowels Pain control, nausea control prn --> Has not needed anything Electrolyte replacement as needed/supportive care to keep K ~4, Mag ~2 NPO after MN for CCY/c-scope in AM, hold heparin tonight (2) Large bowel obstruction: Plan: 56 year old male with IDDM, paroxysmal afib on Eliquis, HTN, HLD, GERD, gastroparesis who presents w/ 5 days of lower abdominal pain secondary to possible large bowel obstruction as suggested by transition point at the descending colon. He does have large stool burden per my read and may benefit from disimpaction. He was admitted to [facility] on 04/20/21 w/ transfer to [facility] for possible ischemic bowel and there was treated for septic shock, DKA, and fecal disimpaction and ultimately thought not to have had ischemic bowel. per CT imaging and prior colonoscopy, lower suspicion for renal pathology or diverticular disease. Patient is s/p open appendectomy in the 90; increased risk of adhesions. CT A/P --> constipation with wall thickening of the colon and pericolonic stranding, most pronounced in the ascending, transverse and descending segments. Distention of the colon measures up to 7 cm. Findings should be correlated clinically to exclude developing toxic megacolon. Cdiff testing negative given recent abx --> Caliber change of the mid descending colon is new from the prior study. Underlying mucosal lesion is considered unlikely, however could be correlated with colonoscopY General Surgery on consult --> GB with stones/distension --> RUQ/HIDA c/w with acute cholecystitis and plans for CCY in AM with Dr Lowery in tandem with c-scope with Dr Alee DEL TOROO after MN HOld Heparin SQ tonight Protonix for GI proph Supportive care/electrolyte replacement/pain control as outlined (3) Urticaria: Plan: Rash formed last evening to back/thigh, states occurs when does not take cetirizine got benadryl x 2 last evening ?urticarial vasculitis vs drug reaction from zosyn (although received this before). states chronic issue, ?stress related urticaria --> ?f/u allergy/immunology, C1 esterase level pending rash completely resolved, occurring prior to admission and ongoing for ~2 years, comes and goes and uses cetirizine at home. benadryl available prn but has not needed this since several days ago (4) DM type 2 (diabetes mellitus, type 2): Plan: - basal+SSI. home PO regimen held BSGs acceptable (5) Paroxysmal atrial fibrillation: Plan: - continue home metoprolol, flecainide - hold home Eliquis in even may need colonoscopy. last dose was AM of 06/12/21 and remains on Heparin SQ, monitoring on telemetry (6) Abnormal CT scan, gallbladder: Plan: - gallbladder air focus on CT abd/pelv; was also present on 04/20/21 CT. No RUQ ttp on exam but will check US for completeness --> RUQ abnormal, HIDA scan ordered and plans for CCY on Thursday with Dr Lowery unless worsens over the weekend (7) Hypertension, essential: Plan: given lisinopril x 1 today Cr stable Hold in AM for surgery, hydralazine available prn no headache/blurry vision or symptoms monitor (8) GERD (gastroesophageal reflux disease): Plan: Protonix while inpatient (9) Hyperlipidemia: Plan: - unknown home statin, currently held (10) Gastroparesis: Plan: - 2/2 DM moving bowels as above (11) BPH (benign prostatic hyperplasia): Plan: - continue home Flomax (12) Abnormal CT scan: Plan: as above (13) Cholelithiasis: Plan: noted on CT RUQ with sludge, HIDA c/w acute madhu. Clear liquids for now, continue zosyn. gen surg for thursday (14) Constipation: Plan: moving bowels, prep ordered by GI Plan: Continued inpatient stay through weekend plans for CCY and c-scope Thursday with general surgery/GI Admission and Anticipated Discharge Date Admission Date: June 13, 2021 Subjective Patient evaluated around 11am. Doing well. Denied pain/need for medications, but does have some tenderness to lower abdomen. Eating clear liquid diet without issues, continues to move bowels and almost completely clear at this point.cdiff negative. No fever, chills, chest pain, shortness of breath, nausea, vomiting, dysuria, or any other issues at this time. Review of Systems Review of Systems: All systems reviewed & are unremarkable except as noted in HPI & below Physical Exam Physical Exam: General: WD/WN male, resting/laying in bed, NAD HEENT; head atraumatic, normocephalic, mmm, trachea midline without deviation Resp: CTAB, no w/c/r, on RA 97% CV: RRR, no m/r/g, calves non-tender, pulses palpable GI: +BS, soft, no guarding/rigidity, slight tenderness to palpation lower abdomen/LLQ, no RUQ tenderness to deep palpation today Psych: AOX3, pleasant and cooperative Neuro: no focal deficit, answering questions appropriately, CN intact grossly Skin: warm, dry Results & Data Results & Data ([facility]) Vital Signs (Past 12 Hours) Vital Signs Temp Pulse Pulse Resp BP Pulse Ox 06/16/21 07:03 36.9 C 69 18 172/93 H 95 06/16/21 03:42 36.7 C 61 18 165/88 H 96 06/16/21 00:36 62 06/15/21 22:39 36.7 C 68 20 139/76 95 Laboratory Results 06/16/21 06/16/21 06/16/21 Range/Units 07:30 06:33 06:33 WBC 6.76 (4.8-10.8) K/uL RBC 3.75 L (4.7-6.1) M/uL Hgb 10.7 L (14.0-18.0) g/dL Hct 31.6 L (42-52) % MCV 84.3 (80-100) fL MCH 28.5 (25-34) pg MCHC 33.9 (32-36) g/dL RDW Std Deviation 42.6 (36.4-46.3) fL RDW Coeff of Yahaira 13.9 (11.5-14.5) % Plt Count 197 (130-400) K/uL MPV 9.8 (7.4-10.4) fL Sodium 138 (136-145) mmol/L Potassium 3.6 (3.5-5.1) mmol/L Chloride 107 (98-107) mmol/L Carbon Dioxide 25 (21-32) mmol/L Anion Gap 6 (3-11) BUN 3 L (6-23) mg/dl Creatinine 0.81 (0.6-1.4) mg/dl Est Cr Clr Drug Dosing 121.4 ml/min Est GFR ( Amer) 113.5 ml/min Est GFR (Non-Af Amer) 98.0 ml/min BUN/Creatinine Ratio 3.7 L (10-20) Glucose 91 (70-99(Fasting)) mg/dl POC Glucose 91 (70-99) mg/dl Calcium 8.3 L (8.5-10.1) mg/dl Magnesium 1.8 (1.7-2.4) mg/dl Total Bilirubin 0.4 (0.2-1.0) mg/dl AST 14 (13-39) U/L ALT 17 (7-52) U/L Alkaline Phosphatase 23 L (34-104) U/L Total Protein 5.7 L (6.0-8.3) gm/dl Albumin 3.2 L (3.4-5.0) gm/dl Globulin 2.5 (2.5-4.0) gm/dl Albumin/Globulin Ratio 1.3 (0.9-2) 06/15/21 06/15/21 06/15/21 Range/Units 20:09 16:49 11:32 WBC (4.8-10.8) K/uL RBC (4.7-6.1) M/uL Hgb (14.0-18.0) g/dL Hct (42-52) % MCV (80-100) fL MCH (25-34) pg MCHC (32-36) g/dL RDW Std Deviation (36.4-46.3) fL RDW Coeff of Yahaira (11.5-14.5) % Plt Count (130-400) K/uL MPV (7.4-10.4) fL Sodium (136-145) mmol/L Potassium (3.5-5.1) mmol/L Chloride (98-107) mmol/L Carbon Dioxide (21-32) mmol/L Anion Gap (3-11) BUN (6-23) mg/dl Creatinine (0.6-1.4) mg/dl Est Cr Clr Drug Dosing ml/min Est GFR ( Amer) ml/min Est GFR (Non-Af Amer) ml/min BUN/Creatinine Ratio (10-20) Glucose (70-99(Fasting)) mg/dl POC Glucose 111 H 107 H 133 H (70-99) mg/dl Calcium (8.5-10.1) mg/dl Magnesium (1.7-2.4) mg/dl Total Bilirubin (0.2-1.0) mg/dl AST (13-39) U/L ALT (7-52) U/L Alkaline Phosphatase (34-104) U/L Total Protein (6.0-8.3) gm/dl Albumin (3.4-5.0) gm/dl Globulin (2.5-4.0) gm/dl Albumin/Globulin Ratio (0.9-2) 06/15/21 Range/Units 07:48 WBC (4.8-10.8) K/uL RBC (4.7-6.1) M/uL Hgb (14.0-18.0) g/dL Hct (42-52) % MCV (80-100) fL MCH (25-34) pg MCHC (32-36) g/dL RDW Std Deviation (36.4-46.3) fL RDW Coeff of Yahaira (11.5-14.5) % Plt Count (130-400) K/uL MPV (7.4-10.4) fL Sodium (136-145) mmol/L Potassium (3.5-5.1) mmol/L Chloride (98-107) mmol/L Carbon Dioxide (21-32) mmol/L Anion Gap (3-11) BUN (6-23) mg/dl Creatinine (0.6-1.4) mg/dl Est Cr Clr Drug Dosing ml/min Est GFR ( Amer) ml/min Est GFR (Non-Af Amer) ml/min BUN/Creatinine Ratio (10-20) Glucose (70-99(Fasting)) mg/dl POC Glucose 116 H (70-99) mg/dl Calcium (8.5-10.1) mg/dl Magnesium (1.7-2.4) mg/dl Total Bilirubin (0.2-1.0) mg/dl AST (13-39) U/L ALT (7-52) U/L Alkaline Phosphatase (34-104) U/L Total Protein (6.0-8.3) gm/dl Albumin (3.4-5.0) gm/dl Globulin (2.5-4.0) gm/dl Albumin/Globulin Ratio (0.9-2) PG Care Time/CCT Total # of Minutes Spent Total Time Spent with Patient: Total time spent is greater than 50% in coordination of care (as documented) at patient's floor/unit and/or counseling patient: Coding Level of Care Code 01511 Subseq Hosp Care Lvl 3 Diagnoses Acute cholecystitis K81.0 Large bowel obstruction K56.609 Urticaria L50.9 DM type 2 (diabetes mellitus, type 2) E11.9 Paroxysmal atrial fibrillation I48.[address] scan, gallbladder R93.2 Hypertension, essential I10 GERD (gastroesophageal reflux disease) K21.9 Hyperlipidemia E78.5 Gastroparesis K31.84 BPH (benign prostatic hyperplasia) N40.[address] scan R93.89 Cholelithiasis K80.20 Constipation K59.00
[2021-06-16] MEDS ORDERED: POTASSIUM CHLORIDE CRTAB 20 MEQ TABCR PO STA (08:02)
[2021-06-16] MEDS ORDERED: MAGNESIUM SULFATE / D5W 1 GM/100 ML BAG IV ONE (08:15)
[2021-06-16] MEDS: FLECAINIDE ACETATE 100 MG TABLET PO SCH ×3 (08:39→20:09)
[2021-06-16] MEDS: INSULIN GLARGINE SOLOSTAR 100 UNITS/ML 3 ML PEN SC SCH ×2 (08:41→20:09)
[2021-06-16] MEDS: TAMSULOSIN HCL 0.4 MG CAP PO SCH (08:42)
[2021-06-16] MEDS: PANTOprazole 40 MG TAB PO SCH (09:39)
--- NOTE | 2021-06-16 12:54 | Surgery Progress Note ---
Date of Service June 16, 2021 Assessment & Plan (1) Abdominal pain of unknown cause: Plan: Patient being prepped for colonoscopy on Thursday His ultrasound of the gallbladder shows some edema and stones HIDA scan demonstrates blockage of cystic duct. He will be set up for probable lap cholecystectomy on Thursday in conjunction with colonoscopy. N.p.o. at midnight tonight for possible procedure tomorrow Admission and Anticipated Discharge Date Admission Date: June 13, 2021 Subjective Continues to do well. He is tolerating his bowel prep. He denies fevers or chills. He denies nausea or vomiting. Physical Exam Physical Exam: Patient awake and alert in no distress his abdomen is flat soft and has minimal tenderness in the lower abdomen No pain in the upper abdomen to palpation Constitutional: well developed and well nourished; no acute distress Neck: trachea midline Gastrointestinal (Abdomen): Inspection/Auscultation: abdomen normal to inspection; abdomen not distended Percussion/Palpation: abdomen soft; abdomen nontender Skin: no rashes Neurologic: moves all extremities Psychiatric: A+Ox3, euthymic affect Results & Data ([facility]) Vital Signs (Past 12 Hours) Vital Signs Temp Pulse Pulse Resp BP Pulse Ox 06/16/21 07:03 36.9 C 69 18 172/93 H 95 06/16/21 07:00 70 06/16/21 03:42 36.7 C 61 18 165/88 H 96
[2021-06-16] MEDS ORDERED: hydrALAZINE HCL 20 MG/ML VIAL IV PRN (16:56)
[2021-06-16] MEDS ORDERED: LORazepam 0.5 MG TAB PO STA (23:33)
[2021-06-17] MEDS: PIPERACILLIN/TAZOBACTAM 3.375 GM in DEXTROSE 5% 100 ML IV SCH ×3 (02:25→17:47)
[2021-06-17] MEDS: INSULIN ASPART PER UNIT SC SCH ×3 (06:12→18:22)
[2021-06-17] MEDS: METOPROLOL TARTRATE 100 MG TAB PO SCH ×2 (08:18→21:51)
[2021-06-17] MEDS: PANTOprazole 40 MG TAB PO SCH (08:18)
[2021-06-17] MEDS: FLECAINIDE ACETATE 100 MG TABLET PO SCH ×2 (08:18→21:51)
[2021-06-17] MEDS: TAMSULOSIN HCL 0.4 MG CAP PO SCH (08:18)
[2021-06-17] MEDS: INSULIN GLARGINE SOLOSTAR 100 UNITS/ML 3 ML PEN SC SCH ×2 (08:19→21:52)
[2021-06-17 08:44] LABS: Albumin Globulin Ratio 1.3 (0.9-2); Albumin Level 3.9 gm/dl (3.4-5.0); BUN Creatinine Ratio 2.4 (10-20); Bilirubin,Total 0.6 mg/dl (0.2-1.0); Calcium 9.1 mg/dl (8.5-10.1); Creatinine Clr Calc Pharmacy 115.6 ml/min; Est GFR (African American) 111.3 ml/min; Magnesium 1.8 mg/dl (1.7-2.4); Potassium 3.7 mmol/L (3.5-5.1); Total Protein 6.9 gm/dl (6.0-8.3)
--- NOTE | 2021-06-17 09:36 | History & Physical Bridge Note ---
Date of Service June 17, 2021 History & Physical Bridge Note I have examined the patient, reviewed the History & Physical and in the interval since the performance of the History & Physical I have noted the following changes of clinical significance: no changes noted proceed with colonoscopy. risks/benefits and procedure discussed with patient, who agrees to proceed
[2021-06-17] MEDS ORDERED: NEOSTIGMINE METHYLSULFATE 1 MG/ML 10ML VIAL ONE (10:35)
[2021-06-17] MEDS ORDERED: MIDAZOLAM HCL 1 MG/ML 2ML VIAL ONE (10:37)
[2021-06-17] MEDS ORDERED: ROCURONIUM BROMIDE 10 MG/ML 5 ML VIAL IV ONE (10:37)
[2021-06-17] MEDS ORDERED: DEXAMETHASONE SOD INJ 4 MG/ML VIAL ONE (10:37)
[2021-06-17] MEDS ORDERED: ONDANSETRON INJ 2 MG/ML 2 ML VIAL ONE (10:37)
[2021-06-17] MEDS ORDERED: fentaNYL citrate 100 MCG/2 ML VIAL ONE (10:37)
[2021-06-17] MEDS ORDERED: GLYCOPYRROLATE 0.2 MG/ML VIAL ONE (10:37)
[2021-06-17] MEDS: NSS + 20MEQ KCL 20 MEQ/1,000 ML BAG IV SCH (11:46)
[2021-06-17] MEDS ORDERED: ePHEDrine sulfate 50 MG/ML AMP IV PRN (12:06)
[2021-06-17] MEDS ORDERED: HYDROmorphone INJ 1 MG/ML SYRINGE IV PRN (12:06)
[2021-06-17] MEDS ORDERED: ONDANSETRON INJ 2 MG/ML 2 ML VIAL IV PRN (12:06)
[2021-06-17] MEDS ORDERED: ATROPINE SULFATE 0.1 MG/ML 10ML SYR IV PRN (12:06)
[2021-06-17] MEDS ORDERED: fentaNYL citrate 100 MCG/2 ML VIAL IV PRN (12:06)
--- NOTE | 2021-06-17 12:11 | Anesthesiology Consultation ---
Date of Service June 17, 2021 Assessment & Plan (1) Encounter for pre-operative examination: Chart Review Chart Review: Acceptable Risk for Surgery and Patient NOT seen in Pre Admission Testing Consults Requested none History Surgery Operation Date: 06/17/21 07:00 Proposed Procedures p Laparoscopic Cholecystectomy - Socrates Lowery MD, FACS s Colonoscopy - Karl Vickers MD Operation Date: 06/17/21 16:30 Proposed Procedures p Colonoscopy Dr. Vickers - Karl Vickers MD Height/Weight Height: 6 ft Weight: 99.2 kg Allergies Allergy/AdvReac Type Severity Reaction Status Date / Time No Known Allergies Allergy Verified 06/12/21 21:53 Medications Home Medications Medication Instructions Recorded Confirmed Last Taken flecainide 150 mg tablet 150 mg PO BID #180 tab 11/04/18 06/12/21 06/12/21 08:00 lisinopril 40 mg tablet 40 mg PO QAM #90 tab 11/04/18 06/12/21 06/12/21 metformin 1,000 mg tablet 1,000 mg PO BID #180 tab 11/04/18 06/12/21 06/12/21 08:00 metoprolol tartrate 100 mg tablet 100 mg PO BID #180 tab 11/04/18 06/12/21 06/12/21 08:00 finasteride 1 mg tablet 1 mg PO QAM 12/04/18 06/12/21 06/12/21 magnesium 250 mg tablet 250 mg PO QAM 12/04/18 06/12/21 06/12/21 tamsulosin 0.4 mg capsule 0.4 mg PO QAM 12/04/18 06/12/21 06/12/21 cetirizine 10 mg tablet 10 mg PO QAM 03/16/20 06/12/21 06/12/21 apixaban 5 mg tablet (Eliquis) 5 mg PO BID 06/25/20 06/12/21 06/12/21 08:00 cholecalciferol (vitamin D3) 25 25 mcg PO BID 06/25/20 06/12/21 06/12/21 08:00 mcg (1,000 unit) tablet omega 0-jwm-atm-fish oil 1,000 mg 1 cap PO BID 06/25/20 06/12/21 06/12/21 08:00 (120 mg-180 mg) capsule (Fish Oil) semaglutide (Ozempic) 0.25 mg SUBCUT WK 06/25/20 06/12/21 06/08/21 pantoprazole 40 mg tablet,delayed 40 mg PO DAILY 30 Days #30 tab 07/03/20 06/12/21 06/12/21 release (Protonix) Unknown Statin 0.5 tab PO DAILY 04/20/21 06/12/21 06/12/21 insulin detemir U-100 100 unit/mL 5 unit SUBCUT HS 06/12/21 06/12/21 06/11/21 (3 mL) subcutaneous pen Active Medications Generic Name Dose Route Start Last Admin Trade Name Freq PRN Reason Stop Dose Admin Flecainide Acetate 150 mg 06/13/21 09:00 06/17/21 08:18 Flecainide Acetate 100 Mg Tablet PO 07/13/21 08:59 150 mg BID SAMANTHA Administration Heparin Sodium (Porcine) 5,000 units 06/13/21 08:00 06/16/21 18:44 Heparin Sod 5,000 Unit/0.5 Ml Vial SQ 07/13/21 07:59 Not Given Q8H SAMANTHA Hydromorphone HCl 0.5 mg 06/13/21 18:25 06/13/21 23:29 Hydromorphone Inj 0.5 Mg/0.5 Ml Syr IV 06/27/21 18:24 0.5 mg Q6H PRN Administration Pain Piperacillin Sod/Tazobactam 115 mls @ 28.75 mls/hr 06/13/21 10:00 06/17/21 10:54 Sod 3.375 gm/ Dextrose IV 06/23/21 09:59 28.8 mls/hr Q8H SAMANTHA Administration Protocol Potassium Chloride/Sodium Chloride 20 meq in 1,000 mls @ 50 mls/hr 06/14/21 08:00 06/17/21 11:46 Normal Saline W/20 Meq Kcl IV 07/14/21 07:59 50 mls/hr .Q20H SAMANTHA Administration Protocol Insulin Aspart 0 units 06/14/21 06:00 06/17/21 06:12 Insulin Aspart Per Unit SC 07/14/21 05:59 Not Given Q6 SAMANTHA Insulin Glargine 5 units 06/13/21 09:00 06/17/21 08:19 Insulin Glargine Solostar 100 Units/Ml 3 Ml Pen SC 07/13/21 08:59 3 units BID SAMANTHA Administration Lisinopril 40 mg 06/13/21 09:00 06/13/21 08:42 Lisinopril 40 Mg Tab PO 07/13/21 08:59 40 mg QAM SAMANTHA Administration Metoprolol Tartrate 100 mg 06/13/21 09:00 06/17/21 08:18 Metoprolol Tartrate 100 Mg Tab PO 07/13/21 08:59 100 mg BID SAMANTHA Administration Morphine Sulfate 2 mg 06/13/21 06:10 06/14/21 02:02 Morphine Sulfate 2 Mg/Ml Carp IV 06/27/21 06:09 2 mg Q3H PRN Administration severe pain 7-10 Ondansetron HCl 4 mg 06/13/21 06:10 06/14/21 02:06 Ondansetron Inj 2 Mg/Ml 2 Ml Vial IV 07/13/21 06:09 4 mg Q6H PRN Administration Nausea Pantoprazole Sodium 40 mg 06/13/21 09:00 06/17/21 08:18 Pantoprazole 40 Mg Tab PO 07/13/21 08:59 40 mg DAILY SAMANTHA Administration Tamsulosin HCl 0.4 mg 06/13/21 09:00 06/17/21 08:18 Tamsulosin Hcl 0.4 Mg Cap PO 07/13/21 08:59 0.4 mg QAM SAMANTHA Administration Past Medical History Medical History Atrial fibrillation dx 1994 > h/o cardioversion x 2; follows with [facility] Cardio/ Eliquis BPH (benign prostatic hyperplasia) Diabetic neuropathy DM type 2 (diabetes mellitus, type 2) IDDM GERD (gastroesophageal reflux disease) TELIDA (hard of hearing) HTN (hypertension) Hyperlipidemia Hospitalized Mar 2021: Hospital Course (1) Abdominal pain of unknown cause: Differential - ischemic bowel vs. acute constipation vs. idiopathic urticarial bowel edema - Onset of pain ` 1 hour after eating, elevated WBC with lacte- lipase 103 remaining LFTs normal - firm, rebound tenderness- General surgical consult - recommends transfer for concerns of bowel ischemia - support - transfer to [place]- (2) Shock: Diff as above- bowel ischemia vs. idiopathic urticarial bowel edema - Epinephrine drip for BP support - Continue stress dose steroids - continue with volume resuscitation - lactate increase 3.2-4.5 - continue Zosyn (3) Idiopathic urticaria: Unsure of his diagnosis as he follows at the [facility] - he describes these as hives that pop up on any part of his body at any given time or temperature - he has never had this before with food He was admitted to [facility] on 04/20/21 w/ transfer to [facility] for possible ischemic bowel and there was treated for septic shock, DKA, and fecal disimpaction and ultimately thought not to have had ischemic bowel. Patient is stable. Past Family History Family History Mother Atrial fibrillation Grandfather (Maternal) Coronary heart disease Other No family history of adverse response to anesthesia No pertinent family history Past Surgical History Surgical History History of appendectomy History of cardioversion x 2 History of carpal tunnel release RT/LEFT History of colonoscopy History of esophagogastroduodenoscopy (EGD) History of surgery on arm LEFT ULNAR NERVE TRANSPOSITION Social History Smoking Status: Former smoker tobacco type: cigarettes Do You Dip or Chew Tobacco: No Hx Alcohol Use: Yes Alcohol type: beer alcohol intake frequency: a few times a month Hx Substance Use: No substance use type: does not use Physical Exam Vital Signs Last Vital Signs Temp 36.6 C 06/17/21 11:25 Pulse 59 L 06/17/21 11:25 Resp 16 06/17/21 11:25 BP 177/93 H 06/17/21 11:25 Pulse Ox 99 06/17/21 11:25 Testing Laboratory Results 06/16/21 06:33 06/17/21 08:04 Urine Color Yellow 06/13/21 10:45 Urine Appearance Clear (Clear) 06/13/21 10:45 Urine pH 5.0 (4.5-7.5) 06/13/21 10:45 Ur Specific Sandy 1.021 (1.000-1.030) 06/13/21 10:45 Urine Protein Negative (Negative) 06/13/21 10:45 Urine Glucose (UA) Negative (Negative) 06/13/21 10:45 Urine Ketones Trace (Negative) H 06/13/21 10:45 Urine Nitrite Negative (Negative) 06/13/21 10:45 Ur Leukocyte Esterase Negative (Negative) 06/13/21 10:45 06/12/21 22:30 Aerobic Blood Culture - Preliminary Blood No growth in Aerobic bottle after 48 hours. Anaerobic Blood Culture - Preliminary No growth in Anaerobic bottle after 48 hours. 06/12/21 22:28 Aerobic Blood Culture - Preliminary Blood No growth in Aerobic bottle after 48 hours. Anaerobic Blood Culture - Preliminary No growth in Anaerobic bottle after 48 hours. 06/17/21 06/17/21 12:03 06:11 POC Glucose 98 86 Electrocardiogram Date: 06/13/21 DICTATED BY:Manuelito John MD Test Reason : Blood Pressure : / mmHG Vent. Rate : 082 BPM Atrial Rate : 082 BPM P-R Int : 152 ms QRS Dur : 096 ms QT Int : 396 ms P-R-T Axes : 004 -06 006 degrees QTc Int : 462 ms Normal sinus rhythm Nonspecific T wave abnormality Abnormal ECG When compared with ECG of 20-APR-2021 18:03, Left bundle branch block is no longer Present Confirmed by Manuelito John ([id number]) on 06/14/2021 12:11:05 PM Chest X-Ray Date: 04/20/21 XR chest 1V portable CLINICAL HISTORY: Line placement. COMPARISON STUDY: Chest CT performed earlier today. FINDINGS: There is no pneumothorax following placement of a right internal jugular central line. Catheter tip projects over the right atrium. Cardiomegaly is noted. There is no evidence for pulmonary edema. Linear left basilar opacities favor atelectasis. No pleural effusion is identified. IMPRESSION: No pneumothorax following placement of a right internal jugular central line. Catheter tip projects over the right atrium.
--- NOTE | 2021-06-17 12:21 | History & Physical Bridge Note ---
Date of Service June 17, 2021 History & Physical Bridge Note I have examined the patient, reviewed the History & Physical and in the interval since the performance of the History & Physical I have noted the following changes of clinical significance: no changes noted Patient is for laparoscopic cholecystectomy, possible open operation We are coordinating with Dr. Vickers and likely going ahead with colonoscopy also
[2021-06-17] MEDS ORDERED: diphenhydrAMINE 50 MG/ML VIAL ONE (12:22)
[2021-06-17] MEDS ORDERED: PROPOFOL IV EMULSION 10 MG/ML 20 ML VIAL IV ONE (12:22)
[2021-06-17] MEDS ORDERED: LABETALOL HCL IV 5 MG/ML 20ML IV PRN (12:28)
--- NOTE | 2021-06-17 13:28 | Procedure Note ---
Procedure Note Date of Service June 17, 2021 Note GI brief procedure note/post op note colonoscopy findings: colonic stricture noted in the descending colon, dilated to 18 mm with wire guided balloon; just proximal to this stricture was another severe stricture 60 cm from the anus, unable to advance past this even with a pediatric colonoscope, biopsies taken. procedure aborted. recs: --surgical evaluation for colonic resection, consider transfer to tertiary care center --miralax 2-3 times daily --supportive care --diet to be determined after CCY which is going on now Karl Vickers MD Gastroenterology Coding
[2021-06-17] MEDS ORDERED: BUPIVACAINE 0.5 % 5 MG/1 ML MPF 30ML VIAL ONE (13:34)
--- NOTE | 2021-06-17 13:38 | GI REPORT ---
Patient Name: Patrick Jones Procedure Date: 06/17/2021 12:57 PM Date of : 1965 Admit Type: Inpatient Age: 56 Gender: Male Attending MD: Karl Vickers MD Procedure: Colonoscopy Providers: Karl Vickers MD Referring MD: Sherman Deluca M.d. Indications: Abnormal CT of the GI tract Medicines: Monitored Anesthesia Care Complications: No immediate complications. Estimated blood loss: None. Estimated Blood Loss: Estimated blood loss: none. Procedure: Pre-Anesthesia Assessment: - Prior Anticoagulants: The patient has taken no previous anticoagulant or antiplatelet agents. - ASA Grade Assessment: III - A patient with severe systemic disease. After I obtained informed consent, the scope was passed under direct vision. Throughout the procedure, the patient's blood pressure, pulse, and oxygen saturations were monitored continuously. The Colonoscope was introduced through the anus with the intention of advancing to the cecum. The scope was advanced to the descending colon before the procedure was aborted. Medications were given. The colonoscopy was performed without difficulty. The patient tolerated the procedure well. The quality of the bowel preparation was fair. Findings: A benign-appearing, intrinsic moderate stenosis was found in the descending colon and was traversed after dilation. A TTS dilator was passed through the scope. Dilation with an 18-19-20 mm colonic balloon dilator was performed to 18 mm. The dilation site was examined following endoscope reinsertion and showed moderate mucosal disruption. Estimated blood loss: none. --just proximal to this stricture was another severe stricture 60 cm from the anus, unable to advance past this even with a pediatric colonoscope, biopsies taken. procedure aborted. Impression: - Preparation of the colon was fair. - Stricture in the descending colon. Dilated. - No specimens collected. Recommendation: - Return patient to [facility] for ongoing care. --surgical evaluation for colonic resection, consider transfer to tertiary care center --miralax 2-3 times daily --supportive care --diet to be determined after CCY which is going on now Karl Vickers MD 06/17/2021 1:37:46 PM This report has been signed electronically. Note Initiated On: 06/17/2021 12:57 PM Number of Addenda: 0 I attest to the content of the Intraoperative Record and orders documented therein, exceptions below {[id number]}
[2021-06-17] MEDS ORDERED: ePHEDrine sulfate 50 MG/ML AMP ONE (13:42)
[2021-06-17] MEDS ORDERED: VASOPRESSIN 20 UNIT/ML VIAL ONE (13:54)
[2021-06-17] MEDS ORDERED: ACETAMINOPHEN 1,000 MG/100 ML VIAL IV ONE ×2 (14:11→14:18)
--- NOTE | 2021-06-17 14:11 | Post Operative Brief Note ---
PG Immediate Post Op with CF Date of Surgery June 17, 2021 Pre & Post Diagnosis Operation Date: 06/17/21 07:00 Pre-Op Diagnosis: Descending Colon Stricture, Cholelithiasis Post-Op Diagnosis: Descending Colon Stricture, Cholelithiasis Operation Date: 06/17/21 16:30 <No data on this case meets the specified criteria> I identified the patient and participated in the time-out.: Yes Procedure Operation Date: 06/17/21 07:00 Actual Procedures p Laparoscopic Cholecystectomy(Not Applicable) - Socrates Lowery MD, FACS s Colonoscopy, Colon Dilation, Biopsy of Descending Colon(Not Applicable) - Karl Vickers MD Operation Date: 06/17/21 16:30 <No data on this case meets the specified criteria> Surgeon Socrates Lowery MD, FACS Material Assembler Jojo Ackerman Estimated Blood Loss 5 Findings Consistent with Post-Op Diagnosis Patient with sludge within his gallbladder likely causing cystic duct obstruction Specimens Specimen Description: A. Gallbladder Colonoscopy specimens handled by endoscopy staff
--- NOTE | 2021-06-17 14:43 | Anesthesiology Progress Note ---
Date of Service June 17, 2021 Anesthesia Post Procedure Vital Signs Vital Signs: Temp Pulse Pulse Pulse Resp BP BP 06/17/21 14:35 64 14 181/96 H 06/17/21 14:28 36.0 C L 67 18 182/97 H 06/17/21 12:23 36.7 C 69 18 196/103 H 06/17/21 11:25 36.6 C 59 L 16 177/93 H 06/17/21 08:00 68 06/17/21 07:52 37.0 C 66 16 178/90 H 06/17/21 03:00 36.9 C 69 18 171/88 H 06/17/21 00:03 66 06/16/21 23:32 36.8 C 66 18 168/86 H 06/16/21 19:07 36.7 C 69 20 151/83 H 06/16/21 17:22 70 152/78 H 06/16/21 15:21 36.7 C 63 20 174/92 H 182/98 H Pulse Ox 06/17/21 14:35 100 06/17/21 14:28 99 06/17/21 12:23 98 06/17/21 11:25 99 06/17/21 08:00 06/17/21 07:52 97 06/17/21 03:00 96 06/17/21 00:03 06/16/21 23:32 96 06/16/21 19:07 97 06/16/21 17:22 06/16/21 15:21 97 Pain Intensity Bilateral Lower Abdomen: Pain Intensity: 2 Transfer of Care Handoff Completed per policy Notes Mental Status: alert / awake / arousable and participated in evaluation Patient Amnestic to Procedure: Yes Nausea / Vomiting: adequately controlled Pain: adequately controlled Airway Patency, RR, SpO2: stable & adequate BP & HR: stable & adequate Hydration State: stable & adequate Anesthetic Complications: no major complications apparent and Pt Satisfied with anesthetic care
--- NOTE | 2021-06-17 15:46 | Operative Report (OR) ---
DATE OF OPERATION: 06/17/2021. NAME OF OPERATION: Laparoscopic cholecystectomy. PREOPERATIVE DIAGNOSIS: Obstructed cystic duct with cholelithiasis. POSTOPERATIVE DIAGNOSIS: Obstructed cystic duct with cholelithiasis. STAFF SURGEON: Socrates Lowery MD. RHEUMATOLOGY NURSE: Leeanne Ackerman PA-C. ANESTHESIA: General. DESCRIPTION OF PROCEDURE: The patient was in the operating room and underwent colonoscopy. He was t hen prepped and draped for laparoscopic cholecystectomy. Pneumatic stockings and orogastric tube wer e placed. My assistant elementary teacher helped with prepping, draping, removal of the gallbladder and closure of the wounds. 0.5% plain Marcaine was used to anesthetize all incisions. Incision was made above the umbi licus, carrying dissection down into the abdomen, placing a Veress needle, then producing pneumoperit oneum with an 11 mm port placed at the umbilicus. Under visualization, three 5 mm ports were placed, one cephalad and two laterally. Gallbladder was distended. It was aspirated of bile, which was slu dge. Dissection was carried out to the gabrielle hepatis, identifying the cystic duct and cystic artery. These were clipped and transected and the gallbladder dissected away from the liver bed in the usua l fashion, placed in an Endobag. After appropriate hemostasis and irrigation, the Endobag was remove d through the umbilical site. Umbilical fascia closed using 0 PDS suture. The skin was reapproximat ed using subcuticular 4-0 Monocryl with Dermabond. The patient was transferred to recovery room in s table condition. Job ID: [id number]
[2021-06-17] MEDS: HEPARIN SOD 5,000 UNIT/0.5 ML VIAL SQ SCH ×2 (16:15→21:53)
--- NOTE | 2021-06-17 20:34 | Hospitalist Progress Note ---
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 WBC wnl, afebrile BCx NGTD Continues Zosyn Bowel prep for c-scope in AM/LBO on admission and continues to move bowels Pain control, nausea control prn --> Has not needed anything Electrolyte replacement as needed/supportive care to keep K ~4, Mag ~2 NPO colonoscopy results showed: Impression: - Preparation of the colon was fair. - Stricture in the descending colon. Dilated. - No specimens collected. Recommendation: - [facility]. --surgical evaluation for colonic resection, consider transfer to tertiary care center --miralax 2-3 times daily --supportive care --diet to be determined after CCY which is going on now (2) Large bowel obstruction: Plan: 56 year old male with IDDM, paroxysmal afib on Eliquis, HTN, HLD, GERD, gastroparesis who presents w/ 5 days of lower abdominal pain secondary to possible large bowel obstruction as suggested by transition point at the descending colon. He does have large stool burden per my read and may benefit from disimpaction. He was admitted to [facility] on 04/20/21 w/ transfer to [facility] for possible ischemic bowel and there was treated for septic shock, DKA, and fecal disimpaction and ultimately thought not to have had ischemic bowel. per CT imaging and prior colonoscopy, lower suspicion for renal pathology or diverticular disease. Patient is s/p open appendectomy in the s; increased risk of adhesions. CT A/P --> constipation with wall thickening of the colon and pericolonic stranding, most pronounced in the ascending, transverse and descending segments. Distention of the colon measures up to 7 cm. Findings should be correlated clinically to exclude developing toxic megacolon. Cdiff testing negative given recent abx --> Caliber change of the mid descending colon is new from the prior study. Underlying mucosal lesion is considered unlikely, however could be correlated with colonoscopY General Surgery on consult --> GB with stones/distension --> RUQ/HIDA c/w with acute cholecystitis and plans for CCY in AM with Dr Lowery in tandem with c-scope with Dr Alee LUCERO Protonix for GI proph Supportive care/electrolyte replacement/pain control as outlined D/W surgery and case management possible transfer to tertiary center tomorrow (3) Urticaria: Plan: Rash formed last evening to back/thigh, states occurs when does not take cetirizine got benadryl x 2 last evening ?urticarial vasculitis vs drug reaction from zosyn (although received this before). states chronic issue, ?stress related urticaria --> ?f/u allergy/immunology, C1 esterase level pending rash completely resolved, occurring prior to admission and ongoing for ~2 years, comes and goes and uses cetirizine at home. benadryl available prn but has not needed this since several days ago (4) DM type 2 (diabetes mellitus, type 2): Plan: - basal+SSI. home PO regimen held BSGs acceptable (5) Paroxysmal atrial fibrillation: Plan: - continue home metoprolol, flecainide - hold home Eliquis in even may need colonoscopy. last dose was AM of 06/12/21 and remains on Heparin SQ, monitoring on telemetry (6) Abnormal CT scan, gallbladder: Plan: - gallbladder air focus on CT abd/pelv; was also present on 04/20/21 CT. No RUQ ttp on exam but will check US for completeness --> RUQ abnormal, HIDA scan ordered and plans for CCY on Thursday with Dr Lowery unless worsens over the weekend (7) Hypertension, essential: Plan: given lisinopril x 1 today Cr stable Hold in AM for surgery, hydralazine available prn no headache/blurry vision or symptoms (8) GERD (gastroesophageal reflux disease): Plan: Protonix while inpatient (9) Hyperlipidemia: Plan: - unknown home statin, currently held (10) Gastroparesis: Plan: - 2/2 DM moving bowels as above (11) BPH (benign prostatic hyperplasia): Plan: - continue home Flomax (12) Abnormal CT scan: Plan: as above (13) Cholelithiasis: Plan: noted on CT RUQ with sludge, HIDA c/w acute madhu. Clear liquids for now, continue zosyn. gen surg for thursday (14) Constipation: Plan: moving bowels, prep ordered by GI Plan: Continued inpatient stay through weekend plans for CCY and c-scope Thursday with general surgery/GI Admission and Anticipated Discharge Date Admission Date: June 13, 2021 Subjective 56 yo male reports no new symptoms. Review of Systems Review of Systems: All systems reviewed & are unremarkable except as noted in HPI & below Physical Exam Physical Exam: General: WD/WN male, resting/laying in bed, NAD HEENT; head atraumatic, normocephalic, mmm, trachea midline without deviation Resp: CTAB, no w/c/r, CV: RRR, no m/r/g, calves non-tender, pulses palpable GI: +BS, soft, no guarding/rigidity, slight tenderness to palpation lower abdomen/LLQ, no RUQ tenderness to deep palpation today Psych: AOX3, pleasant and cooperative Neuro: no focal deficit, answering questions appropriately, CN intact grossly Skin: warm, dry Results & Data Results & Data ([facility]) Vital Signs (Past 12 Hours) Vital Signs Temp Pulse Pulse Resp BP BP Pulse Ox 06/17/21 18:00 36.8 C 78 18 154/78 H 98 06/17/21 17:00 36.9 C 78 18 158/78 H 96 06/17/21 16:30 36.8 C 78 18 155/74 H 97 06/17/21 16:00 36.9 C 76 18 164/78 H 97 06/17/21 15:30 36.8 C 78 18 162/76 H 98 06/17/21 15:15 36.2 C L 70 13 163/89 H 94 06/17/21 15:05 71 14 170/90 H 95 06/17/21 14:55 69 12 165/88 H 95 06/17/21 14:45 67 15 171/95 H 100 06/17/21 14:35 64 14 181/96 H 100 06/17/21 14:28 36.0 C L 67 18 182/97 H 99 06/17/21 12:23 36.7 C 69 18 196/103 H 98 06/17/21 11:25 36.6 C 59 L 16 177/93 H 99 PG Care Time/CCT Total # of Minutes Spent Total Time Spent with Patient: Total time spent is greater than 50% in coordination of care (as documented) at patient's floor/unit and/or counseling patient: Coding Level of Care Code 86055 Subseq Hosp Care Lvl 3 Diagnoses Acute cholecystitis K81.0 Large bowel obstruction K56.609 Urticaria L50.9 DM type 2 (diabetes mellitus, type 2) E11.9 Paroxysmal atrial fibrillation I48.[address] scan, gallbladder R93.2 Hypertension, essential I10 GERD (gastroesophageal reflux disease) K21.9 Hyperlipidemia E78.5 Gastroparesis K31.84 BPH (benign prostatic hyperplasia) N40.[address] scan R93.89 Cholelithiasis K80.20 Constipation K59.00 Time Spent (min) 35
[2021-06-17] MEDS ORDERED: LORazepam 2 MG/1 ML VIAL IV STA (23:43)
[2021-06-18] MEDS: INSULIN ASPART PER UNIT SC SCH ×4 (00:51→18:06)
[2021-06-18] MEDS: PIPERACILLIN/TAZOBACTAM 3.375 GM in DEXTROSE 5% 100 ML IV SCH ×2 (00:52→09:51)
--- NOTE | 2021-06-18 06:19 | Surgery Progress Note ---
Date of Service June 18, 2021 Assessment & Plan (1) Status post laparoscopic cholecystectomy: Plan: Patient also found with descending colonic stricture x2 He seems to be doing well from his laparoscopic cholecystectomy-taking no pain medication His abdomen is flat and soft Underlying problem is his colonic strictures-these seem to have developed since his CT in March where he had colitis The patient may require a subtotal colectomy at some point he does not require an urgent operation He wants to do everything he can to avoid surgery-he would like to try diet with stool softeners and mineral oil May need a special diet He will need follow-up with colorectal surgery which we will try to arrange today-I am going to try to discuss his case With the [facility] via help from case management Patient will be started on PPN today I also discussed with him the possibility of a PICC line with TPN if necessary- he wants to hold off for now Admission and Anticipated Discharge Date Admission Date: June 13, 2021 Results & Data ([facility]) Vital Signs (Past 12 Hours) Vital Signs Temp Pulse Pulse Resp BP Pulse Ox 06/18/21 03:12 36.7 C 82 16 186/98 H 96 06/18/21 01:00 90 06/17/21 23:00 36.8 C 87 18 167/91 H 97 06/17/21 19:00 36.9 C 88 18 184/99 H 96 PG Care Time/CCT Total # of Minutes Spent Total Time Spent with Patient: Total time spent is greater than 50% in coordination of care (as documented) at patient's floor/unit and/or counseling patient: Coding Level of Care Code None Diagnoses Status post laparoscopic cholecystectomy Z90.49
[2021-06-18] MEDS ORDERED: TPN/PPN CONSULT PHARMACY PRN (07:00)
[2021-06-18] MEDS: FLECAINIDE ACETATE 100 MG TABLET PO SCH ×2 (08:19→21:55)
[2021-06-18] MEDS: METOPROLOL TARTRATE 100 MG TAB PO SCH ×2 (08:19→21:56)
[2021-06-18] MEDS: PANTOprazole 40 MG TAB PO SCH (08:20)
[2021-06-18] MEDS: HEPARIN SOD 5,000 UNIT/0.5 ML VIAL SQ SCH ×3 (08:20→21:56)
[2021-06-18] MEDS: TAMSULOSIN HCL 0.4 MG CAP PO SCH (08:20)
[2021-06-18 08:22] LABS: BUN Creatinine Ratio 3.2 (10-20); Calcium 8.9 mg/dl (8.5-10.1); Est GFR (African American) 104.5 ml/min; Est GFR (Non-African American) 90.2 ml/min; Magnesium 1.7 mg/dl (1.7-2.4); Phosphorus 3.3 mg/dl (2.5-4.9); Potassium 3.6 mmol/L (3.5-5.1)
[2021-06-18] MEDS: NSS + 20MEQ KCL 20 MEQ/1,000 ML BAG IV SCH (08:25)
[2021-06-18] MEDS: INSULIN GLARGINE SOLOSTAR 100 UNITS/ML 3 ML PEN SC SCH ×2 (08:26→21:57)
[2021-06-18] MEDS: lisinopril 40 MG TAB PO SCH (09:49)
--- NOTE | 2021-06-18 10:21 | Gastroenterology Progress Note ---
Date of Service June 18, 2021 Assessment & Plan (1) Colonic stricture: Plan: -Await pathology; suspect inflammatory strictures -Needs evaluation by colorectal surgery for a subtotal colectomy; Patient is currently agreeable to a discussion with surgery but is not open to surgical intervention. -Patient is interested only in utilizing mineral oil for constipation, but would advise Miralax 17 gm BID, Dulcolax prn, Colace 100 mg BID. Admission and Anticipated Discharge Date Admission Date: June 13, 2021 Supervising Physician Co-Signing Physician Notes I personally evaluated the patient and agree with the findings as documented by Corry Alvarado, FELICIA Exam: Constitutional: WD/WN, vitals as above General: EOM intact bilaterally Neck: normal visual inspection Respiratory: normal respiratory effort, lungs clear to auscultation Cardiovascular: RRR, no murmur, no edema Gastrointestinal: nondistended, soft, nontender Musculoskeletal: no cyanosis, head normal to inspection Skin: no rashes, warm and dry Neurologic: moves all extremities Psychiatric: A and O x3, euthymic affect pathology shows active chronic colitis, this in combination with his stricture suggests IBD. highly recommend colorectal surgery evaluation for surgical tx at this time, our office will help arrange with [facility]. Subjective Patient is a 56 yo male with multiple colonic strictures noted during colonoscopy on 06/17/21. He has discussed colorectal surgery evaluation with general surgery. He is not interested in surgery at this time. He's really only amenable to utilizing mineral oil as opposed to other bowel regimens. He denies pain at present. Review of Systems Gastrointestinal: no abdominal pain Psychiatric: no problem reported Physical Exam Constitutional: well developed Respiratory: normal respiratory effort Cardiovascular: Rate/Rhythm: regular rate Gastrointestinal (Abdomen): Inspection/Auscultation: abdomen normal to inspection; abdomen not distended Psychiatric: Orientation: alert and oriented x 3 Results & Data Results & Data ([facility]) Vital Signs (Past 12 Hours) Vital Signs Temp Pulse Pulse Resp BP Pulse Ox Pulse Ox 06/18/21 08:03 36.7 C 75 18 189/92 H 96 06/18/21 07:24 80 06/18/21 07:00 95 06/18/21 03:12 36.7 C 82 16 186/98 H 96 06/18/21 01:00 90 06/17/21 23:00 36.8 C 87 18 167/91 H 97 PG Care Time/CCT Total # of Minutes Spent Total Time Spent with Patient: Total time spent is greater than 50% in coordination of care (as documented) at patient's floor/unit and/or counseling patient: Coding Level of Care Code 98963 Subseq Hosp Care Lvl 3 Diagnoses Colonic stricture K56.699
[2021-06-18] MEDS: HYDROmorphone INJ 0.5 MG/0.5 ML SYR IV PRN ×2 (16:24→21:56)
--- NOTE | 2021-06-18 21:04 | Hospitalist Progress Note ---
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 WBC wnl, afebrile BCx NGTD Continues Zosyn Bowel prep for c-scope in AM/LBO on admission and continues to move bowels Pain control, nausea control prn --> Has not needed anything Electrolyte replacement as needed/supportive care to keep K ~4, Mag ~2 NPO colonoscopy results showed: Impression: - Preparation of the colon was fair. - Stricture in the descending colon. Dilated. - No specimens collected. Recommendation: - [facility]. --surgical evaluation for colonic resection, consider transfer to tertiary care center --miralax 2-3 times daily --supportive care --diet to be determined after CCY which is going on now Patient will folllowup with [facility] More as outpatient. Will advance diet and monitor overnight. IF TOLERATES IT, THEN PATIENT WILL BE DISCHARGED HOME (2) Large bowel obstruction: Plan: 56 year old male with IDDM, paroxysmal afib on Eliquis, HTN, HLD, GERD, gastroparesis who presents w/ 5 days of lower abdominal pain secondary to possib le large bowel obstruction as suggested by transition point at the descending colon. He does have large stool burden per my read and may benefit from disimpaction. He was admitted to [facility] on 04/20/21 w/ transfer to [facility] for possible ischemic bowel and there was treated for septic shock, DKA, and fecal disimpaction and ultimately thought not to have had ischemic bowel. per CT imaging and prior colonoscopy, lower suspicion for renal pathology or diverticular disease. Patient is s/p open appendectomy in the 90s; increased risk of adhesions. CT A/P --> constipation with wall thickening of the colon and pericolonic stranding, most pronounced in the ascending, transverse and descending segments. Distention of the colon measures up to 7 cm. Findings should be correlated clinically to exclude developing toxic megacolon. Cdiff testing negative given recent abx --> Caliber change of the mid descending colon is new from the prior study. Underlying mucosal lesion is considered unlikely, however could be correlated with colonoscopY General Surgery on consult --> GB with stones/distension --> RUQ/HIDA c/w with acute cholecystitis and plans for CCY in AM with Dr Lowery in tandem with c-scope with Dr Vickers NPO Protonix for GI proph Supportive care/electrolyte replacement/pain control as outlined D/W surgery and case management (3) Urticaria: Plan: Rash formed last evening to back/thigh, states occurs when does not take cetirizine got benadryl x 2 last evening ?urticarial vasculitis vs drug reaction from zosyn (although received this before). states chronic issue, ?stress related urticaria --> ?f/u allergy/immunology, C1 esterase level pending rash completely resolved, occurring prior to admission and ongoing for ~2 years, comes and goes and uses cetirizine at home. benadryl available prn but has not needed this since several days ago (4) DM type 2 (diabetes mellitus, type 2): Plan: - basal+SSI. home PO regimen held BSGs acceptable (5) Paroxysmal atrial fibrillation: Plan: - continue home metoprolol, flecainide - hold home Eliquis in even may need colonoscopy. last dose was AM of 06/12/21 and remains on Heparin SQ, monitoring on telemetry (6) Abnormal CT scan, gallbladder: Plan: - gallbladder air focus on CT abd/pelv; was also present on 04/20/21 CT. No RUQ ttp on exam but will check US for completeness --> RUQ abnormal, HIDA scan ordered and plans for CCY on Thursday with Dr Lowery unless worsens over the weekend (7) Hypertension, essential: Plan: given lisinopril x 1 today Cr stable Hold in AM for surgery, hydralazine available prn no headache/blurry vision or symptoms (8) GERD (gastroesophageal reflux disease): Plan: Protonix while inpatient (9) Hyperlipidemia: Plan: - unknown home statin, currently held (10) Gastroparesis: Plan: - 2/2 DM moving bowels as above (11) BPH (benign prostatic hyperplasia): Plan: - continue home Flomax (12) Abnormal CT scan: Plan: as above (13) Cholelithiasis: Plan: noted on CT RUQ with sludge, HIDA c/w acute madhu. Clear liquids for now, continue zosyn. gen surg for thursday (14) Constipation: Plan: moving bowels, prep ordered by GI Plan: Continued inpatient stay through weekend plans for CCY and c-scope Thursday with general surgery/GI Admission and Anticipated Discharge Date Admission Date: June 13, 2021 Subjective Patient reports feeling well. He is asing to eat. Review of Systems Review of Systems: All systems reviewed & are unremarkable except as noted in HPI & below Physical Exam Physical Exam: General: WD/WN male, resting/laying in bed, NAD HEENT; head atraumatic, normocephalic, mmm, trachea midline without deviation Resp: CTAB, no w/c/r, CV: RRR, no m/r/g, calves non-tender, pulses palpable GI: +BS, soft, no guarding/rigidity, slight tenderness to palpation lower abdomen/LLQ, no RUQ tenderness to deep palpation today Psych: AOX3, pleasant and cooperative Neuro: no focal deficit, answering questions appropriately, CN intact grossly Skin: warm, dry Results & Data Results & Data ([facility]) Vital Signs (Past 12 Hours) Vital Signs Temp Pulse Pulse Resp BP Pulse Ox 06/18/21 18:55 36.9 C 69 18 147/67 H 97 06/18/21 16:20 36.9 C 66 18 152/78 H 97 06/18/21 14:55 69 06/18/21 12:00 63 172/92 H 06/18/21 10:57 36.9 C 73 20 184/102 H 97 PG Care Time/CCT Total # of Minutes Spent Total Time Spent with Patient: Total time spent is greater than 50% in coordination of care (as documented) at patient's floor/unit and/or counseling patient: Coding Level of Care Code 79035 Subseq Hosp Care Lvl 2 Diagnoses Acute cholecystitis K81.0 Large bowel obstruction K56.609 Urticaria L50.9 DM type 2 (diabetes mellitus, type 2) E11.9 Paroxysmal atrial fibrillation I48.[address] scan, gallbladder R93.2 Hypertension, essential I10 GERD (gastroesophageal reflux disease) K21.9 Hyperlipidemia E78.5 Gastroparesis K31.84 BPH (benign prostatic hyperplasia) N40.[address] scan R93.89 Cholelithiasis K80.20 Constipation K59.00
[2021-06-18] MEDS ORDERED: MELATONIN 3 MG TAB PO PRN (23:33)
[2021-06-19 00:01] LABS: C1 Esterase Inhibitor 29 mg/dL (21-39)
[2021-06-19] MEDS: INSULIN ASPART PER UNIT SC SCH ×3 (00:17→11:57)
[2021-06-19] MEDS: HYDROmorphone INJ 0.5 MG/0.5 ML SYR IV PRN (04:03)
[2021-06-19] MEDS: NSS + 20MEQ KCL 20 MEQ/1,000 ML BAG IV SCH (04:51)
[2021-06-19] MEDS: HEPARIN SOD 5,000 UNIT/0.5 ML VIAL SQ SCH (07:33)
[2021-06-19] MEDS: TAMSULOSIN HCL 0.4 MG CAP PO SCH (07:34)
[2021-06-19] MEDS: FLECAINIDE ACETATE 100 MG TABLET PO SCH (07:34)
[2021-06-19] MEDS: lisinopril 40 MG TAB PO SCH (07:34)
[2021-06-19] MEDS: METOPROLOL TARTRATE 100 MG TAB PO SCH (07:34)
[2021-06-19] MEDS: PANTOprazole 40 MG TAB PO SCH (07:34)
--- NOTE | 2021-06-19 08:14 | Surgery Progress Note ---
Date of Service June 19, 2021 Assessment & Plan (1) Colonic stricture: Plan: Patient also status post laparoscopic cholecystectomy Patient is a CT patient and must go through his PCP for scheduling Plan is to attempt to discharge patient home on a bowel regime I discussed with his PCP Jaime Frazier at [facility] clinic his need for colorectal surgery follow-up We discussed referral for an appointment at [facility] with [facility] colorectal surgery Mr. Lopez is to make the appointment and they are to call the patient He can follow-up with me in the surgical office within 2 to 3 weeks as he has no sutures to remove Admission and Anticipated Discharge Date Admission Date: June 13, 2021 Results & Data ([facility]) Vital Signs (Past 12 Hours) Vital Signs Temp Pulse Pulse Resp BP BP Pulse Ox 06/19/21 07:35 36.6 C 70 16 164/84 H 95 06/19/21 02:54 36.7 C 62 18 159/81 H 98 06/18/21 23:16 36.9 C 62 18 164/83 H 96 06/18/21 22:09 78 PG Care Time/CCT Total # of Minutes Spent Total Time Spent with Patient: Total time spent is greater than 50% in coordination of care (as documented) at patient's floor/unit and/or counseling patient: Coding Level of Care Code None Diagnoses Colonic stricture K56.699
[2021-06-19] MEDS: INSULIN GLARGINE SOLOSTAR 100 UNITS/ML 3 ML PEN SC SCH (08:27)
[2021-06-19 09:25] LABS: Hematocrit (blood only) 37.2 % (42-52); Hemoglobin 12.4 g/dL (14.0-18.0); Mean Corpuscular Hemoglobin 28.1 pg (25-34); Mean Corpuscular Hgb Conc 33.3 g/dL (32-36); Mean Corpuscular Volume 84.2 fL (80-100); Mean Platelet Volume 9.8 fL (7.4-10.4); Platelet Count 280 K/uL (130-400); RDW Coefficient of Variation 13.9 % (11.5-14.5); RDW Standard Deviation 42.5 fL (36.4-46.3); Red Blood Count 4.42 M/uL (4.7-6.1); White Blood Count 9.53 K/uL (4.8-10.8)
--- NOTE | 2021-07-30 11:40 | Discharge Summary ---
Date of Service 06/19/2021 Admission HPI Per Admitting Provider 56 year old male with IDDM, parox afib on eliquis, HTN, HLD, GERD, gastroparesis and recent 04/20-04/27/21 ([facility] hospital admission for similar symptoms who presents w/ 4-5 days of worsening lower abd pain near midline. No radiation to back. 10/10 at worst. Currently 2-3 after morphine. Bowel patterns have been on and off in past month. He has had decreased flatus. He has only had small BMs. His abd pain is a cramping pain, intermittent. It is better w/ rest and not affected by eating. Mild nausea, but no vomiting. Denies bloody or black stools. Denies fhx colon cancer. No chest pain, sob, fever, chills, or urinary symptoms. He has had fatigue since his last hospitalization. Follows [facility]. Hx of appendectomy in 1992. He has not been using a bowel regimen regularly. Denies VTE or OK or stroke. He was seen at [facility] on 04/20/21 and transferred to [facility] for concerns of ischemic bowel. At [facility], he had lactic acidosis and required pressors. He was treated for DKA. He was fecal disimpacted in the ED. He then had colitis on imaging, so was treated w/ IV abx. He improved after 1 week on medical treatment and was discharged home. ED course: Morphine, zofran. CT abd/pelv statrad excerpt: "Markedly distended as cending and transverse colon with thickening of the colon wall of the transverse colon. This thickening is nonspecific and may be infectious or inflammatory. There is a transition point of the descending colon, cannot exclude mechanical obstruction secondary to neoplasm." Per gen surg eval, not acute abdomen. Principal Diagnosis acute cholecystitis Discharge Exam General: WD/WN male, resting/laying in bed, NAD HEENT; head atraumatic, normocephalic, mmm, trachea midline without deviation Resp: CTAB, no w/c/r, CV: RRR, no m/r/g, calves non-tender, pulses palpable GI: +BS, soft, no guarding/rigidity, slight tenderness to palpation lower abdomen/LLQ, no RUQ tenderness to deep palpation today Psych: AOX3, pleasant and cooperative Neuro: no focal deficit, answering questions appropriately, CN intact grossly Skin: warm, dry Discharge Data Allergies Allergy/AdvReac Type Severity Reaction Status Date / Time No Known Allergies Allergy Verified 07/11/21 10:18 Consultations 06/13/21 02:18 ED Decision to Admit Stat 06/13/21 04:46 Consult General Surgery Stat 06/13/21 06:10 Consult Gastroenterology Routine Procedures Performed Operation Date: 06/17/21 07:00 Actual Procedures p Laparoscopic Cholecystectomy(Not Applicable) - Socrates Lowery MD, FACS s Colonoscopy, Colon Dilation, Biopsy of Descending Colon(Not Applicable) - Karl Vickers MD Operation Date: 06/17/21 16:30 <No data on this case meets the specified criteria> Ordered Studies 06/12/21 22:09 CT abd pelvis wo con Urgent 06/13/21 09:24 US liver Routine Hospital Course (1) Acute cholecystitis: presented with LBO/distension of colon and possible toxic megacolon General surgery was on consult on admission, not surgical abdomen and avoid ex- lax as 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 WBC wnl, afebrile BCx NGTD Continues Zosyn Bowel prep for c-scope in AM/LBO on admission and continues to move bowels Pain control, nausea control prn --> Has not needed anything Electrolyte replacement as needed/supportive care to keep K ~4, Mag ~2 NPO colonoscopy results showed: Impression: - Preparation of the colon was fair. - Stricture in the descending colon. Dilated. - No specimens collected. Recommendation: - Return patient to [facility] for [facility] care. --surgical evaluation for colonic resection, consider transfer to tertiary care center --miralax 2-3 times daily --supportive care --diet to be determined after CCY which is going on now Patient will folllowup with Winston Davey as outpatient. Patient tolerated diet overnight and will be discharged home. (2) Large bowel obstruction: 56 year old male with IDDM, paroxysmal afib on Eliquis, HTN, HLD, GERD, gastroparesis who presents w/ 5 days of lower abdominal pain secondary to possible large bowel obstruction as suggested by transition point at the descending colon. He does have large stool burden per my read and may benefit from disimpaction. He was admitted to [facility] on 04/20/21 w/ transfer to [facility] for possible ischemic bowel and there was treated for septic shock, DKA, and fecal disimpaction and ultimately thought not to have had ischem ic bowel. per CT imaging and prior colonoscopy, lower suspicion for renal pathology or diverticular disease. Patient is s/p open appendectomy in the 90s; increased risk of adhesions. CT A/P --> constipation with wall thickening of the colon and pericolonic stranding, most pronounced in the ascending, transverse and descending segments. Distention of the colon measures up to 7 cm. Findings should be correlated clinically to exclude developing toxic megacolon. Cdiff testing negative given recent abx --> Caliber change of the mid descending colon is new from the prior study. Underlying mucosal lesion is considered unlikely, however could be correlated with colonoscopY General Surgery on consult --> GB with stones/distension --> RUQ/HIDA c/w with acute cholecystitis and plans for CCY in AM with Dr Lowery in tandem with c-scope with Dr Alee Mcleod for GI proph Supportive care/electrolyte replacement/pain control as outlined D/W surgery and case management (3) Urticaria: Rash formed last evening to back/thigh, states occurs when does not take cetirizine got benadryl x 2 last evening ?urticarial vasculitis vs drug reaction from zosyn (although received this before). states chronic issue, ?stress related urticaria --> ?f/u allergy/immunology, C1 esterase level pending rash completely resolved, occurring prior to admission and ongoing for ~2 years, comes and goes and uses cetirizine at home. benadryl available prn but has not needed this since several days ago (4) DM type 2 (diabetes mellitus, type 2): - basal+SSI. home PO regimen held BSGs acceptable (5) Paroxysmal atrial fibrillation: - continue home metoprolol, flecainide - hold home Eliquis in even may need colonoscopy. last dose was AM of 06/12/21 and remains on Heparin SQ, monitoring on telemetry (6) Abnormal CT scan, gallbladder: - gallbladder air focus on CT abd/pelv; was also present on 04/20/21 CT. No RUQ ttp on exam but will check US for completeness --> RUQ abnormal, HIDA scan ordered and plans for CCY on Thursday with Dr Lowery unless worsens over the weekend (7) Hypertension, essential: given lisinopril x 1 today Cr stable Hold in AM for surgery, hydralazine available prn no headache/blurry vision or symptoms (8) GERD (gastroesophageal reflux disease): Protonix while inpatient (9) Hyperlipidemia: - unknown home statin, currently held (10) Gastroparesis: - 2/2 DM moving bowels as above (11) BPH (benign prostatic hyperplasia): - continue home Flomax (12) Abnormal CT scan: as above (13) Cholelithiasis: noted on CT RUQ with sludge, HIDA c/w acute madhu. Clear liquids for now, continue zosyn. gen surg for thursday (14) Constipation: moving bowels, prep ordered by GI Continued inpatient stay through weekend plans for CCY and c-scope Thursday with general surgery/GI Total Time Total Time Spent Total Time Spent (In Minutes): 35 Discharge Plan Discharge Items Patient Disposition: Home - Self-Care Reason For Visit: LOWER ABD PAIN, LBO Discharge Diagnosis: colonic stricture Activity: Per Instructions section Activity Comment: light activity for 4 weeks Lifting: No more than 10 pounds Bathing Comment: may shower; no soaking in tubs/pools Sexual Activity: When tolerated Exercise/Sports: Wait until after follow-up appointment Exercise Comment: wait 4 weeks Driving/Machine Use: no driving while taking any narcotics for pain Non-emergency contact: Primary Care Provider Call non-emergency contact if: you have any medication questions, your symptoms worsen, your pain is not controlled, your pain is worsening, your pain is concerning for you, you have a fever, your temperature is above 101.5, your wound has increased redness, your wound has increased drainage and your wound pain has increased Follow-up/Referrals: Socrates Lowery MD, FACS [Physician] - Jaime Lopez, PREASSEMBLER AND INSPECTOR-C [Primary Care Provider] - Diet: Low Fiber Addtl Attending Provider Instructions: SPECIAL CARE INSTRUCTIONS: * Cover incisions and change daily for comfort/drainage. * May use ibuprofen for pain as tolerated. * Expect some swelling and bruising. Call your doctor if: * Temperature above 101 degrees * Pain not relieved by pain medicine ordered * There is increased drainage or redness from any incision * You have any unanswered questions or concerns [phone]. FOLLOW UP VISIT: If not already scheduled, please call the office for a follow-up visit. OFFICE PHONE NUMBER: Dr. Lowery Office will recommend tylenol around the clock for pain. Will hold off ibuprofen or advil due to risk of bleeding Pending Studies at Discharge: Yes Studies:: surgical pathology Stand-Alone Forms: My [facility] [employer], Smoking Cessation Medications and DC Order Prescriptions: Continued pantoprazole [Protonix] 40 mg tablet,delayed release (DR/EC) 40 mg PO DAILY 30 Days Qty: 30 RF: 2 lisinopril 40 mg tablet 40 mg PO QAM Qty: 90 RF: 0 metformin 1,000 mg tablet 1,000 mg PO BIDM Qty: 180 RF: 0 tamsulosin 0.4 mg Capsule 0.4 mg PO QAM RF: 0 cetirizine 10 mg Tablet 10 mg PO QAM RF: 0 Eliquis 5 mg Tablet 5 mg PO BID RF: 0 Ozempic 0.25 mg or 0.5 mg(2 mg/1.5 mL) Pen Injector 1 mg SUBCUT WK RF: 0 insulin detemir U-100 100 unit/mL (3 mL) Insulin Pen 5 unit SUBCUT HS RF: 0 No Action atorvastatin 10 mg Tablet 5 mg PO HS RF: 0 sildenafil [Viagra] 100 mg Tablet 50 mg PO DAILY PRN (Reason: Erectile Dysfunction) RF: 0 flecainide 100 mg Tablet 150 mg PO Q12H RF: 0 metoprolol tartrate 50 mg Tablet 50 mg PO BID RF: 0 folic acid 1 mg Tablet 1 mg PO DAILY RF: 0 finasteride 5 mg Tablet 5 mg PO DAILY RF: 0 buspirone 15 mg Tablet 7.5 mg PO BID RF: 0 cinnamon bark [Cinnamon] 500 mg Capsule 500 mg PO DAILY RF: 0 pregabalin [Lyrica] 225 mg Capsule 225 mg PO BID RF: 0 diclofenac sodium 1 % Gel 2 g TOPICAL QID PRN (Reason: Pain) RF: 0 acetaminophen [Tylenol 8 Hour] 650 mg tablet extended release 650 mg PO Q8H PRN (Reason: PAIN/FEVER) RF: 0 magnesium oxide 400 mg (241.3 mg magnesium) Tablet 400 mg PO BID Qty: 60 RF: 0 Discharge Orders: Discharge Order (Routine); Ordered 06/19/21 Ordered By: Sherman Deluca Admission Data Admit Date/Time: 06/13/21 03:56 Attending Provider: Sherman Delcua Admit Provider: Michael Cornell Primary Care Provider: Jaime Lopez Other Providers: [facility] ; Maria L Chavez ; Socrates Lowery ; Karl Vickers Other Interventions: Discharge Summary Assessment (RN) Last Done: 06/19/21 12:39 Coding Level of Care Code D/C DAY MANAGEMENT >30 MINS Diagnoses Acute cholecystitis K81.0 Large bowel obstruction K56.609 Urticaria L50.9 DM type 2 (diabetes mellitus, type 2) E11.9 Paroxysmal atrial fibrillation I48.[address] scan, gallbladder R93.2 Hypertension, essential I10 GERD (gastroesophageal reflux disease) K21.9 Hyperlipidemia E78.5 Gastroparesis K31.84 BPH (benign prostatic hyperplasia) N40.[address] scan R93.89 Cholelithiasis K80.20 Constipation K59.00 Time Spent (min) 35
== END 2021-06-19 14:10 | disposition home or self-care (01) | DRG 418 ==
LOC: ED 20:01 → SUATTDRO 06-13 03:56 → EDINP 06-13 03:56 → 2W 06-13 06:17

== ENCOUNTER 2021-06-26 13:06 | Inpatient (IN) ==
[2021-06-26 13:47] LABS: Basophils # (auto) 0.05 K/uL (0-0.2); Basophils % (auto) 0.5 %; Eosinophils # (auto) 0.35 K/uL (0-0.5); Eosinophils % (auto) 3.4 %; Hematocrit (blood only) 36.4 % (42-52); Hemoglobin 12.4 g/dL (14.0-18.0); Immature Granulocytes # (auto) 0.02 K/uL (0.00-0.02); Immature Granulocytes % (auto) 0.2 %; Lymphocytes # (auto) 3.51 K/uL (1.2-3.4); Mean Corpuscular Hgb Conc 34.1 g/dL (32-36); Mean Corpuscular Volume 82.2 fL (80-100); Mean Platelet Volume 9.9 fL (7.4-10.4); Monocytes # (auto) 0.55 K/uL (0.11-0.59); Monocytes % (auto) 5.3 %; Neutrophils # (auto) 5.83 K/uL (1.4-6.5); Neutrophils % (auto) 56.6 %; Platelet Count 298 K/uL (130-400); RDW Coefficient of Variation 13.4 % (11.5-14.5); RDW Standard Deviation 40.8 fL (36.4-46.3); Red Blood Count 4.43 M/uL (4.7-6.1); White Blood Count 10.31 K/uL (4.8-10.8)
[2021-06-26] MEDS ORDERED: STAT IV Infusion **Titration per Protocol STA ×2 (14:10→14:38)
[2021-06-26] MEDS ORDERED: AMIODARONE IV BOLUS & DRIP IV STA (14:10)
[2021-06-26] MEDS ORDERED: AMIODARONE / D5W 150 MG/100 ML BAG IV STA (14:10)
[2021-06-26] MEDS ORDERED: 0.2 MICRON FILTER SET 1 EA IV ONE (14:10)
[2021-06-26] MEDS ORDERED: AMIODARONE 150MG / 100ML D5W IV ONE (14:11)
[2021-06-26] MEDS ORDERED: ASPIRIN 81 MG CHEW PO STA (14:14)
[2021-06-26 14:16] LABS: INR 1.1 (0.9-1.1); Partial Thromboplastin Ratio 1.1; Partial Thromboplastin Time 30.2 Seconds (21.0-31.0); Prothrombin Time 11.8 Seconds (9.0-12.0)
[2021-06-26] MEDS ORDERED: AMIODARONE / D5W 360 MG/200 ML BAG IV ONE (14:21)
[2021-06-26 14:23] LABS: Albumin Globulin Ratio 1.4 (0.9-2); Albumin Level 3.7 gm/dl (3.4-5.0); BUN Creatinine Ratio 12.3 (10-20); Bilirubin,Total 0.4 mg/dl (0.2-1.0); Calcium 8.8 mg/dl (8.5-10.1); Creatinine Clr Calc Pharmacy 121.3 ml/min; Est GFR (African American) 113.5 ml/min; Globulin 2.7 gm/dl (2.5-4.0); Potassium 4.1 mmol/L (3.5-5.1); Total Protein 6.4 gm/dl (6.0-8.3)
[2021-06-26] MEDS ORDERED: dilTIAZem HCL 125 MG in DEXTROSE 5% 100 ML IV SCH (14:45)
[2021-06-26] MEDS ORDERED: OPTIRAY 320 125ml IV ONE (14:55)
--- NOTE | 2021-06-26 15:18 | CT Scan Report ---
CT ANGIOGRAPHY OF THE CHEST, PULMONARY EMBOLUS PROTOCOL CLINICAL HISTORY: Shortness of breath. Chest pain. Evaluate for pulmonary embolus. COMPARISON STUDY: Chest CT April 20, 2021. Chest radiograph April 20, 2021. TECHNIQUE: Following IV administration of 120 mL of Optiray, helical axial images of the chest were o btained utilizing the pulmonary embolus protocol. Maximal intensity projections and sagittal and cor onal reformats were viewed on an independent 3D workstation. IV contrast was administered without co mplication. Automated exposure control was utilized for the study. A dose lowering technique was ut ilized adhering to the principles of ALARA. CT DOSE: 561.96 mGycm FINDINGS: No pulmonary emboli are identified. There is no thoracic aortic dissection. Mild cardiomeg vera is noted. No enlarged thoracic lymph nodes are present. There is no pneumothorax or pleural effus ion. No consolidation to suggest pneumonia is noted. Mild groundglass opacities favor atelectasis. No acute fractures within the visualized bony thorax. Visualized portions of the upper abdomen demonstr ate mild dilatation of the chest portion of the transverse colon with mild pericolonic stranding. Dis tention of this portion of the colon is decreased when compared to abdominal CT of June 12, 2021. IMPRESSION: 1. No pulmonary emboli identified. 2. No acute process within the chest. ACT 112: Negative or not required by law. Electronically signed by: Harrison Ramsey M.D. 06/26/2021 3:16 PM
--- NOTE | 2021-06-26 15:19 | XRay Report ---
XR chest 1V portable HISTORY: 56 years-old Male cp acute atypical chest pain COMPARISON: CTA chest 06/26/2021 TECHNIQUE: Portable AP view of the chest FINDINGS: The cardiac silhouette is mildly enlarged. There is no pneumothorax, pleural effusion, airspace conso lidation or overt pulmonary edema. Bones of the chest appear grossly intact. IMPRESSION: No acute process. ACT 112: Negative or not required by law. The above report was generated using voice recognition software. It may contain grammatical, syntax o r spelling errors. Electronically signed by: Adrian Lopez M.D. 06/26/2021 3:17 PM
[2021-06-26] MEDS: MAGNESIUM SULFATE / D5W 1 GM/100 ML BAG IV SCH ×5 (15:31→22:33)
--- NOTE | 2021-06-26 16:55 | History & Physical Report ---
Date of Service June 26, 2021 Assessment & Plan (1) Atrial fibrillation: Plan: PAF on flecainide and Eliquis - Likely related to low magnesium- converted in EMD with magnesium replacement and is now in NSR - HScTNI negative x2 - CTA of the chest negative for PE - Continue with Flecainide he is on 150mg PO BID - max dose - If he returns back to Afib- amiodarone is an option that can provide synergistic response with flecainide - Magnesium supplementation may help however likely to contribute to diarrhea as well (2) Colonic stricture: Plan: As per HPI has follow up with colo-rectal- reports doing well at home - he has settled on mineral oil for his laxitive of choice- BID (3) Diarrhea: Plan: Medication induced with mineral oil or possible post cholyecestomy - Until evaluated by colorectal avoid constipation or reversing- may tolerate dose adjustment or addition of cholestyramine (4) Hyperlipidemia: Plan: Continue with statin (5) DM type 2 (diabetes mellitus, type 2): Plan: continue with basal and bolus insulin - aspart sliding scale CF 20 with carb ratio 1:12 (6) BPH (benign prostatic hyperplasia): Plan: Continue with Finasteride (7) GERD (gastroesophageal reflux disease): Plan: Continue with PPI History of Present Illness Primary Care Provider: Jaime Lopez, BRICK MAKER-C 56 YOM with medical history of: PAF (on Flecainide and Eliquis), idiopathic urticaria, constipation, colonic strictures, s/p cholecystectomy (06/17/21), DMII (insulin dependant), HTN, GERD, HLD, BPH. Patient returns to the EMD today for atrial fibrillation with rates 124-114 and feeling flushed and tired. Patient states this started this morning, this is not associated with any dyspnea, chest pain, arm pain or back pain. Patient is taking mineral oil for his issues with constipation leading to bowel obstructions. He has 3-4 loose stools per day. In the EMD the patient had CTA of the chest performed which is negative for any PE, he had an ECG done and routine labs to include HScTNI. His labs returned with low a magnesium of 1.3- he was ordered replacement and during replacement of his mag he converted back to NSR. He has not missed any doses of his Flecainide, metoprolol, or his Eliquis. Patient was to be started on amiodarone drip by the EMD in light of his intolerance to Afib - as he has converted with a likely cause will hold on further anti-arrhythmics. He will be admitted to the PCU will continue with magnesium replacement with goal between 2-2.5. Draw complete electrolyte panel with ionized calcium and phos. His HGB and HCT are increased from previous as well. Overall the patient is recovering well from his previous admission. His surgical sites are well healing and he is without pain or symptoms. He is following with his spinner fixer at the [place] with a referral to Winston SANTILLAN at [facility] on for evaluation for ablation. For his colonic stricture he had Colonoscopy performed in May where he had a dilation and was noted to have another severe stricture- he is now on mineral oil BID as above- he has an appointment with [place] through [facility] next week. For his idiopathic urticaria has a referral to property coordinator coming up as well- today he presents without this rash. COVID test on admission is: NEGATIVE Allergies Allergy/AdvReac Type Severity Reaction Status Date / Time No Known Allergies Allergy Verified 06/26/21 15:20 Home Medications Medication Instructions Recorded Confirmed Type lisinopril 40 mg tablet 40 mg PO QAM #90 tab 11/04/18 06/26/21 History metformin 1,000 mg tablet 1,000 mg PO BIDM #180 tab 11/04/18 06/26/21 History tamsulosin 0.4 mg capsule 0.4 mg PO QAM 12/04/18 06/26/21 History cetirizine 10 mg tablet 10 mg PO QAM 03/16/20 06/26/21 History apixaban 5 mg tablet (Eliquis) 5 mg PO BID 06/25/20 06/26/21 History semaglutide (Ozempic) 1 mg SUBCUT WK 06/25/20 06/26/21 History pantoprazole 40 mg tablet,delayed 40 mg PO DAILY 30 Days #30 tab 07/03/20 06/26/21 Rx release (Protonix) insulin detemir U-100 100 unit/mL 5 unit SUBCUT HS 06/12/21 06/26/21 History (3 mL) subcutaneous pen acetaminophen 650 mg 650 mg PO Q8H PRN 06/26/21 06/26/21 History tablet,extended release (Tylenol 8 Hour) atorvastatin 10 mg tablet 5 mg PO HS 06/26/21 06/26/21 History buspirone 15 mg tablet 7.5 mg PO BID 06/26/21 06/26/21 History cinnamon bark 500 mg capsule 500 mg PO DAILY 06/26/21 06/26/21 History (Cinnamon) diclofenac sodium 1 % topical gel 2 g TOPICAL QID PRN 06/26/21 06/26/21 History finasteride 5 mg tablet 5 mg PO DAILY 06/26/21 06/26/21 History flecainide 100 mg tablet 150 mg PO Q12H 06/26/21 06/26/21 History folic acid 1 mg tablet 1 mg PO DAILY 06/26/21 06/26/21 History metoprolol tartrate 50 mg tablet 50 mg PO BID 06/26/21 06/26/21 History pregabalin 225 mg capsule (Lyrica) 225 mg PO BID 06/26/21 06/26/21 History sildenafil 100 mg tablet (Viagra) 50 mg PO DAILY PRN 06/26/21 06/26/21 History Past Med/Surg History Medical History (Updated 06/26/21 @ 17:27 by FLORINDA Kaur) Atrial fibrillation dx 1994 > h/o cardioversion x 2; follows with [facility] Cardio/ Eliquis BPH (benign prostatic hyperplasia) Diabetic neuropathy DM type 2 (diabetes mellitus, type 2) IDDM GERD (gastroesophageal reflux disease) [place] (hard of hearing) HTN (hypertension) Hyperlipidemia Surgical History History of appendectomy History of cardioversion x 2 History of carpal tunnel release RT/LEFT History of colonoscopy History of esophagogastroduodenoscopy (EGD) History of surgery on arm LEFT ULNAR NERVE TRANSPOSITION Hx laparoscopic cholecystectomy (06/17/21) Laparoscopic cholecystectomy. Dr. Lowery Family History Mother Atrial fibrillation Grandfather (Maternal) Coronary heart disease Other No family history of adverse response to anesthesia No pertinent family history Social History Smoking Status: Never smoker Age Started Using Tobacco: 19; Age Quit Using Tobacco: 42; Years Smoked: 23; Number of Years Since Quit: 12; Second Hand Exposure: No; Hx Alcohol Use: Yes Alcohol type: beer Hx Substance Use: No Preferred Language: Japanese Communication Ability: Effective Waste Collection Driver Required: No Beliefs That Will Affect Care: None marital status: Current Living Situation: Alone How many Children do You have: 2 Feels Safe at Home: Yes Assistive Devices: None Review of Systems 2 Review of Systems: REVIEW OF SYSTEMS: Constitutional: No fever, sweats or chills Eyes: No diplopia, no worsening or blurred vision ENT: normal hearing, no trouble swallowing Respiratory: No cough, sputum, dyspnea at rest or on exertion Cardiovascular: (+) fatigue and palpitations Abdomen: (+) medication induced diarrhea, No pain, nausea, vomiting, con stipation Musculoskeletal: No joint pain, calf pain, swelling Neurologic: No weakness, numbness/tingling, or balance problems Psychiatric: No anxiety or depression Skin: No rash or itch Physical Exam Physical Exam: PHYSICAL EXAM: General: awake, alert, no apparent distress Head: Normocephalic, atraumatic ENT: PERRL, EOMI, no pharyngeal exudate, mucous membranes moist Neuro: AAO x 3, speech clear and appropriate, strength intact bilaterally 5/5, sensation intact and equal all extremities and dermatomes, no pronator drift Chest: equal rise and fall of the chest, no accessory muscle use, no heaves or thrills, Clear to auscultation, on room air, Cardiac: Regular rate and rhythm, telemetry reviewed- afib with LBB- which he has with elevated rates and afib, skin warm dry, cap refill <3 seconds, peripheral pulses +2 no JVD, no murmur, no edema GI: NABS x 4 quadrants, soft, nontender to palpation, no rebound, guarding or tenderness : Spontaneously voiding, no pain, no CVA tenderness, Extremities: Normal inspection, no peripheral edema or erythema, calfs nontender to palpation Psych: Normal mood and affect Skin: no rash, well healed in incisions to abdomen Results & Data Results & Data ([facility]) Vital Signs (Past 12 Hours) Vital Signs Temp Pulse Pulse Resp BP BP Pulse Ox 06/26/21 16:00 24 137/80 98 06/26/21 15:45 68 14 129/71 91 06/26/21 15:36 103 H 18 142/74 H 98 06/26/21 15:30 76 14 142/74 H 96 06/26/21 15:16 33 H 118/86 97 06/26/21 15:05 124 H 18 145/73 H 99 06/26/21 15:00 103 H 16 145/73 H 98 06/26/21 14:52 108 H 21 153/82 H 99 06/26/21 14:31 18 147/87 H 97 06/26/21 14:30 95 H 22 06/26/21 14:16 117 H 20 148/76 H 98 06/26/21 14:06 118 H 119 H 20 111/65 111/65 97 06/26/21 14:00 131 H 21 97 06/26/21 13:37 104 H 20 109/78 98 06/26/21 13:06 37.1 C 114 H 24 113/86 97 Laboratory Results Abnormal lab results 06/26/21 06/26/21 06/26/21 Range/Units 13:20 13:20 13:20 RBC 4.43 L (4.7-6.1) M/uL Hgb 12.4 L (14.0-18.0) g/dL Hct 36.4 L (42-52) % Lymph # (Auto) 3.51 H (1.2-3.4) K/uL Sodium 135 L (136-145) mmol/L Glucose 174 H (70-99(Fasting)) mg/dl Magnesium 1.3 L (1.7-2.4) mg/dl Alkaline Phosphatase 28 L (34-104) U/L Diagnostic Findings Home Medications lisinopril 40 mg tablet 40 mg PO QAM #90 tab 11/04/18 [History Confirmed 06/26/21] metformin 1,000 mg tablet 1,000 mg PO BIDM #180 tab 11/04/18 [History Confirmed 06/26/21] tamsulosin 0.4 mg capsule 0.4 mg PO QAM 12/04/18 [History Confirmed 06/26/21] cetirizine 10 mg tablet 10 mg PO QAM 03/16/20 [History Confirmed 06/26/21] apixaban 5 mg tablet (Eliquis) 5 mg PO BID 06/25/20 [History Confirmed 06/26/21] semaglutide (Ozempic) 1 mg SUBCUT WK 06/25/20 [History Confirmed 06/26/21] pantoprazole 40 mg tablet,delayed release (Protonix) 40 mg PO DAILY 30 Days #30 tab 07/03/20 [Rx Confirmed 06/26/21] insulin detemir U-100 100 unit/mL (3 mL) subcutaneous pen 5 unit SUBCUT HS 06/12/21 [History Confirmed 06/26/21] acetaminophen 650 mg tablet,extended release (Tylenol 8 Hour) 650 mg PO Q8H PRN 06/26/21 [History Confirmed 06/26/21] atorvastatin 10 mg tablet 5 mg PO HS 06/26/21 [History Confirmed 06/26/21] buspirone 15 mg tablet 7.5 mg PO BID 06/26/21 [History Confirmed 06/26/21] cinnamon bark 500 mg capsule (Cinnamon) 500 mg PO DAILY 06/26/21 [History Confirmed 06/26/21] diclofenac sodium 1 % topical gel 2 g TOPICAL QID PRN 06/26/21 [History Confirmed 06/26/21] finasteride 5 mg tablet 5 mg PO DAILY 06/26/21 [History Confirmed 06/26/21] flecainide 100 mg tablet 150 mg PO Q12H 06/26/21 [History Confirmed 06/26/21] folic acid 1 mg tablet 1 mg PO DAILY 06/26/21 [History Confirmed 06/26/21] metoprolol tartrate 50 mg tablet 50 mg PO BID 06/26/21 [History Confirmed 06/26/21] pregabalin 225 mg capsule (Lyrica) 225 mg PO BID 06/26/21 [History Confirmed 06/26/21] sildenafil 100 mg tablet (Viagra) 50 mg PO DAILY PRN 06/26/21 [History Confirmed 06/26/21] Active Medications Magnesium Sulfate/Dextrose (Magnesium Sulfate / D5w) 1 gm in 100 mls @ 100 mls/hr IV Q1H SAMANTHA Stop: 06/26/21 17:20 Last Admin: 06/26/21 16:51 Dose: 100 mls/hr Documented by: Magnesium Sulfate/Dextrose (Magnesium Sulfate / D5w) 1 gm in 100 mls @ 50 mls/hr IV Q2H SAMANTHA Stop: 06/26/21 22:44 Medications Administered Magnesium Sulfate/Dextrose (Magnesium Sulfate / D5w) 1 gm in 100 mls @ 100 mls/hr IV Q1H SAMANTHA Stop: 06/26/21 17:20 Last Admin: 06/26/21 16:51 Dose: 100 mls/hr Documented by: [id number] Infusion: 06/26/21 16:50 Dose: 0 mls/hr Documented by: [id number] Admin: 06/26/21 15:31 Dose: 100 mls/hr Documented by: [id number] Discontinued Medications Aspirin (Aspirin 81 Mg Chew) 324 mg PO NOW STA Stop: 06/26/21 14:15 Last Admin: 06/26/21 14:23 Dose: 324 mg ECG Additional Comments: Wide QRS rhythm with frequent Premature ventricular complexes Left bundle branch block Abnormal ECG When compared with ECG of 13-JUN-2021 20:48, Wide QRS rhythm has replaced Sinus rhythm Normal sinus rhythm Septal infarct , age undetermined Abnormal ECG When compared with ECG of 26-JUN-2021 14:29, (unconfirmed) Sinus rhythm has replaced Atrial fibrillation Vent. rate has decreased BY 34 BPM Septal infarct is now Present ST no longer depressed in Inferior leads Code Status & VTE Plan Code Status CODE: FULL VTE: SCDS, Eliquis VTE Prophylaxis Plan VTE Prophylaxis will be ordered: Yes PG Care Time/CCT Total # of Minutes Spent Total Time Spent with Patient: Total time spent is greater than 50% in coordination of care (as documented) at patient's floor/unit and/or counseling patient: Coding Level of Care Code 09635 Initial Inpt Care Lvl 3 Diagnoses Atrial fibrillation I48.91 Colonic stricture K56.699 Hyperlipidemia E78.5 DM type 2 (diabetes mellitus, type 2) E11.9 BPH (benign prostatic hyperplasia) N40.0 GERD (gastroesophageal reflux disease) K21.9 Diarrhea R19.7
[2021-06-26 17:24] LABS: Phosphorus 2.1 mg/dl (2.5-4.9)
[2021-06-26 17:29] LABS: Troponin I High Sensitivity 4.7 pg/ml (0-20)
--- NOTE | 2021-06-26 17:35 | Emergency Department Note ---
History of Present Illness General Chief Complaint: Cardiac Assessment Stated Complaint: ILLNESS, CARDIAC ASSESSMENT Time Seen by Provider: 06/26/21 13:57 History of Present Illness Provider Complaint: + palpitations Onset (ago): 6 hour(s) Duration: + Constant Current Pain Intensity: 0 Context: + occurred during rest Arrhythmia history: + atrial fibrillation and + on anti-coagulants (Eliquis) Associated symptoms: no chest pain, no shortness of breath, no syncope, no near- syncope, no nausea, no vomiting or no cough HPI narrative: Patient took all his home medications including his metoprolol and flecainide today. He also took his Eliquis today. Patient had a recent cholecystectomy done last week Home Medications Medication Instructions Recorded Confirmed Type lisinopril 40 mg tablet 40 mg PO QAM #90 tab 11/04/18 06/26/21 History metformin 1,000 mg tablet 1,000 mg PO BIDM #180 tab 11/04/18 06/26/21 History tamsulosin 0.4 mg capsule 0.4 mg PO QAM 12/04/18 06/26/21 History cetirizine 10 mg tablet 10 mg PO QAM 03/16/20 06/26/21 History apixaban 5 mg tablet (Eliquis) 5 mg PO BID 06/25/20 06/26/21 History semaglutide (Ozempic) 1 mg SUBCUT WK 06/25/20 06/26/21 History pantoprazole 40 mg tablet,delayed 40 mg PO DAILY 30 Days #30 tab 07/03/20 06/26/21 Rx release (Protonix) insulin detemir U-100 100 unit/mL 5 unit SUBCUT HS 06/12/21 06/26/21 History (3 mL) subcutaneous pen acetaminophen 650 mg 650 mg PO Q8H PRN 06/26/21 06/26/21 History tablet,extended release (Tylenol 8 Hour) atorvastatin 10 mg tablet 5 mg PO HS 06/26/21 06/26/21 History buspirone 15 mg tablet 7.5 mg PO BID 06/26/21 06/26/21 History cinnamon bark 500 mg capsule 500 mg PO DAILY 06/26/21 06/26/21 History (Cinnamon) diclofenac sodium 1 % topical gel 2 g TOPICAL QID PRN 06/26/21 06/26/21 History finasteride 5 mg tablet 5 mg PO DAILY 06/26/21 06/26/21 History flecainide 100 mg tablet 150 mg PO Q12H 06/26/21 06/26/21 History folic acid 1 mg tablet 1 mg PO DAILY 06/26/21 06/26/21 History metoprolol tartrate 50 mg tablet 50 mg PO BID 06/26/21 06/26/21 History pregabalin 225 mg capsule (Lyrica) 225 mg PO BID 06/26/21 06/26/21 History sildenafil 100 mg tablet (Viagra) 50 mg PO DAILY PRN 06/26/21 06/26/21 History Allergies Allergy/AdvReac Type Severity Reaction Status Date / Time No Known Allergies Allergy Verified 06/26/21 15:20 Past Med/Surg History Medical History Atrial fibrillation dx 1994 > h/o cardioversion x 2; follows with [facility] Cardio/ Eliquis BPH (benign prostatic hyperplasia) Diabetic neuropathy DM type 2 (diabetes mellitus, type 2) IDDM GERD (gastroesophageal reflux disease) [place] (hard of hearing) HTN (hypertension) Hyperlipidemia Surgical History History of appendectomy History of cardioversion x 2 History of carpal tunnel release RT/LEFT History of colonoscopy History of esophagogastroduodenoscopy (EGD) History of surgery on arm LEFT ULNAR NERVE TRANSPOSITION Hx laparoscopic cholecystectomy (06/17/21) Laparoscopic cholecystectomy. Dr. Lowery Family History Mother Atrial fibrillation Grandfather (Maternal) Coronary heart disease Other No family history of adverse response to anesthesia No pertinent family history Social History Smoking Status: Never smoker Age Started Using Tobacco: 19; Age Quit Using Tobacco: 42; Years Smoked: 23; Number of Years Since Quit: 12; Second Hand Exposure: No; Hx Alcohol Use: Yes Alcohol type: beer Hx Substance Use: No Preferred Language: Pashto Communication Ability: Effective Human Services Professional Required: No Beliefs That Will Affect Care: None marital status: Current Living Situation: Alone How many Children do You have: 2 Feels Safe at Home: Yes Assistive Devices: None Review of Systems A total of 10 systems reviewed and were otherwise negative Physical Exam Vital Signs: Vital Signs - 24 hr 06/26/21 13:06 06/26/21 13:37 06/26/21 13:38 Temperature 37.1 C Temperature Source Oral Pulse Rate 114 H 104 H Pulse Rate [Right Apical] Pulse Rate from Sp O2 Sensor 71 Pulse Rhythm Irregular Pulse Rhythm [Righ t Apical] Respiratory Rate 24 20 Blood Pressure 113/86 109/78 Blood Pressure [Ri ght Arm] Blood Pressure Tiana n 95 88 Blood Pressure Tiana n [Right Arm] Blood Pressure Pos ition [Right Arm] Pulse Oximetry 97 98 Oxygen Delivery Me thod Room Air Room Air Room Air Sepsis Recent Feve r Within 48 Hours No Sepsis New/Unexpla ined Change in Men [place] Status No Sepsis Action Take n by Nursing No Action Required 06/26/21 14:00 06/26/21 14:06 06/26/21 14:16 Temperature Temperature Source Pulse Rate 131 H 118 H 117 H Pulse Rate [Right Apical] 119 H Pulse Rate from Sp O2 Sensor 69 85 Pulse Rhythm Pulse Rhythm [Righ t Apical] Respiratory Rate 21 20 20 Blood Pressure 111/65 148/76 H Blood Pressure [Ri ght Arm] 111/65 Blood Pressure Tiana n 80 100 Blood Pressure Tiana n [Right Arm] 80 Blood Pressure Pos ition [Right Arm] Lying Pulse Oximetry 97 97 98 Oxygen Delivery Me thod Room Air Sepsis Recent Feve r Within 48 Hours Sepsis New/Unexpla ined Change in Men [place] Status Sepsis Action Take n by Nursing 06/26/21 14:30 06/26/21 14:31 06/26/21 14:52 Temperature Temperature Source Pulse Rate 95 H 108 H Pulse Rate [Right Apical] Pulse Rate from Sp O2 Sensor 92 H 85 Pulse Rhythm Pulse Rhythm [Righ t Apical] Respiratory Rate 22 18 21 Blood Pressure 147/87 H 153/82 H Blood Pressure [Ri ght Arm] Blood Pressure Tiana n 107 105 Blood Pressure Tiana n [Right Arm] Blood Pressure Pos ition [Right Arm] Pulse Oximetry 97 99 Oxygen Delivery Me thod Sepsis Recent Feve r Within 48 Hours Sepsis New/Unexpla ined Change in Men [place] Status Sepsis Action Take n by Nursing 06/26/21 15:00 06/26/21 15:05 06/26/21 15:16 Temperature Temperature Source Pulse Rate 103 H Pulse Rate [Right Apical] 124 H Pulse Rate from Sp O2 Sensor 84 75 Pulse Rhythm Pulse Rhythm [Righ t Apical] Irregular Respiratory Rate 16 18 33 H Blood Pressure 145/73 H 118/86 Blood Pressure [Ri ght Arm] 145/73 H Blood Pressure Tiana n 97 96 Blood Pressure Tiana n [Right Arm] 97 Blood Pressure Pos ition [Right Arm] Pulse Oximetry 98 99 97 Oxygen Delivery Me thod Room Air Sepsis Recent Feve r Within 48 Hours Sepsis New/Unexpla ined Change in Men [place] Status Sepsis Action Take n by Nursing 06/26/21 15:30 06/26/21 15:36 06/26/21 15:45 Temperature Temperature Source Pulse Rate 76 68 Pulse Rate [Right Apical] 103 H Pulse Rate from Sp O2 Sensor 77 73 Pulse Rhythm Pulse Rhythm [Righ t Apical] Respiratory Rate 14 18 14 Blood Pressure 142/74 H 129/71 Blood Pressure [Ri ght Arm] 142/74 H Blood Pressure Tiana n 96 90 Blood Pressure Tiana n [Right Arm] 96 Blood Pressure Pos ition [Right Arm] Lying Pulse Oximetry 96 98 91 Oxygen Delivery Me thod Room Air Sepsis Recent Feve r Within 48 Hours Sepsis New/Unexpla ined Change in Men [place] Status Sepsis Action Take n by Nursing 06/26/21 16:00 06/26/21 16:15 06/26/21 16:30 Temperature Temperature Source Pulse Rate 69 70 Pulse Rate [Right Apical] Pulse Rate from Sp O2 Sensor 69 69 64 Pulse Rhythm Pulse Rhythm [Righ t Apical] Respiratory Rate 24 20 20 Blood Pressure 137/80 139/84 139/80 Blood Pressure [Ri ght Arm] Blood Pressure Tiana n 99 102 99 Blood Pressure Tiana n [Right Arm] Blood Pressure Pos ition [Right Arm] Pulse Oximetry 98 97 99 Oxygen Delivery Me thod Room Air Sepsis Recent Feve r Within 48 Hours Sepsis New/Unexpla ined Change in Men [place] Status Sepsis Action Take n by Nursing 06/26/21 16:45 06/26/21 17:00 Temperature Temperature Source Pulse Rate 63 63 Pulse Rate [Right Apical] Pulse Rate from Sp O2 Sensor 63 63 Pulse Rhythm Pulse Rhythm [Righ t Apical] Respiratory Rate 24 16 Blood Pressure 122/86 133/72 Blood Pressure [Ri ght Arm] Blood Pressure Tiana n 98 92 Blood Pressure Tiana n [Right Arm] Blood Pressure Pos ition [Right Arm] Pulse Oximetry 98 98 Oxygen Delivery Me thod Sepsis Recent Feve r Within 48 Hours Sepsis New/Unexpla ined Change in Men [place] Status Sepsis Action Take n by Nursing Physical Exam: Physical Exam GENERAL: He is oriented to person, place, and time. He appears well-developed and well-nourished. He does not appear distressed. HENT: Exam performed. - Head: Normocephalic and atraumatic. - Right Ear: External ear normal. No mastoid tenderness. - Left Ear: External ear normal. No mastoid tenderness. - Mouth/Throat: The oropharynx is clear and moist. No trismus in the jaw. No dental abscesses or uvula swelling. No oropharyngeal exudate or tonsillar abscesses. EYES: Conjunctivae and EOM are normal. Pupils are equal, round, and reactive to light. Right eye exhibits no discharge. Left eye exhibits no discharge. No scleral icterus. NECK: Normal range of motion. Neck supple. No JVD present. No spinous process tenderness present. No carotid bruit present. No rigidity. No tracheal deviation and normal range of motion present. No Brudzinski's sign and no Kernig's sign noted. CV: Tachycardic rate, irregular rhythm, normal heart sounds and intact distal pulses. There is no peripheral edema. Palpable radial pulses bue. PULM/CHEST: Effort normal and breath sounds normal. No respiratory distress. No stridor. He has no wheezes. He has no rales. - Chest Wall: He exhibits no tenderness. ABD: The abdomen is soft. Incisions over the anterior abdominal wall are clean and dry with no surrounding erythema or discharge. Bowel sounds are normal. He has no distension. No mass is present. There is no tenderness. There is no candice ound, no guarding, no Jones's sign and no tenderness at McBurney's point. Rovsig negative. MUSC/SKEL: Normal range of motion. There is no peripheral edema, tenderness or deformity. LYMPH: No cervical adenopathy. NEURO: He is alert and oriented to person, place, and time. He has normal strength. No cranial nerve deficit or sensory deficit. Coordination and gait normal. GCS eye subscore is 4. GCS verbal subscore is 5. GCS motor subscore is 6. Cerebellar tests wnl. SKIN: Skin is warm and dry. He is not diaphoretic. PSYCH: He has a normal mood and affect. Behavior is normal. Judgment and thought content normal. Course Course 1357: The patient was evaluated in room A12. A complete history and physical exam was performed Cardiac monitoring: An order was placed for continuous cardiac monitoring. The monitor shows a rate of 120-160 with irregular rhythm On arrival in the room the patient has an irregular rhythm on plodder operator with ventricular rate between 100 2160. The QRS complexes do appear wide and there appear to be some runs of V. tach. Amiodarone 150 mg bolus and drip ordered for the patient. Defibrillation pads were paced on the patient. Given that the patient had a recent surgery done and is now on a new ventricular dysrhythmia PE is of strong clinical concern. I-STAT will be ordered and if creatinine within normal limits patient will be taken to CTA after amiodarone bolus. 1433: Vital signs stable. Amiodarone bolus has improved the patient's ventricular rate. Patient taken to CT scan after amiodarone bolus and amiodarone drip started. Potassium and creatinine are within normal limits. Discussed with cardiology Dr. Larkin who states the patient either has a rate related bundle branch block or atrial fibrilation after reviewing previous EKGs from March. He recommends stopping the amiodarone drip and he does not want to use that since the patient is already on flecainide. He recommends starting the patient on cardizem drip. He agrees to be on consult when the patient is admitted to the hospitalist team. I went over to CT scan where the patient was about to get on the table and had the nurse stop the amiodarone drip. When the patient is done with CTA he will be started on Cardizem drip. 1500: Vital signs stable patient tolerating Cardizem drip well. 1615: Vital signs stable. Labs within normal limits with exception of low magnesium. Magnesium repleted completed in the emergency department CTA negative for PE. Patient has converted into sinus rhythm. Patient will be admitted to the [facility] hospitalist team Dr. Dias notified. Administered Medications Discontinued Medications Amiodarone HCl/Dextrose (Amiodarone 150mg / 100ml D5w) Confirm Administered Dose 150 mg IV .[employer] [place]-[facility] ONE Stop: 06/26/21 14:12 Last Admin: 06/26/21 14:40 Dose: Not Given Documented by: [id number] Amiodarone HCl (Amiodarone Iv Bolus & Drip) 1 ea IV NOW STA; Protocol Stop: 06/26/21 14:11 Last Admin: 06/26/21 15:36 Dose: 1 ea Documented by: [id number] Aspirin (Aspirin 81 Mg Chew) 324 mg PO NOW STA Stop: 06/26/21 14:15 Last Admin: 06/26/21 14:23 Dose: 324 mg Documented by: [id number] Amiodarone HCl/Dextrose (Nexterone / D5w) 150 mg in 100 mls @ 600 mls/hr IV NOW STA Stop: 06/26/21 14:19 Last Infusion: 06/26/21 14:32 Dose: 0 mls/hr Documented by: [id number] Cosigned by: [id number] Admin: 06/26/21 14:15 Dose: 600 mls/hr Documented by: [id number] Cosigned by: [id number] Amiodarone HCl/Dextrose (Nexterone / D5w) 360 mg in 200 mls @ 33.333 mls/hr IV ONE ONE Stop: 06/26/21 20:20 Last Infusion: 06/26/21 14:40 Dose: 0 mls/hr Documented by: [id number] Cosigned by: [id number] Admin: 06/26/21 14:30 Dose: 33.3 mls/hr Documented by: [id number] Cosigned by: [id number] Diltiazem HCl 125 mg/ Dextrose 125 mls @ 5 mls/hr IV .Q24H SAMANTHA; Protocol Stop: 07/26/21 14:44 Last Admin: 06/26/21 15:01 Dose: 5 mg/hr, 5 mls/hr Documented by: [id number] Cosigned by: [id number] Magnesium Sulfate/Dextrose (Magnesium Sulfate / D5w) 1 gm in 100 mls @ 100 mls/hr IV Q1H SAMANTHA Stop: 06/26/21 17:20 Last Admin: 06/26/21 16:51 Dose: 100 mls/hr Documented by: [id number] Infusion: 06/26/21 16:50 Dose: 0 mls/hr Documented by: [id number] Admin: 06/26/21 15:31 Dose: 100 mls/hr Documented by: [id number] Ioversol (Optiray 320 125ml) 120 ml IV ONCE ONE Stop: 06/26/21 14:56 Last Admin: 06/26/21 14:43 Dose: 120 ml Documented by: [id number] Miscellaneous (Stat Iv Infusion Titration Per Protocol) 1 ea N/A NOW STA Stop: 06/26/21 14:11 Last Admin: 06/26/21 15:36 Dose: 1 ea Documented by: [id number] Miscellaneous (Stat Iv Infusion Titration Per Protocol) 1 ea N/A NOW STA Stop: 06/26/21 14:39 Last Admin: 06/26/21 15:45 Dose: Not Given Documented by: [id number] Medical Decision Making Laboratory Data Result diagrams: 06/26/21 13:20 06/26/21 13:20 Lab Results 06/26/21 06/26/21 06/26/21 Range/Units 13:20 13:20 13:20 WBC 10.31 (4.8-10.8) K/uL RBC 4.43 L (4.7-6.1) M/uL Hgb 12.4 L (14.0-18.0) g/dL Hct 36.4 L (42-52) % MCV 82.2 (80-100) fL MCH 28.0 (25-34) pg MCHC 34.1 (32-36) g/dL RDW Std Deviation 40.8 (36.4-46.3) fL RDW Coeff of Yahaira 13.4 (11.5-14.5) % Plt Count 298 (130-400) K/uL MPV 9.9 (7.4-10.4) fL Immature Gran % (Auto) 0.2 % Neut % (Auto) 56.6 % Lymph % (Auto) 34.0 % Cascade % (Auto) 5.3 % Eos % (Auto) 3.4 % Baso % (Auto) 0.5 % Neut # (Auto) 5.83 (1.4-6.5) K/uL Lymph # (Auto) 3.51 H (1.2-3.4) K/uL Cascade # (Auto) 0.55 (0.11-0.59) K/uL Eos # (Auto) 0.35 (0-0.5) K/uL Baso # (Auto) 0.05 (0-0.2) K/uL Immature Gran # (Auto) 0.02 (0.00-0.02) K/uL PT 11.8 (9.0-12.0) Seconds INR 1.1 (0.9-1.1) APTT 30.2 (21.0-31.0) Seconds PTT Ratio 1.1 Sodium 135 L (136-145) mmol/L Potassium 4.1 (3.5-5.1) mmol/L Chloride 104 (98-107) mmol/L Carbon Dioxide 25 (21-32) mmol/L Anion Gap 6 (3-11) BUN 10 (6-23) mg/dl Creatinine 0.81 (0.6-1.4) mg/dl Est Cr Clr Drug Dosing 121.3 ml/min Est GFR ( Amer) 113.5 ml/min Est GFR (Non-Af Amer) 98.0 ml/min BUN/Creatinine Ratio 12.3 (10-20) Glucose 174 H (70-99(Fasting)) mg/dl Calcium 8.8 (8.5-10.1) mg/dl Ionized Calcium (1.12-1.32) mmol/L Phosphorus (2.5-4.9) mg/dl Magnesium (1.7-2.4) mg/dl Total Bilirubin 0.4 (0.2-1.0) mg/dl AST 18 (13-39) U/L ALT 19 (7-52) U/L Alkaline Phosphatase 28 L (34-104) U/L Troponin I High Sens 5.0 (0-20) pg/ml Total Protein 6.4 (6.0-8.3) gm/dl Albumin 3.7 (3.4-5.0) gm/dl Globulin 2.7 (2.5-4.0) gm/dl Albumin/Globulin Ratio 1.4 (0.9-2) SARS-CoV-2, RNA, NAAT (NEGATIVE) 06/26/21 06/26/21 06/26/21 Range/Units 13:20 16:10 16:50 WBC (4.8-10.8) K/uL RBC (4.7-6.1) M/uL Hgb (14.0-18.0) g/dL Hct (42-52) % MCV (80-100) fL MCH (25-34) pg MCHC (32-36) g/dL RDW Std Deviation (36.4-46.3) fL RDW Coeff of Yahaira (11.5-14.5) % Plt Count (130-400) K/uL MPV (7.4-10.4) fL Immature Gran % (Auto) % Neut % (Auto) % Lymph % (Auto) % Cascade % (Auto) % Eos % (Auto) % Baso % (Auto) % Neut # (Auto) (1.4-6.5) K/uL Lymph # (Auto) (1.2-3.4) K/uL Cascade # (Auto) (0.11-0.59) K/uL Eos # (Auto) (0-0.5) K/uL Baso # (Auto) (0-0.2) K/uL Immature Gran # (Auto) (0.00-0.02) K/uL PT (9.0-12.0) Seconds INR (0.9-1.1) APTT (21.0-31.0) Seconds PTT Ratio Sodium (136-145) mmol/L Potassium (3.5-5.1) mmol/L Chloride (98-107) mmol/L Carbon Dioxide (21-32) mmol/L Anion Gap (3-11) BUN (6-23) mg/dl Creatinine (0.6-1.4) mg/dl Est Cr Clr Drug Dosing ml/min Est GFR ( Amer) ml/min Est GFR (Non-Af Amer) ml/min BUN/Creatinine Ratio (10-20) Glucose (70-99(Fasting)) mg/dl Calcium (8.5-10.1) mg/dl Ionized Calcium (1.12-1.32) mmol/L Phosphorus 2.1 L (2.5-4.9) mg/dl Magnesium 1.3 L (1.7-2.4) mg/dl Total Bilirubin (0.2-1.0) mg/dl AST (13-39) U/L ALT (7-52) U/L Alkaline Phosphatase (34-104) U/L Troponin I High Sens 4.7 (0-20) pg/ml Total Protein (6.0-8.3) gm/dl Albumin (3.4-5.0) gm/dl Globulin (2.5-4.0) gm/dl Albumin/Globulin Ratio (0.9-2) SARS-CoV-2, RNA, NAAT NEGATIVE (NEGATIVE) 06/26/21 Range/Units 16:50 WBC (4.8-10.8) K/uL RBC (4.7-6.1) M/uL Hgb (14.0-18.0) g/dL Hct (42-52) % MCV (80-100) fL MCH (25-34) pg MCHC (32-36) g/dL RDW Std Deviation (36.4-46.3) fL RDW Coeff of Yahaira (11.5-14.5) % Plt Count (130-400) K/uL MPV (7.4-10.4) fL Immature Gran % (Auto) % Neut % (Auto) % Lymph % (Auto) % Cascade % (Auto) % Eos % (Auto) % Baso % (Auto) % Neut # (Auto) (1.4-6.5) K/uL Lymph # (Auto) (1.2-3.4) K/uL Cascade # (Auto) (0.11-0.59) K/uL Eos # (Auto) (0-0.5) K/uL Baso # (Auto) (0-0.2) K/uL Immature Gran # (Auto) (0.00-0.02) K/uL PT (9.0-12.0) Seconds INR (0.9-1.1) APTT (21.0-31.0) Seconds PTT Ratio Sodium (136-145) mmol/L Potassium (3.5-5.1) mmol/L Chloride (98-107) mmol/L Carbon Dioxide (21-32) mmol/L Anion Gap (3-11) BUN (6-23) mg/dl Creatinine (0.6-1.4) mg/dl Est Cr Clr Drug Dosing ml/min Est GFR ( Amer) ml/min Est GFR (Non-Af Amer) ml/min BUN/Creatinine Ratio (10-20) Glucose (70-99(Fasting)) mg/dl Calcium (8.5-10.1) mg/dl Ionized Calcium 1.14 (1.12-1.32) mmol/L Phosphorus (2.5-4.9) mg/dl Magnesium (1.7-2.4) mg/dl Total Bilirubin (0.2-1.0) mg/dl AST (13-39) U/L ALT (7-52) U/L Alkaline Phosphatase (34-104) U/L Troponin I High Sens (0-20) pg/ml Total Protein (6.0-8.3) gm/dl Albumin (3.4-5.0) gm/dl Globulin (2.5-4.0) gm/dl Albumin/Globulin Ratio (0.9-2) SARS-CoV-2, RNA, NAAT (NEGATIVE) Imaging Data Radiologist's Impression: Chest X-Ray 06/26/21 14:00 XR chest 1V portable HISTORY: 56 years-old Male cp acute atypical chest pain COMPARISON: CTA chest 06/26/2021 TECHNIQUE: Portable AP view of the chest FINDINGS: The cardiac silhouette is mildly enlarged. There is no pneumothorax, pleural effusion, airspace consolidation or overt pulmonary edema. Bones of the chest appear grossly intact. IMPRESSION: No acute process. ACT 112: Negative or not required by law. The above report was generated using voice recognition software. It may contain grammatical, syntax or spelling errors. Electronically signed by: Adrian Lopez M.D. 06/26/2021 3:17 PM Chest CTA 06/26/21 14:11 CT ANGIOGRAPHY OF THE CHEST, PULMONARY EMBOLUS PROTOCOL CLINICAL HISTORY: Shortness of breath. Chest pain. Evaluate for pulmonary embolus. COMPARISON STUDY: Chest CT April 20, 2021. Chest radiograph April 20, 2021. TECHNIQUE: Following IV administration of 120 mL of Optiray, helical axial images of the chest were obtained utilizing the pulmonary embolus protocol. Maximal intensity projections and sagittal and coronal reformats were viewed on an independent 3D workstation. IV contrast was administered without complication. Automated exposure control was utilized for the study. A dose lowering technique was utilized adhering to the principles of ALARA. CT DOSE: 561.96 mGycm FINDINGS: No pulmonary emboli are identified. There is no thoracic aortic dissection. Mild cardiomegaly is noted. No enlarged thoracic lymph nodes are present. There is no pneumothorax or pleural effusion. No consolidation to suggest pneumonia is noted. Mild groundglass opacities favor atelectasis. No acute fractures within the visualized bony thorax. Visualized portions of the upper abdomen demonstrate mild dilatation of the chest portion of the transverse colon with mild pericolonic stranding. Distention of this portion of the colon is decreased when compared to abdominal CT of June 12, 2021. IMPRESSION: 1. No pulmonary emboli identified. 2. No acute process within the chest. ACT 112: Negative or not required by law. Electronically signed by: Harrison Ramsey M.D. 06/26/2021 3:16 PM ECG Data Additional Comments: EKG #1 at 1319: Wide-complex tachycardia with a rate of 117. QRS 168 QTC 571. EKG #2 at 1411: Atrial fibrillation with a rate of 124. QRS 160 QTC 574. There are runs of V. tach. Left bundle branch block present. EKG #3 at 1429 status post amiodarone 150 mg bolus over 10 minutes: Atrial fibrillation with a rate of 104. QRS 100 QTC 46. Runs of V. tach. Left bundle branch block present. EKG #4 at 1609 while on Cardizem drip: Sinus rhythm with a rate of 70. IN QRS and QTc intervals within normal limits. No ST elevation or ST depression. MDM Narrative 1357: The patient was evaluated in room A12. A complete history and physical exam was performed Cardiac monitoring: An order was placed for continuous cardiac monitoring. The monitor shows a rate of 120-160 with irregular rhythm On arrival in the room the patient has an irregular rhythm on plodder operator with ventricular rate between 100 2160. The QRS complexes do appear wide and there appear to be some runs of V. tach. Amiodarone 150 mg bolus and drip ordered for the patient. Defibrillation pads were paced on the patient. Given that the patient had a recent surgery done and is now on a new ventricular dysrhythmia PE is of strong clinical concern. I-STAT will be ordered and if creatinine within normal limits patient will be taken to CTA after amiodarone bolus. 1433: Vital signs stable. Amiodarone bolus has improved the patient's ventricular rate. Patient taken to CT scan after amiodarone bolus and amiodarone drip started. Potassium and creatinine are within normal limits. Discussed with cardiology Dr. Larkin who states the patient either has a rate related bundle branch block or atrial fibrilation after reviewing previous EKGs from March. He recommends stopping the amiodarone drip and he does not want to use that since the patient is already on flecainide. He recommends starting the patient on cardizem drip. He agrees to be on consult when the patient is admitted to the hospitalist team. I went over to CT scan where the patient was about to get on the table and had the nurse stop the amiodarone drip. When the patient is done with CTA he will be started on Cardizem drip. 1500: Vital signs stable patient tolerating Cardizem drip well. 1615: Vital signs stable. Labs within normal limits with exception of low magnesium. Magnesium repleted completed in the emergency department CTA negative for PE. Patient has converted into sinus rhythm. Patient will be admitted to the [facility] hospitalist team Dr. Dias notified. Impression & Plan Atrial fibrillation, Wide-complex tachycardia Critical Care Time Critical Care Time: Yes Total Critical Care Time: 85 I have personally spent greater than 85 minutes of critical care time in the direct management of this patient. This includes bedside care, interpretation of diagnostic studies, and testing, discussion with consultants, patient, and family members, and other required patient management activities. This 85 minutes is in excess of all separately billable procedures. Discharge Plan Visit Data Chief Complaint: Cardiac Assessment Stated Complaint: ILLNESS, CARDIAC ASSESSMENT Discharge Problem: Atrial fibrillation, Wide-complex tachycardia Patient Disposition: Admitted As Inpatient Forms Stand [facility] Prescriptions Prescriptions: No Action pantoprazole [Protonix] 40 mg tablet,delayed release (DR/EC) 40 mg PO DAILY 30 Days Qty: 30 RF: 2 lisinopril 40 mg tablet 40 mg PO QAM Qty: 90 RF: 0 metformin 1,000 mg tablet 1,000 mg PO BIDM Qty: 180 RF: 0 tamsulosin 0.4 mg Capsule 0.4 mg PO QAM RF: 0 cetirizine 10 mg Tablet 10 mg PO QAM RF: 0 Eliquis 5 mg Tablet 5 mg PO BID RF: 0 Ozempic 0.25 mg or 0.5 mg(2 mg/1.5 mL) Pen Injector 1 mg SUBCUT WK RF: 0 atorvastatin 10 mg Tablet 5 mg PO HS RF: 0 sildenafil [Viagra] 100 mg Tablet 50 mg PO DAILY PRN (Reason: Erectile Dysfunction) RF: 0 flecainide 100 mg Tablet 150 mg PO Q12H RF: 0 metoprolol tartrate 50 mg Tablet 50 mg PO BID RF: 0 folic acid 1 mg Tablet 1 mg PO DAILY RF: 0 finasteride 5 mg Tablet 5 mg PO DAILY RF: 0 buspirone [BuSpar] 15 mg Tablet 7.5 mg PO BID RF: 0 cinnamon bark [Cinnamon] 500 mg Capsule 500 mg PO DAILY RF: 0 pregabalin [Lyrica] 225 mg Capsule 225 mg PO BID RF: 0 diclofenac sodium [Voltaren] 1 % Gel 2 g TOPICAL QID PRN (Reason: Pain) RF: 0 acetaminophen [Tylenol 8 Hour] 650 mg tablet extended release 650 mg PO Q8H PRN (Reason: PAIN/FEVER) RF: 0 insulin detemir U-100 100 unit/mL (3 mL) Insulin Pen 5 unit SUBCUT HS RF: 0 Referrals Referrals: Jaime Lopez PROOF CLERKGraceC [Primary Care Provider] - [facility] [Non-Staff] -
[2021-06-26] MEDS ORDERED: GLUCAGON FOR INJ 1 MG VIAL SQ PRN (18:29)
[2021-06-26] MEDS ORDERED: GLUCOSE 10 TABS/TUBE PO PRN (18:29)
[2021-06-26] MEDS ORDERED: CARBOHYDRATES FOR HYPOGLYCEMIA PO PRN (18:29)
[2021-06-26] MEDS ORDERED: GLUCOSE 40% GEL 15 GM TUBE PO PRN (18:29)
[2021-06-26] MEDS ORDERED: ACETAMINOPHEN 325 MG TAB PO PRN (18:29)
[2021-06-26] MEDS ORDERED: DEXTROSE 50% 50 ML SYRINGE IV PRN (18:29)
[2021-06-26] MEDS ORDERED: AMIODARONE / D5W 360 MG/200 ML BAG IV SCH (20:15)
[2021-06-26] MEDS: FLECAINIDE ACETATE 100 MG TABLET PO SCH (20:21)
[2021-06-26] MEDS: APIXABAN 5 MG TABLET PO SCH (20:22)
[2021-06-26] MEDS: PREGABALIN 75 MG CAP PO SCH (20:24)
[2021-06-26] MEDS: busPIRone 7.5 MG TAB PO SCH (20:24)
[2021-06-26] MEDS: INSULIN ASPART PER UNIT SC SCH (20:27)
[2021-06-26] MEDS: METOPROLOL TARTRATE 50 MG TAB PO SCH (20:55)
[2021-06-26] MEDS ORDERED: ATORVASTATIN 10 MG TAB PO SCH (21:00)
[2021-06-26] MEDS ORDERED: INSULIN DETEMIR FLEXPEN/FLEX TOUCH 100 UNITS/ML 3ML SQ SCH (21:00)
[2021-06-26] MEDS: MINERAL OIL 30 ML UDC PO SCH (22:06)
[2021-06-27] MEDS ORDERED: MELATONIN 3 MG TAB PO PRN (00:09)
[2021-06-27 07:18] LABS: iSTAT Creatinine 0.8 mg/dl (0.6-1.3); iSTAT Hemoglobin 13.6 g/dl (14.0-18.0); iSTAT Ionized Calcium 1.1 mmol/l (1.12-1.32); iSTAT Potassium 4.4 mmol/L (3.3-5.0)
[2021-06-27] MEDS: FLECAINIDE ACETATE 100 MG TABLET PO SCH (07:59)
[2021-06-27] MEDS: APIXABAN 5 MG TABLET PO SCH (07:59)
[2021-06-27] MEDS: METOPROLOL TARTRATE 50 MG TAB PO SCH (07:59)
[2021-06-27] MEDS: busPIRone 7.5 MG TAB PO SCH (08:00)
[2021-06-27] MEDS: MINERAL OIL 30 ML UDC PO SCH (08:01)
[2021-06-27] MEDS: PREGABALIN 75 MG CAP PO SCH (08:03)
[2021-06-27] MEDS: INSULIN ASPART PER UNIT SC SCH ×3 (08:04→17:10)
[2021-06-27 08:48] LABS: Basophils # (auto) 0.03 K/uL (0-0.2); Basophils % (auto) 0.3 %; Eosinophils # (auto) 0.36 K/uL (0-0.5); Eosinophils % (auto) 3.6 %; Hematocrit (blood only) 35.6 % (42-52); Hemoglobin 11.8 g/dL (14.0-18.0); Immature Granulocytes # (auto) 0.03 K/uL (0.00-0.02); Immature Granulocytes % (auto) 0.3 %; Lymphocytes # (auto) 3.29 K/uL (1.2-3.4); Mean Corpuscular Hemoglobin 27.5 pg (25-34); Mean Corpuscular Hgb Conc 33.1 g/dL (32-36); Mean Platelet Volume 9.9 fL (7.4-10.4); Monocytes # (auto) 0.42 K/uL (0.11-0.59); Monocytes % (auto) 4.2 %; Neutrophils # (auto) 5.85 K/uL (1.4-6.5); Neutrophils % (auto) 58.6 %; Platelet Count 266 K/uL (130-400); RDW Coefficient of Variation 13.6 % (11.5-14.5); RDW Standard Deviation 41.3 fL (36.4-46.3); Red Blood Count 4.29 M/uL (4.7-6.1); White Blood Count 9.98 K/uL (4.8-10.8)
[2021-06-27] MEDS ORDERED: TAMSULOSIN HCL 0.4 MG CAP PO SCH (09:00)
[2021-06-27] MEDS ORDERED: lisinopril 40 MG TAB PO SCH (09:00)
[2021-06-27] MEDS ORDERED: FINASTERIDE 5 MG TAB PO SCH (09:00)
[2021-06-27] MEDS ORDERED: PANTOprazole 40 MG TAB PO SCH (09:00)
[2021-06-27] MEDS ORDERED: FOLIC ACID 1 MG TAB PO SCH (09:00)
[2021-06-27] MEDS ORDERED: CETIRIZINE HCL 10 MG TABLET PO SCH (09:00)
[2021-06-27 09:09] LABS: BUN Creatinine Ratio 10.7 (10-20); Calcium 8.5 mg/dl (8.5-10.1); Creatinine Clr Calc Pharmacy 117.1 ml/min; Est GFR (African American) 111.9 ml/min; Est GFR (Non-African American) 96.5 ml/min; Magnesium 1.8 mg/dl (1.7-2.4); Potassium 4.3 mmol/L (3.5-5.1)
[2021-06-27] MEDS ORDERED: MAGNESIUM OXIDE 400 MG TAB PO SCH (10:15)
--- NOTE | 2021-06-27 12:08 | Electrocardiogram Report ---
Test Reason : Blood Pressure : / mmHG Vent. Rate : 117 BPM Atrial Rate : 127 BPM P-R Int : 000 ms QRS Dur : 168 ms QT Int : 410 ms P-R-T Axes : 000 -07 160 degrees QTc Int : 571 ms Wide QRS rhythm with frequent Premature ventricular complexes , likely atrial fibrillation Left bundle branch block Abnormal ECG When compared with ECG of 13-JUN-2021 20:48, Wide QRS rhythm has replaced Sinus rhythm Confirmed by Kevin Baltazar ([id number]) on 06/27/2021 12:08:02 PM Referred By: Confirmed By:Kevin Baltazar
--- NOTE | 2021-06-27 12:10 | Electrocardiogram Report ---
Test Reason : Blood Pressure : / mmHG Vent. Rate : 124 BPM Atrial Rate : 078 BPM P-R Int : 000 ms QRS Dur : 160 ms QT Int : 400 ms P-R-T Axes : 000 -20 111 degrees QTc Int : 574 ms Wide QRS tachycardia , probably atrial fibrillation with aberrancy Left bundle branch block Abnormal ECG When compared with ECG of 26-JUN-2021 13:19, (unconfirmed) No significant change Confirmed by Kevin Baltazar ([id number]) on 06/27/2021 12:09:41 PM Referred By: [facility] Confirmed By:Kevin Baltazar
--- NOTE | 2021-06-27 12:11 | Electrocardiogram Report ---
Test Reason : Blood Pressure : / mmHG Vent. Rate : 104 BPM Atrial Rate : 104 BPM P-R Int : 000 ms QRS Dur : 100 ms QT Int : 370 ms P-R-T Axes : 000 -17 006 degrees QTc Int : 486 ms Atrial fibrillation with rapid ventricular response with intermittent aberrant ventricular conduction Nonspecific ST abnormality Abnormal ECG When compared with ECG of 26-JUN-2021 14:11, (unconfirmed) No significant change Confirmed by Kevin Baltazar ([id number]) on 06/27/2021 12:11:11 PM Referred By: [facility] Confirmed By:Kevin Baltazar
--- NOTE | 2021-06-27 12:15 | Electrocardiogram Report ---
Test Reason : Blood Pressure : / mmHG Vent. Rate : 070 BPM Atrial Rate : 070 BPM P-R Int : 200 ms QRS Dur : 098 ms QT Int : 422 ms P-R-T Axes : 068 -05 000 degrees QTc Int : 455 ms Normal sinus rhythm Septal infarct , age undetermined Abnormal ECG When compared with ECG of 26-JUN-2021 14:29, (unconfirmed) Sinus rhythm has replaced Atrial fibrillation Vent. rate has decreased BY 34 BPM Septal infarct is now Present Confirmed by Kevin Baltazar ([id number]) on 06/27/2021 12:14:44 PM Referred By: [facility] Confirmed By:Kevin Baltazar
--- NOTE | 2021-06-27 14:25 | Electrocardiogram Report ---
Test Reason : Blood Pressure : / mmHG Vent. Rate : 066 BPM Atrial Rate : 066 BPM P-R Int : 200 ms QRS Dur : 102 ms QT Int : 444 ms P-R-T Axes : 060 008 031 degrees QTc Int : 465 ms Normal sinus rhythm Normal ECG When compared with ECG of 26-JUN-2021 16:09, (unconfirmed) Criteria for Septal infarct are no longer Present Nonspecific T wave abnormality has replaced inverted T waves in Inferior leads Confirmed by Kevin Baltazar ([id number]) on 06/27/2021 2:24:42 PM Referred By: [facility] Confirmed By:Kevin Baltazar
--- NOTE | 2021-06-27 16:47 | Discharge Summary ---
Date of Service June 27, 2021 Admission HPI Per Admitting Provider 56 YOM with medical history of: PAF (on Flecainide and Eliquis), idiopathic urticaria, constipation, colonic strictures, s/p cholecystectomy (06/17/21), DMII (insulin dependant), HTN, GERD, HLD, BPH. Patient returns to the [facility] today for atrial fibrillation with rates 124-114 and feeling flushed and tired. Patient states this started this morning, this is not associated with any dyspnea, chest pain, arm pain or back pain. Patient is taking mineral oil for his issues with constipation leading to bowel obstructions. He has 3-4 loose stools per day. In the EMD the patient had CTA of the chest performed which is negative for any PE, he had an ECG done and routine labs to include HScTNI. His labs returned with low a magnesium of 1.3- he was ordered replacement and during replacement of his mag he converted back to NSR. He has not missed any doses of his Flecainide, metoprolol, or his Eliquis. Patient was to be started on amiodarone drip by the [facility] in light of his intolerance to Afib - as he has converted with a likely cause will hold on further anti-arrhythmics. He will be admitted to the PCU will continue with magnesium replacement with goal between 2-2.5. Draw complete electrolyte panel with ionized calcium and phos. His HGB and HCT are increased from previous as well. Overall the patient is recovering well from his previous admission. His surgical sites are well healing and he is without pain or symptoms. He is following with his solar energy system installer at the [place] with a referral to Winston SANTILLAN at [facility] on for evaluation for ablation. For his colonic stricture he had Colonoscopy performed in May where he had a dilation and was noted to have another severe stricture- he is now on mineral oil BID as above- he has an appointment with [facility] next week. For his idiopathic urticaria has a referral to log deckman coming up as well- today he presents without this rash. COVID test on admission is: NEGATIVE Principal Diagnosis Paroxysmal atrial fibrillation in the setting of hypomagnesium Discharge Exam PHYSICAL EXAM: General: awake, alert, no apparent distress Head: Normocephalic, atraumatic ENT: PERRL, EOMI, no pharyngeal exudate, mucous membranes moist Neuro: AAO x 3, speech clear and appropriate, strength intact bilaterally 5/5, sensation intact and equal all extremities and dermatomes, no pronator drift Chest: equal rise and fall of the chest, no accessory muscle use, no heaves or thrills, Clear to auscultation, on room air, Cardiac: Regular rate and rhythm, telemetry reviewed- afib with LBB- which he has with elevated rates and afib, skin warm dry, cap refill <3 seconds, peripheral pulses +2 no JVD, no murmur, no edema GI: NABS x 4 quadrants, soft, nontender to palpation, no rebound, guarding or tenderness : Spontaneously voiding, no pain, no CVA tenderness, Extremities: Normal inspection, no peripheral edema or erythema, calfs nontender to palpation Psych: Normal mood and affect Skin: no rash, well healed in incisions to abdomen Discharge Data Allergies Allergy/AdvReac Type Severity Reaction Status Date / Time No Known Allergies Allergy Verified 06/26/21 15:20 Consultations 06/26/21 16:03 ED Decision to Admit Stat Ordered Studies 06/26/21 14:11 CT angio chest PE protocol Stat Hospital Course (1) Atrial fibrillation: PAF on flecainide and Eliquis - Likely related to low magnesium- converted in EMD with magnesium replacement and is now in NSR - HScTNI negative x2 - CTA of the chest negative for PE - Continue with Flecainide he is on 150mg PO BID - max dose -Monitor for 24 hours, magnesium level increased around 2, patient was discharged on magnesium oxide 400 mg twice daily, patient was advised to follow- up with his solar energy system installer in 1 week, patient was advised to come back to the hospital in case of recurrence of paroxysmal A. fib (2) Colonic stricture: As per HPI has follow up with colo-rectal- reports doing well at home - he has settled on mineral oil for his laxitive of choice- BID (3) Diarrhea: Medication induced with mineral oil or possible post cholyecestomy - Until evaluated by colorectal avoid constipation or reversing- may tolerate dose adjustment or addition of cholestyramine (4) Hyperlipidemia: Continue with statin (5) DM type 2 (diabetes mellitus, type 2): continue with basal and bolus insulin - aspart sliding scale CF 20 with carb ratio 1:12 (6) BPH (benign prostatic hyperplasia): Continue with Finasteride (7) GERD (gastroesophageal reflux disease): Continue with PPI Total Time Total Time Spent Total Time Spent (In Minutes): 45 Discharge Plan Discharge Items Patient Disposition: Home - Self-Care Reason For Visit: AFIB Discharge Diagnosis: Fibrillation with RVR Activity: Resume your previous activity Bathing: No limitations Sexual Activity: When tolerated Exercise/Sports: None Driving/Machine Use: No limitations Non-emergency contact: Primary Care Provider and Retail Custodial Associate Call non-emergency contact if: you have any medication questions Follow-up/Referrals: Jaime Lopez NP-C [Primary Care Provider] - Diet: Heart Healthy Addtl Attending Provider Instructions: Please contact your solar energy system installer and inform about the episode of A. fib with RVR and low magnesium level Pending Studies at Discharge: Yes Studies:: Magnesium level in 2 weeks Stand-Alone Forms: My [employer], Smoking Cessation Medications and DC Order Prescriptions: New magnesium oxide 400 mg (241.3 mg magnesium) Tablet 400 mg PO BID Qty: 60 RF: 0 Continued pantoprazole [Protonix] 40 mg tablet,delayed release (DR/EC) 40 mg PO DAILY 30 Days Qty: 30 RF: 2 lisinopril 40 mg tablet 40 mg PO QAM Qty: 90 RF: 0 metformin 1,000 mg tablet 1,000 mg PO BIDM Qty: 180 RF: 0 tamsulosin 0.4 mg Capsule 0.4 mg PO QAM RF: 0 cetirizine 10 mg Tablet 10 mg PO QAM RF: 0 Eliquis 5 mg Tablet 5 mg PO BID RF: 0 Ozempic 0.25 mg or 0.5 mg(2 mg/1.5 mL) Pen Injector 1 mg SUBCUT WK RF: 0 atorvastatin 10 mg Tablet 5 mg PO HS RF: 0 sildenafil [Viagra] 100 mg Tablet 50 mg PO DAILY PRN (Reason: Erectile Dysfunction) RF: 0 flecainide 100 mg Tablet 150 mg PO Q12H RF: 0 metoprolol tartrate 50 mg Tablet 50 mg PO BID RF: 0 folic acid 1 mg Tablet 1 mg PO DAILY RF: 0 finasteride 5 mg Tablet 5 mg PO DAILY RF: 0 buspirone 15 mg Tablet 7.5 mg PO BID RF: 0 cinnamon bark [Cinnamon] 500 mg Capsule 500 mg PO DAILY RF: 0 pregabalin [Lyrica] 225 mg Capsule 225 mg PO BID RF: 0 diclofenac sodium 1 % Gel 2 g TOPICAL QID PRN (Reason: Pain) RF: 0 acetaminophen [Tylenol 8 Hour] 650 mg tablet extended release 650 mg PO Q8H PRN (Reason: PAIN/FEVER) RF: 0 insulin detemir U-100 100 unit/mL (3 mL) Insulin Pen 5 unit SUBCUT HS RF: 0 Discharge Orders: Discharge Order (Routine); Ordered 06/27/21 Ordered By: Bhupinder Orona Admission Data Admit Date/Time: 06/26/21 16:50 Attending Provider: Bhupinder Orona Admit Provider: Luigi Dias Primary Care Provider: Jaime Lopez Other Providers: Luigi Dias ; [facility] Other Interventions: Discharge Summary Assessment (RN) Last Done: 06/27/21 16:15 Coding Level of Care Code 86476 OBS Care - Discharge Diagnoses Atrial fibrillation I48.91 Atrial fibrillation type: unspecified Colonic stricture K56.699 Diarrhea R19.7 Hyperlipidemia E78.5 DM type 2 (diabetes mellitus, type 2) E11.9 BPH (benign prostatic hyperplasia) N40.0 GERD (gastroesophageal reflux disease) K21.9
== END 2021-06-27 17:52 | disposition home or self-care (01) | DRG 309 ==
LOC: ED 13:06 → 2S 16:50 → SUATTDRO 16:50 → 2S 17:43
DX: K56.699 Other intestinal obstruction unspecified as to partial versus complete obstruction; Z79.01 Long term (current) use of anticoagulants; Z79.4 Long term (current) use of insulin; I48.0 Paroxysmal atrial fibrillation; R00.0 Tachycardia, unspecified; K21.9 Gastro-esophageal reflux disease without esophagitis; N40.0 Benign prostatic hyperplasia without lower urinary tract symptoms; E78.5 Hyperlipidemia, unspecified; E83.42 Hypomagnesemia; E11.40 Type 2 diabetes mellitus with diabetic neuropathy, unspecified